=== PATIENT | female | born 1985 | race Caucasian/White ===

== ENCOUNTER → 2016-07-22 | Outpatient (CLI) | payer MEDICARE, MEDICAID | LOC: MW.CHRC 13:15 | PROVIDERS: ATTEND Family Medicine | DX: J00 Acute nasopharyngitis [common cold] (principal) | CPT/HCPCS: 87804; G0463 ==

== ENCOUNTER → 2016-08-21 | Outpatient (CLI) | payer MEDICARE, MEDICAID | LOC: MW.CHFP 08:00 | PROVIDERS: ATTEND Physician Assistant | DX: J20.9 Acute bronchitis, unspecified (principal) | CPT/HCPCS: G0463 ==

== ENCOUNTER → 2016-10-17 | Outpatient (CLI) | payer MEDICARE, MEDICAID | LOC: MW.CHRC 08:00 | PROVIDERS: ATTEND Family Medicine | DX: M25.551 Pain in right hip (principal); M25.552 Pain in left hip; R11.2 Nausea with vomiting, unspecified; Z98.84 Bariatric surgery status | CPT/HCPCS: G0463 ==

== ENCOUNTER 2016-12-06 13:20 | Emergency (ER) | payer MEDICARE, MEDICAID ==
[2016-12-06 13:58] VITALS: BP 125/83
[2016-12-06] MEDS ORDERED: Acetaminophen/HYDROcodone 325-7.5 MG Tab PO ONE (14:20)
--- NOTE | 2016-12-06 14:25 | EDM.PDOC ---
ED HPI GENERAL MEDICAL PROBLEM - General Chief Complaint: Headache Stated Complaint: HEADACHE Time Seen by Provider: 12/06/16 14:10 Source of Information: Reports: Patient History Limitations: Reports: No Limitations - History of Present Illness INITIAL COMMENTS - FREE TEXT/NARRATIVE: HISTORY AND PHYSICAL: History of present illness: [Patient is well-known to this ER. Complains of a frontal headache. Her symptoms have been going on for the past several days. She saw her PCP Dr. Cartwright yesterday who prescribed cefdinir for a sinus infection. She's been following with a local dentist for several teeth that need pulled due to ongoing chronic abscesses. She's been taking Tylenol for her dental pain and headache which is not helping. She complains of congestion in her nose and head. Complains of left ear pain. No sore throat. She has been able to blow out any nasal drainage. No nausea or vomiting or abdominal pain. No cough or chest congestion. Has no other complaints or concerns at this time.] Review of systems: As per history of present illness and below otherwise all systems reviewed and negative. Past medical history: As per history of present illness and as reviewed below otherwise noncontributory. Surgical history: As per history of present illness and as reviewed below otherwise noncontributory. Social history: No reported history of drug or alcohol abuse. Family history: As per history of present illness and as reviewed below otherwise noncontributory. Physical exam: HEENT: Atraumatic, normocephalic. Left TM is moderately erythematous with a mild effusion. Right TM is unremarkable. Nares are erythematous and boggy. Oral mucous membranes are pink and moist tonsillar swelling erythema or exudate. Tooth #24 and 25 are intact but show significant erythema and decay at their bases. Neck is supple no lymphadenopathy appreciated. Lungs: Clear to auscultation, breath sounds equal bilaterally. Heart: S1S2, regular rate and rhythm. No murmur.. Abdomen: Soft, nondistended, nontender. Negative for costovertebral tenderness. Neuro: Awake, alert, oriented. Motor and sensory unremarkable throughout. Exam nonfocal. Therapeutics: [Hydrocodone 7.5 mg/325 mg 1 po] Impression: [Headache Sinusitis Dental abscesses] Plan: [Continue antibiotics as prescribed. She was given 1 dose of hydrocodone in the ER. Encouraged her to continue Tylenol and start an [id number] decongestant. Follow up with Dr. Cartwright next week. She is in agreement with this plan with her questions answered and concerns are addressed.] Definitive disposition and diagnosis as appropriate pending reevaluation and review of above. frontal area head Pain Score (Numeric/FACES): 7 - Related Data Allergies Allergy/AdvReac Type Severity Reaction Status Date / Time clarithromycin [From Biaxin] Allergy Hives Verified 12/06/16 13:54 Iodinated Contrast- Oral and Allergy Difficulty Verified 12/06/16 13:54 IV Dye Breathing [Iodinated Contrast Media - IV Dye] ketorolac Allergy Nausea and Verified 12/06/16 13:54 Vomiting ketorolac tromethamine Allergy Nausea and Verified 12/06/16 13:54 [From Toradol] Vomiting lorazepam [From Ativan] Allergy Change Verified 12/06/16 13:54 Mental Status NSAIDS (Non-Steroidal Allergy Stomach Verified 12/06/16 13:54 Anti-Inflamma Upset tramadol Allergy Nausea and Verified 12/06/16 13:54 Vomiting tramadol HCl [From Ultracet] Allergy Cannot Verified 12/06/16 13:54 Remember Home Meds: Home Meds B12 Injection 1 dose IM ASDIRECTED 07/26/14 [History] Ondansetron [Ondansetron ODT] 1 tab PO ASDIRECTED 10/26/15 [History] Fluticasone Propionate [Flonase] 1 inh NASBOTH BID #1 bottle 02/20/16 [Rx] Zolpidem Tartrate [Ambien] 5 mg PRN 02/20/16 [History] Past Medical History - Past Health History Medical/Surgical History: Denies Medical/Surgical History HEENT History: Reports: Impaired Vision Cardiovascular History: Reports: None Respiratory History: Reports: Asthma, Pneumonia, Recurrent Gastrointestinal History: Reports: Bowel Obstruction, Other (See Below) Other Gastrointestinal History: gastric bypass Genitourinary History: Reports: None NETWORK CONSULTANT History: Reports: Spontaneous Musculoskeletal History: Reports: None Neurological History: Reports: Other (See Below) Other Neuro History: pseudo tumor, dystonia Psychiatric History: Reports: None Endocrine/Metabolic History: Reports: None Hematologic History: Reports: Anemia Immunologic History: Reports: Other (See Below) Other Immunologic History: Dystonia Oncologic (Cancer) History: Reports: None Dermatologic History: Reports: None - Infectious Disease History Infectious Disease History: Reports: None - Past Surgical History Head Surgeries/Procedures: Reports: Shunt HEENT Surgical History: Reports: Adenoidectomy, Oral Surgery, Tonsillectomy Cardiovascular Surgical History: Reports: None Neurological Surgical History: Reports: Other (See Below) Musculoskeletal Surgical History: Reports: Other (See Below) Dermatological Surgical History: Reports: None Social & Family History - Family History Family Medical History: Noncontributory - Tobacco Use Smoking Status *Q: Never Smoker Years of Tobacco use: 6 Packs/Tins Daily: 0.5 Used Tobacco, but Quit: Yes Month Tobacco Last Used: 07/2015 Second Hand Smoke Exposure: No - Caffeine Use Caffeine Use: Reports: None - Alcohol Use Days Per Week of Alcohol Use: 1 Number of Drinks Per Day: 4 Total Drinks Per Week: 4 - Recreational Drug Use Recreational Drug Use: No ED ROS GENERAL - Review of Systems Review Of Systems: ROS reveals no pertinent complaints other than HPI. - Physical Exam Exam: See Below Course - Vital Signs Last Recorded V/S: Last Vital Signs Temp 97.8 F 12/06/16 13:56 Pulse 80 12/06/16 13:56 Resp 18 12/06/16 13:56 BP 125/83 12/06/16 13:56 Pulse Ox 97 12/06/16 13:56 - Orders/Labs/Meds Meds: Medications Discontinued Medications Generic Name Dose Route Start Last Admin Trade Name Stacey PRN Reason Stop Dose Admin Hydrocodone Bitart/Acetaminophen 1 tab 12/06/16 14:20 12/06/16 14:32 [place] 325-7.5 Mg PO 12/06/16 14:21 1 tab ONETIME ONE Administration Departure - Departure Time of Disposition: 14:30 Disposition: Home, Self-Care 01 Condition: Good Clinical Impression: Head congestion - Discharge Information Instructions: Sinusitis, Adult, Cufh-[id number] Referrals: PCP,None [Primary Care Provider] - Forms: ED Department Discharge Additional Instructions: The following information is given to patients seen in the emergency department who are being discharged to home. This information is to outline your options for follow-up care. We provide all patients seen in our emergency department with a follow-up referral. The need for follow-up, as well as the timing and circumstances, are variable depending upon the specifics of your emergency department visit. If you don't have a primary care physician on staff, we will provide you with a referral. We always advise you to contact your personal physician following an emergency department visit to inform them of the circumstance of the visit and for follow-up with them and/or the need for any referrals to a consulting specialist. The emergency department will also refer you to a specialist when appropriate. This referral assures that you have the opportunity for follow-up care with a specialist. All of these measure are taken in an effort to provide you with optimal care, which includes your follow-up. Under all circumstances we always encourage you to contact your private physician who remains a resource for coordinating your care. When calling for follow-up care, please make the office aware that this follow-up is from your recent emergency room visit. If for any reason you are refused follow-up, please contact the [facility] emergency department at and asked to speak to the emergency department charge nurse. [address] [address] Recheck with PCP or at the clinic with the above in 24-48 hours. Continue Tylenol for discomfort. Take Mucinex D or other [id number] decongestants. Follow instructions on the box. Return to ER as needed as discussed.
== END 2016-12-06 14:34 | disposition home or self-care (01) ==
LOC: MW.ED 13:20
DX: J32.9 Chronic sinusitis, unspecified (principal); K04.7 Periapical abscess without sinus; J45.909 Unspecified asthma, uncomplicated; Z87.01 Personal history of pneumonia (recurrent); Z86.2 Personal history of diseases of the blood and blood-forming organs and certain disorders involving the immune mechanism; Z98.84 Bariatric surgery status; Z98.890 Other specified postprocedural states; Z88.1 Allergy status to other antibiotic agents; Z88.5 Allergy status to narcotic agent; Z88.6 Allergy status to analgesic agent; Z88.8 Allergy status to other drugs, medicaments and biological substances; Z91.041 Radiographic dye allergy status
CPT/HCPCS: 99282; A9270; 99283

== ENCOUNTER 2017-03-07 16:14 | Emergency (ER) | payer MEDICARE, MEDICAID ==
[2017-03-07 16:35] VITALS: BP 134/81
--- NOTE | 2017-03-07 17:08 | EDM.PDOC ---
ED HPI GENERAL MEDICAL PROBLEM - General Chief Complaint: Lower Extremity Injury/Pain Stated Complaint: PT HURT RT FOOT Time Seen by Provider: 03/07/17 16:16 Source of Information: Reports: Patient History Limitations: Reports: No Limitations - History of Present Illness INITIAL COMMENTS - FREE TEXT/NARRATIVE: History of present illness: []Patient fell down some stairs 4 days ago and continues to have right foot pain. On other injuries have healed clearheaded and elbow. She is here for an x- ray and reevaluation. Complaints of swelling of her foot and walking. Review of systems: As per history of present illness and below otherwise all systems reviewed and negative. Past medical history: As per history of present illness and as reviewed below otherwise noncontributory. Surgical history: As per history of present illness and as reviewed below otherwise noncontributory. Social history: No reported history of drug or alcohol abuse. Family history: As per history of present illness and as reviewed below otherwise noncontributory. Physical exam: General: Well developed, well nourished in NAD HEENT: Atraumatic, normocephalic, pupils reactive, negative for conjunctival pallor or scleral icterus, mucous membranes moist, throat clear, neck supple, nontender, trachea midline. Lungs: Clear to auscultation, breath sounds equal bilaterally, chest nontender. Heart: S1S2, regular, negative for clicks, rubs, or JVD. Abdomen: Soft, nondistended, nontender. Negative for masses or hepatosplenomegaly. Negative for costovertebral tenderness. Pelvis: Stable nontender. Genitourinary: Deferred. Rectal: Deferred. Extremities: Right foot with superficial abrasions to the base of the ankle. There is mild swelling of the foot throughout dorsalis pedis pulses are palpable , capillary refill is brisk, sensation is intact. Neurovascular unremarkable. Neuro: Awake, alert, oriented. Cranial nerves II through XII unremarkable. Cerebellum unremarkable. Motor and sensory unremarkable throughout. Exam nonfocal. Diagnostics: []X-rays foot negative for fracture Therapeutics: [] Impression: []Right foot sprain and abrasion Plan: []Ice elevate foot above the level her heart as much as possible Tylenol for pain return if symptoms worsen or change Definitive disposition and diagnosis as appropriate pending reevaluation and review of above. Right Ankle Pain Score (Numeric/FACES): 7 - Related Data Allergies Allergy/AdvReac Type Severity Reaction Status Date / Time clarithromycin [From Biaxin] Allergy Hives Verified 03/07/17 16:36 Iodinated Contrast- Oral and Allergy Difficulty Verified 03/07/17 16:36 IV Dye Breathing [Iodinated Contrast Media - IV Dye] ketorolac Allergy Nausea and Verified 03/07/17 16:36 Vomiting ketorolac tromethamine Allergy Nausea and Verified 03/07/17 16:36 [From Toradol] Vomiting lorazepam [From Ativan] Allergy Change Verified 03/07/17 16:36 Mental Status NSAIDS (Non-Steroidal Allergy Stomach Verified 03/07/17 16:36 Anti-Inflamma Upset tramadol Allergy Nausea and Verified 03/07/17 16:36 Vomiting tramadol HCl [From Ultracet] Allergy Cannot Verified 03/07/17 16:36 Remember Home Meds: Home Meds B12 Injection 1 dose IM ASDIRECTED 07/26/14 [History] Ondansetron [Ondansetron ODT] 1 tab PO ASDIRECTED 10/26/15 [History] Fluticasone Propionate [Flonase] 1 inh NASBOTH BID #1 bottle 02/20/16 [Rx] Zolpidem Tartrate [Ambien] 5 mg PO DAILY PRN 02/20/16 [History] Past Medical History - Past Health History Medical/Surgical History: Denies Medical/Surgical History HEENT History: Reports: Impaired Vision Cardiovascular History: Reports: None Respiratory History: Reports: Asthma, Pneumonia, Recurrent Gastrointestinal History: Reports: Bowel Obstruction, Other (See Below) Other Gastrointestinal History: gastric bypass Genitourinary History: Reports: None BATH ATTENDANT History: Reports: Spontaneous Musculoskeletal History: Reports: None Neurological History: Reports: Other (See Below) Other Neuro History: pseudo tumor, dystonia Psychiatric History: Reports: None, Anxiety Endocrine/Metabolic History: Reports: None Hematologic History: Reports: Anemia Immunologic History: Reports: Other (See Below) Other Immunologic History: Dystonia Oncologic (Cancer) History: Reports: None Dermatologic History: Reports: None - Infectious Disease History Infectious Disease History: Reports: Chicken Pox - Past Surgical History Head Surgeries/Procedures: Reports: Shunt HEENT Surgical History: Reports: Adenoidectomy, Oral Surgery, Tonsillectomy Cardiovascular Surgical History: Reports: None Neurological Surgical History: Reports: Other (See Below) Other Neurological Surgeries/Procedures: 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, to correct pseudotumor Musculoskeletal Surgical History: Reports: Other (See Below) Dermatological Surgical History: Reports: None Social & Family History - Family History Family Medical History: Noncontributory - Tobacco Use Smoking Status *Q: Former Smoker Years of Tobacco use: 6 Packs/Tins Daily: 0.5 Used Tobacco, but Quit: Yes Month Tobacco Last Used: 2015 Second Hand Smoke Exposure: No - Caffeine Use Caffeine Use: Reports: Soda - Alcohol Use Days Per Week of Alcohol Use: 1 Number of Drinks Per Day: 4 Total Drinks Per Week: 4 - Recreational Drug Use Recreational Drug Use: No Review of Systems - Review of Systems Review Of Systems: See Below ED EXAM, GENERAL - Physical Exam Exam: See Below (See history of present illness) Course - Vital Signs Last Recorded V/S: Last Vital Signs Temp 36.9 C 03/07/17 16:32 Pulse 126 H 03/07/17 16:32 Resp 12 03/07/17 16:32 BP 134/81 03/07/17 16:32 Pulse Ox 96 03/07/17 16:32 - Orders/Labs/Meds Orders: Active Orders 24 hr Category Date Time Status Splinting [RC] ASDIRECTED Care 03/07/17 17:03 Ordered Foot 2V Rt [CR] Stat Exams 03/07/17 16:27 Taken Departure - Departure Time of Disposition: 17:07 Disposition: Home, Self-Care 01 Condition: Good Clinical Impression: Other sprain of right foot, initial encounter - Discharge Information Instructions: Foot Sprain Referrals: PCP,None [Primary Care Provider] - Forms: ED Department Discharge Additional Instructions: The following information is given to patients seen in the emergency department who are being discharged to home. This information is to outline your options for follow-up care. We provide all patients seen in our emergency department with a follow-up referral. The need for follow-up, as well as the timing and circumstances, are variable depending upon the specifics of your emergency department visit. If you don't have a primary care physician on staff, we will provide you with a referral. We always advise you to contact your personal physician following an emergency department visit to inform them of the circumstance of the visit and for follow-up with them and/or the need for any referrals to a consulting specialist. The emergency department will also refer you to a specialist when appropriate. This referral assures that you have the opportunity for follow-up care with a specialist. All of these measure are taken in an effort to provide you with optimal care, which includes your follow-up. Under all circumstances we always encourage you to contact your private physician who remains a resource for coordinating your care. When calling for follow-up care, please make the office aware that this follow-up is from your recent emergency room visit. If for any reason you are refused follow-up, please contact the [facility] Emergency Department at and asked to speak to the emergency department charge nurse. Tylenol, ice, elevate foot as much as possible return to ER if symptoms worsen follow-up with primary care. [facility] [address] [place] [id number] - My Orders Last 24 Hours: My Active Orders 03/07/17 16:27 Foot 2V Rt [CR] Stat 03/07/17 17:03 Splinting [RC] ASDIRECTED - Assessment/Plan Last 24 Hours: My Active Orders 03/07/17 16:27 Foot 2V Rt [CR] Stat 03/07/17 17:03 Splinting [RC] ASDIRECTED
--- NOTE | 2017-03-10 15:59 | CR ---
EXAM DATE: 03/07/17 PATIENT'S AGE: 31 Patient: RATNA BURCH Facility: [place], [place] Site . Site : [id number] Study: XRay Extremity Right Foot-03/07/2017 4:54:12 PM Ordering Physician: Frank Oswald Final Report: HISTORY: Pain in right foot. Pedicular has gems on great toe nail. FINDINGS: Two views of the right foot demonstrates normal bone mineralization. No fracture or dislocation is identified. IMPRESSION: No acute bony abnormality identified. Dictated by Bharati Mccord MD @ 03/07/2017 4:57:10 PM Dictated by: Bharati Mccord MD @ 03/07/2017 16:57:18 (Electronic Signature) Report Signed by Proxy. [facility]ITAL[facility]
== END 2017-03-07 17:16 | disposition home or self-care (01) ==
LOC: MW.ED 16:14
DX: S93.691A Other sprain of right foot, initial encounter (principal); S90.811A Abrasion, right foot, initial encounter; J45.909 Unspecified asthma, uncomplicated; Z88.8 Allergy status to other drugs, medicaments and biological substances; Z88.6 Allergy status to analgesic agent; Z88.5 Allergy status to narcotic agent; Z91.041 Radiographic dye allergy status; Z79.899 Other long term (current) drug therapy; Z87.01 Personal history of pneumonia (recurrent); Z86.2 Personal history of diseases of the blood and blood-forming organs and certain disorders involving the immune mechanism; Z87.891 Personal history of nicotine dependence; W10.9XXA Fall (on) (from) unspecified stairs and steps, initial encounter
CPT/HCPCS: 73620-26-RT; 73620-RT; 99283

== ENCOUNTER 2017-06-29 14:57 | Emergency (ER) | payer MEDICARE, MEDICAID ==
[2017-06-29 15:12] VITALS: BP 130/76
--- NOTE | 2017-06-29 16:05 | EDM.PDOC ---
ED HPI GENERAL MEDICAL PROBLEM - General Chief Complaint: General Stated Complaint: COUGH, CONGESTION Time Seen by Provider: 06/29/17 15:59 Source of Information: Reports: Patient History Limitations: Reports: No Limitations - History of Present Illness INITIAL COMMENTS - FREE TEXT/NARRATIVE: HISTORY AND PHYSICAL: History of present illness: [Patient comes to the emergency room complaining of head and chest congestion for the past 2-1/2 weeks. She has not taken anything [id number] for her symptoms and is gradually feeling worse. Feels that she is worsening over the past 48 hours. No headaches but she has pressure over her forehead. Is blowing out thick green nasal discharge that is occasionally mixed with blood. She is also coughing up thick green sputum. No fever or chills. No abdominal pain nausea or vomiting. No wheezing shortness of breath or difficulty breathing. Has no other complaints or concerns at this time.] Review of systems: As per history of present illness and below otherwise all systems reviewed and negative. Past medical history: As per history of present illness and as reviewed below otherwise noncontributory. Surgical history: As per history of present illness and as reviewed below otherwise noncontributory. Social history: No reported history of drug or alcohol abuse. Family history: As per history of present illness and as reviewed below otherwise noncontributory. Physical exam: HEENT: Atraumatic, normocephalic. TMs are pearly pleitez and without erythema. Oral mucous membranes are pink and moist. No tonsillar swelling erythema or exudate. Nares are patent but boggy. Purulent discharge present. Frontal sinus area tender with palpation. Lungs: Clear to auscultation, breath sounds equal bilaterally. No wheezing crackles or rales. Heart: S1S2, regular rate and rhythm. Abdomen: Soft, nondistended, nontender. Genitourinary: Deferred. Rectal: Deferred. Extremities: Atraumatic. Neurovascular unremarkable. Neuro: Awake, alert, oriented. Motor and sensory unremarkable throughout. Exam nonfocal. Diagnostics: [influenza A&B] Impression: [uri] Plan: [Influenza A is negative. Augmentin 875 mg 1 by mouth given in the ER. Rx written for Augmentin 875 mg twice a day 7 days 0 refills. Strict return precautions are reviewed.] Definitive disposition and diagnosis as appropriate pending reevaluation and review of above. chest Pain Score (Numeric/FACES): 4 - Related Data Allergies Allergy/AdvReac Type Severity Reaction Status Date / Time clarithromycin [From Biaxin] Allergy Hives Verified 06/29/17 15:09 Iodinated Contrast- Oral and Allergy Difficulty Verified 06/29/17 15:09 IV Dye Breathing [Iodinated Contrast Media - IV Dye] ketorolac Allergy Nausea and Verified 06/29/17 15:09 Vomiting ketorolac tromethamine Allergy Nausea and Verified 06/29/17 15:09 [From Toradol] Vomiting lorazepam [From Ativan] Allergy Change Verified 06/29/17 15:09 Mental Status NSAIDS (Non-Steroidal Allergy Stomach Verified 06/29/17 15:09 Anti-Inflamma Upset tramadol Allergy Nausea and Verified 06/29/17 15:09 Vomiting tramadol HCl [From Ultracet] Allergy Cannot Verified 06/29/17 15:09 Remember Home Meds: Home Meds B12 Injection 1 dose IM ASDIRECTED 07/26/14 [History] Ondansetron [Ondansetron ODT] 1 tab PO ASDIRECTED 10/26/15 [History] Fluticasone Propionate [Flonase] 1 inh NASBOTH BID #1 bottle 02/20/16 [Rx] Zolpidem Tartrate [Ambien] 5 mg PO DAILY PRN 02/20/16 [History] Past Medical History - Past Health History Medical/Surgical History: Denies Medical/Surgical History HEENT History: Reports: Impaired Vision Cardiovascular History: Reports: None Respiratory History: Reports: Asthma, Pneumonia, Recurrent Gastrointestinal History: Reports: Bowel Obstruction, Other (See Below) Other Gastrointestinal History: gastric bypass Genitourinary History: Reports: None 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 Musculoskeletal History: Reports: None Neurological History: Reports: Other (See Below) Other Neuro History: pseudo tumor, dystonia Psychiatric History: Reports: None, Anxiety Endocrine/Metabolic History: Reports: None Hematologic History: Reports: Anemia Immunologic History: Reports: Other (See Below) Other Immunologic History: Dystonia Oncologic (Cancer) History: Reports: None Dermatologic History: Reports: None - Infectious Disease History Infectious Disease History: Reports: Chicken Pox - Past Surgical History Head Surgeries/Procedures: Reports: Shunt HEENT Surgical History: Reports: Adenoidectomy, Oral Surgery, Tonsillectomy Cardiovascular Surgical History: Reports: None Respiratory Surgical History: Reports: None GI Surgical History: Reports: None Female Surgical History: Reports: None Neurological Surgical History: Reports: Other (See Below) Other Neurological Surgeries/Procedures: 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, to correct pseudotumor Musculoskeletal Surgical History: Reports: Other (See Below) Dermatological Surgical History: Reports: None Social & Family History - Family History Family Medical History: Noncontributory - Tobacco Use Smoking Status *Q: Never Smoker Years of Tobacco use: 6 Packs/Tins Daily: 0.5 Used Tobacco, but Quit: Yes Month Tobacco Last Used: 2015 Second Hand Smoke Exposure: No - Caffeine Use Caffeine Use: Reports: Soda - Alcohol Use Days Per Week of Alcohol Use: 1 Number of Drinks Per Day: 4 Total Drinks Per Week: 4 - Recreational Drug Use Recreational Drug Use: No ED ROS GENERAL - Review of Systems Review Of Systems: ROS reveals no pertinent complaints other than HPI. ED EXAM, GENERAL - Physical Exam Exam: See Below Course - Vital Signs Last Recorded V/S: Last Vital Signs Temp 97.2 F 06/29/17 15:09 Pulse 94 06/29/17 15:09 Resp 18 06/29/17 15:09 BP 130/76 06/29/17 15:09 Pulse Ox 97 06/29/17 15:09 - Orders/Labs/Meds Meds: Medications Discontinued Medications Generic Name Dose Route Start Last Admin Trade Name Stacey PRN Reason Stop Dose Admin Amoxicillin/Clavulanate Potassium 1 tab 06/29/17 17:15 06/29/17 17:21 Augmentin 875 Mg/125 Mg PO 06/29/17 17:16 1 tab ONETIME ONE Administration Departure - Departure Time of Disposition: 17:20 Disposition: Home, Self-Care 01 Condition: Good Clinical Impression: URI (upper respiratory infection) Qualifiers: URI type: unspecified viral URI Qualified Code(s): J06.9 - Acute upper respiratory infection, unspecified - Discharge Information Instructions: Upper Respiratory Infection, Adult, [id number] Referrals: Jhon Wade [Primary Care Provider] - Forms: ED Department Discharge Additional Instructions: The following information is given to patients seen in the emergency department who are being discharged to home. This information is to outline your options for follow-up care. We provide all patients seen in our emergency department with a follow-up referral. The need for follow-up, as well as the timing and circumstances, are variable depending upon the specifics of your emergency department visit. If you don't have a primary care physician on staff, we will provide you with a referral. We always advise you to contact your personal physician following an emergency department visit to inform them of the circumstance of the visit and for follow-up with them and/or the need for any referrals to a consulting specialist. The emergency department will also refer you to a specialist when appropriate. This referral assures that you have the opportunity for follow-up care with a specialist. All of these measure are taken in an effort to provide you with optimal care, which includes your follow-up. Under all circumstances we always encourage you to contact your private physician who remains a resource for coordinating your care. When calling for follow-up care, please make the office aware that this follow-up is from your recent emergency room visit. If for any reason you are refused follow-up, please contact the [facility] emergency department at and asked to speak to the emergency department charge nurse. [facility] [address] [place] [id number] Follow-up with your local primary care provider in the next 48-72 hours as he may require more antibiotics than what has been prescribed. Take as prescribed. Take Robitussin or Delsym cough syrup as needed or chest congestion. Tylenol or ibuprofen as needed for fever or discomfort. Return to ER as needed as discussed.
[2017-06-29] MEDS ORDERED: Amoxicillin/Clavulanate K 875-125 MG Tab PO ONE (17:15)
== END 2017-06-29 17:30 | disposition home or self-care (01) ==
LOC: MW.ED 14:57
DX: J06.9 Acute upper respiratory infection, unspecified (principal); J45.909 Unspecified asthma, uncomplicated; Z87.891 Personal history of nicotine dependence; Z88.1 Allergy status to other antibiotic agents; Z88.6 Allergy status to analgesic agent; Z88.5 Allergy status to narcotic agent; Z88.8 Allergy status to other drugs, medicaments and biological substances; Z91.041 Radiographic dye allergy status
CPT/HCPCS: 87804; 99283; A9270

== ENCOUNTER 2017-08-10 09:22 | Emergency (ER) | payer MEDICARE, MEDICAID ==
[2017-08-10] MEDS ORDERED: Sodium Chloride 0.9% 1,000 ML IV ONE (09:30)
--- NOTE | 2017-08-10 09:31 | EDM.PDOC ---
ED HPI GENERAL MEDICAL PROBLEM - General Chief Complaint: General Stated Complaint: LEGS PAIN Time Seen by Provider: 08/10/17 10:30 - History of Present Illness INITIAL COMMENTS - FREE TEXT/NARRATIVE: HISTORY AND PHYSICAL: History of present illness: Patient's 31-year-old female presented [place] generalized body aches over last several days she denies fever chills nausea vomiting chest pain shortness of breath abdominal pain states she had some loose stool she denies any influenza immunization denies any other concern. Review of systems: As per history of present illness and below otherwise all systems reviewed and negative. Past medical history: As per history of present illness and as reviewed below otherwise noncontributory. Surgical history: As per history of present illness and as reviewed below otherwise noncontributory. Social history: No reported history of drug or alcohol abuse. Family history: As per history of present illness and as reviewed below otherwise noncontributory. Physical exam: HEENT: Atraumatic, normocephalic, pupils reactive, negative for conjunctival pallor or scleral icterus, mucous membranes moist, throat clear, neck supple, nontender, trachea midline. Lungs: Clear to auscultation, breath sounds equal bilaterally, chest nontender. Heart: S1S2, regular, negative for clicks, rubs, or JVD. Abdomen: Soft, nondistended, nontender. Negative for masses or hepatosplenomegaly. Negative for costovertebral tenderness. Pelvis: Stable nontender. Genitourinary: Deferred. Rectal: Deferred. Extremities: Atraumatic, negative for cords or calf pain. Neurovascular unremarkable. Neuro: Awake, alert, oriented. Cranial nerves II through XII unremarkable. Cerebellum unremarkable. Motor and sensory unremarkable throughout. Exam nonfocal. Diagnostics: Influenza screen Therapeutics: None Impression: #1 myalgia probable viral syndrome Definitive disposition and diagnosis as appropriate pending reevaluation and review of above. bilateral legs Pain Score (Numeric/FACES): 7 - Related Data Allergies Allergy/AdvReac Type Severity Reaction Status Date / Time clarithromycin [From Biaxin] Allergy Hives Verified 08/10/17 09:26 Iodinated Contrast- Oral and Allergy Difficulty Verified 08/10/17 09:26 IV Dye Breathing [Iodinated Contrast Media - IV Dye] ketorolac Allergy Nausea and Verified 08/10/17 09:26 Vomiting ketorolac tromethamine Allergy Nausea and Verified 08/10/17 09:26 [From Toradol] Vomiting lorazepam [From Ativan] Allergy Change Verified 08/10/17 09:26 Mental Status NSAIDS (Non-Steroidal Allergy Stomach Verified 08/10/17 09:26 Anti-Inflamma Upset tramadol Allergy Nausea and Verified 08/10/17 09:26 Vomiting tramadol HCl [From Ultracet] Allergy Cannot Verified 08/10/17 09:26 Remember Home Meds: Home Meds B12 Injection 1 dose IM ASDIRECTED 07/26/14 [History] Ondansetron [Ondansetron ODT] 1 tab PO ASDIRECTED 10/26/15 [History] Fluticasone Propionate [Flonase] 1 inh NASBOTH BID #1 bottle 02/20/16 [Rx] Past Medical History - Past Health History Medical/Surgical History: Denies Medical/Surgical History HEENT History: Reports: Impaired Vision Cardiovascular History: Reports: None Respiratory History: Reports: Asthma, Pneumonia, Recurrent Gastrointestinal History: Reports: Bowel Obstruction, Other (See Below) Other Gastrointestinal History: gastric bypass Genitourinary History: Reports: None 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 Musculoskeletal History: Reports: None Neurological History: Reports: Other (See Below) Other Neuro History: pseudo tumor, dystonia Psychiatric History: Reports: None, Anxiety Endocrine/Metabolic History: Reports: None Hematologic History: Reports: Anemia Immunologic History: Reports: Other (See Below) Other Immunologic History: Dystonia Oncologic (Cancer) History: Reports: None Dermatologic History: Reports: None - Infectious Disease History Infectious Disease History: Reports: Chicken Pox - Past Surgical History Head Surgeries/Procedures: Reports: Shunt HEENT Surgical History: Reports: Adenoidectomy, Oral Surgery, Tonsillectomy Cardiovascular Surgical History: Reports: None Respiratory Surgical History: Reports: None GI Surgical History: Reports: None Female Surgical History: Reports: None Neurological Surgical History: Reports: Other (See Below) Other Neurological Surgeries/Procedures: 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, to correct pseudotumor Musculoskeletal Surgical History: Reports: Other (See Below) Dermatological Surgical History: Reports: None Social & Family History - Family History Family Medical History: Noncontributory - Tobacco Use Smoking Status *Q: Never Smoker Years of Tobacco use: 6 Packs/Tins Daily: 0.5 Used Tobacco, but Quit: Yes Month Tobacco Last Used: 2015 Second Hand Smoke Exposure: No - Caffeine Use Caffeine Use: Reports: Soda - Alcohol Use Days Per Week of Alcohol Use: 1 Number of Drinks Per Day: 4 Total Drinks Per Week: 4 - Recreational Drug Use Recreational Drug Use: No ED ROS GENERAL - Review of Systems Review Of Systems: ROS reveals no pertinent complaints other than HPI. ED EXAM, GENERAL - Physical Exam Exam: See Below (See dictation) Course - Vital Signs Last Recorded V/S: Last Vital Signs Temp 37.8 C 08/10/17 10:44 Pulse 72 08/10/17 10:44 Resp 18 08/10/17 10:44 BP 131/88 08/10/17 10:44 Pulse Ox 96 08/10/17 10:44 - Orders/Labs/Meds Labs: Laboratory Tests 08/10/17 08/10/17 08/10/17 Range/Units 09:37 09:37 09:37 WBC 8.51 (4.0-11.0) K/uL RBC 4.87 (4.30-5.90) M/uL Hgb 12.8 (12.0-16.0) g/dL Hct 39.6 (36.0-46.0) % MCV 81.3 (80.0-98.0) fL MCH 26.3 L (27.0-32.0) pg MCHC 32.3 (31.0-37.0) g/dL RDW Std Deviation 48.8 (28.0-62.0) fl RDW Coeff of Saúl 16 H (11.0-15.0) % Plt Count 318 (150-400) K/uL MPV 10.50 (7.40-12.00) fL Add Manual Diff YES Neutrophils % (Manual) 53 (48.0-80.0) % Band Neutrophils % 3 % Lymphocytes % (Manual) 32 (16.0-40.0) % Atypical Lymphs % 5 Monocytes % (Manual) 6 (0.0-15.0) % Eosinophils % (Manual) 1 (0.0-7.0) % Nucleated RBC % 0.0 /100WBC Absolute Seg Neuts 4.5 (1.4-5.7) Band Neutrophils # 0.3 Lymphocytes # (Manual) 2.7 H (0.6-2.4) Monocytes # (Manual) 0.5 (0.0-0.8) Eosinophils # (Manual) 0.1 (0.0-0.7) Nucleated RBCs # 0 K/uL Sodium 138 (136-146) mmol/L Potassium 3.5 (3.5-5.1) mmol/L Chloride 107 (98-110) mmol/L Carbon Dioxide 20 L (21-31) mmol/L BUN 8 (6.0-23.0) mg/dL Creatinine 0.7 (0.6-1.5) mg/dL Est Cr Clr Drug Dosing 106.70 mL/min Estimated GFR (MDRD) > 60.0 ml/min Glucose 99 (60-110) mg/dL Calcium 8.9 (8.8-10.8) mg/dL Total Bilirubin 0.3 (0.1-1.5) mg/dL AST 39 (5-40) IU/L ALT 32 (8-54) IU/L Alkaline Phosphatase 89 (40-150) Total Protein 7.0 (6.0-8.0) g/dL Albumin 3.9 (3.5-5.0) g/dL Globulin 3.1 (2.0-3.5) g/dL Albumin/Globulin Ratio 1.3 (1.3-2.8) HCG, Qual NEGATIVE (NEG) Meds: Medications Discontinued Medications Generic Name Dose Route Start Last Admin Trade Name Stacey PRN Reason Stop Dose Admin Acetaminophen 650 mg 08/10/17 10:27 08/10/17 10:43 Tylenol PO 08/10/17 10:28 650 mg NOW ONE Administration Sodium Chloride 1,000 mls @ 999 mls/hr 08/10/17 09:30 08/10/17 09:51 Normal Saline IV 08/10/17 10:30 Not Given STAT ONE Sodium Chloride 500 mls @ 999 mls/hr 08/10/17 10:00 08/10/17 09:51 Normal Saline IV 999 mls/hr .BOLUS THANIA Administration Departure - Departure Time of Disposition: : Disposition: Home, Self-Care 01 Condition: Good Clinical Impression: Encounter for medical screening examination - Discharge Information Instructions: Leg Cramps Referrals: Jhon Wade [Resident] - Forms: ED Department Discharge
[2017-08-10] MEDS ORDERED: Sodium Chloride 0.9% 500 ML IV SCH (10:00)
[2017-08-10 10:13] LABS: CHLORIDE,CL 107 mmol/L (98-110); SODIUM,NA 138 mmol/L (136-146)
[2017-08-10] MEDS ORDERED: Acetaminophen 325 MG Tab PO ONE (10:27)
[2017-08-10 10:45] VITALS: BP 131/88
== END 2017-08-10 10:45 | disposition home or self-care (01) ==
LOC: MW.ED 09:22
DX: M79.1 Myalgia (principal); J45.909 Unspecified asthma, uncomplicated; Z87.891 Personal history of nicotine dependence; Z88.1 Allergy status to other antibiotic agents; Z88.5 Allergy status to narcotic agent; Z88.6 Allergy status to analgesic agent; Z88.8 Allergy status to other drugs, medicaments and biological substances; Z91.041 Radiographic dye allergy status
CPT/HCPCS: 36415; 80053; 84703; 85025; 87804; 96360; 99283; A9270; J7040

== ENCOUNTER 2017-09-30 03:24 | Emergency (ER) | payer MEDICARE, MEDICAID ==
[2017-09-30] MEDS ORDERED: Sodium Chloride 0.9% 10 ML Syringe FLUSH PRN (03:41)
[2017-09-30] MEDS ORDERED: Sodium Chloride 0.9% 2.5 ML Syringe FLUSH PRN (03:41)
[2017-09-30] MEDS ORDERED: Sodium Chloride 0.9% 1,000 ML IV SCH (03:45)
[2017-09-30 04:20] LABS: CHLORIDE,CL 108 mmol/L (98-107); SODIUM,NA 142 mmol/L (136-145)
--- NOTE | 2017-09-30 05:03 | EDM.PDOC ---
ED HPI GENERAL MEDICAL PROBLEM - General Chief Complaint: Respiratory Problem Stated Complaint: PERSISTENT COUGH Time Seen by Provider: 09/30/17 04:59 - History of Present Illness INITIAL COMMENTS - FREE TEXT/NARRATIVE: HISTORY AND PHYSICAL: History of present illness: Patient 32-year-old female presents with concern of cough sore throat denies shortness of breath nausea vomiting fever chills or other complaints Review of systems: As per history of present illness and below otherwise all systems reviewed and negative. Past medical history: As per history of present illness and as reviewed below otherwise noncontributory. Surgical history: As per history of present illness and as reviewed below otherwise noncontributory. Social history: No reported history of drug or alcohol abuse. Family history: As per history of present illness and as reviewed below otherwise noncontributory. Physical exam: HEENT: Atraumatic, normocephalic, pupils reactive, negative for conjunctival pallor or scleral icterus, mucous membranes moist, throat clear, neck supple, nontender, trachea midline. Lungs: Clear to auscultation, breath sounds equal bilaterally, chest nontender. Heart: S1S2, regular, negative for clicks, rubs, or JVD. Abdomen: Soft, nondistended, nontender. Negative for masses or hepatosplenomegaly. Negative for costovertebral tenderness. Pelvis: Stable nontender. Genitourinary: Deferred. Rectal: Deferred. Extremities: Atraumatic, negative for cords or calf pain. Neurovascular unremarkable. Neuro: Awake, alert, oriented. Cranial nerves II through XII unremarkable. Cerebellum unremarkable. Motor and sensory unremarkable throughout. Exam nonfocal. Diagnostics: CBC CMP Monospot chest x-ray Therapeutics: None Impression: #1 viral syndrome Definitive disposition and diagnosis as appropriate pending reevaluation and review of above. chest Pain Score (Numeric/FACES): 5 - Related Data Allergies Allergy/AdvReac Type Severity Reaction Status Date / Time clarithromycin [From Biaxin] Allergy Hives Verified 09/30/17 03:29 Iodinated Contrast- Oral and Allergy Difficulty Verified 09/30/17 03:29 IV Dye Breathing [Iodinated Contrast Media - IV Dye] ketorolac Allergy Nausea and Verified 09/30/17 03:29 Vomiting ketorolac tromethamine Allergy Nausea and Verified 09/30/17 03:29 [From Toradol] Vomiting lorazepam [From Ativan] Allergy Change Verified 09/30/17 03:29 Mental Status NSAIDS (Non-Steroidal Allergy Stomach Verified 09/30/17 03:29 Anti-Inflamma Upset tramadol Allergy Nausea and Verified 09/30/17 03:29 Vomiting tramadol HCl [From Ultracet] Allergy Cannot Verified 09/30/17 03:29 Remember Home Meds: Home Meds B12 Injection 1 dose IM ASDIRECTED 07/26/14 [History] Acetaminophen [Tylenol] 650 mg PO ASDIRECTED 09/30/17 [History] Albuterol [IJD: Albuterol HFA] 2 puff IH ASDIRECTED 09/30/17 [History] Past Medical History - Past Health History Medical/Surgical History: Denies Medical/Surgical History HEENT History: Reports: Impaired Vision, Sinusitis Cardiovascular History: Reports: None Respiratory History: Reports: Asthma, Pneumonia, Recurrent Gastrointestinal History: Reports: Bowel Obstruction, Other (See Below) Other Gastrointestinal History: gastric bypass Genitourinary History: Reports: None [employer] History: Reports: Spontaneous Musculoskeletal History: Reports: None Neurological History: Reports: Headaches, Chronic, Other (See Below) Other Neuro History: pseudo tumor, dystonia Psychiatric History: Reports: Anxiety Endocrine/Metabolic History: Reports: None Hematologic History: Reports: Anemia Immunologic History: Reports: Other (See Below) Other Immunologic History: Dystonia Oncologic (Cancer) History: Reports: None Dermatologic History: Reports: None - Infectious Disease History Infectious Disease History: Reports: Chicken Pox Other Infectious Disease History: childhood - Past Surgical History Head Surgeries/Procedures: Reports: Shunt HEENT Surgical History: Reports: Adenoidectomy, Oral Surgery, Tonsillectomy Cardiovascular Surgical History: Reports: None Respiratory Surgical History: Reports: None GI Surgical History: Reports: None Female Surgical History: Reports: None Neurological Surgical History: Reports: Other (See Below) Other Neurological Surgeries/Procedures: 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, to correct pseudotumor Dermatological Surgical History: Reports: None Social & Family History - Family History Family Medical History: Noncontributory - Tobacco Use Smoking Status *Q: Never Smoker Years of Tobacco use: 6 Packs/Tins Daily: 0.5 Used Tobacco, but Quit: Yes Month/Year Tobacco Last Used: 2015 Second Hand Smoke Exposure: No - Caffeine Use Caffeine Use: Reports: Soda - Alcohol Use Days Per Week of Alcohol Use: 1 Number of Drinks Per Day: 4 Total Drinks Per Week: 4 - Recreational Drug Use Recreational Drug Use: No ED ROS GENERAL - Review of Systems Review Of Systems: ROS reveals no pertinent complaints other than HPI. ED EXAM, GENERAL - Physical Exam Exam: See Below (See dictation) Course - Vital Signs Last Recorded V/S: Last Vital Signs Temp 36.8 C 09/30/17 04:49 Pulse 102 H 09/30/17 04:49 Resp 20 09/30/17 04:49 BP 128/83 09/30/17 04:49 Pulse Ox 98 09/30/17 04:49 - Orders/Labs/Meds Orders: Active Orders 24 hr Category Date Time Status Chest 2V [CR] Stat Exams 09/30/17 03:41 Taken CULTURE STREP A CONFIRMATION [] Stat Lab 09/30/17 03:55 Results INFLUENZA A+B AG SCREEN [] Stat Lab 09/30/17 03:55 Ordered STREP SCRN A RAPID W CULT CONF [] Stat Lab 09/30/17 03:55 Ordered Sodium Chloride 0.9% [Normal Saline] 1,000 ml Med 09/30/17 03:45 Active IV ASDIRECTED Sodium Chloride 0.9% [Saline Flush] Med 09/30/17 03:41 Active 10 ml FLUSH ASDIRECTED PRN Sodium Chloride 0.9% [Saline Flush] Med 09/30/17 03:41 Active 2.5 ml FLUSH ASDIRECTED PRN Saline Lock Insert [OM.PC] Stat Oth 09/30/17 03:41 Ordered Medication Orders Sodium Chloride (Normal Saline) 1,000 mls @ 999 mls/hr IV ASDIRECTED [facility] Last Admin: 09/30/17 03:56 Dose: 999 mls/hr Sodium Chloride (Saline Flush) 10 ml FLUSH ASDIRECTED PRN PRN Reason: Keep Vein Open Sodium Chloride (Saline Flush) 2.5 ml FLUSH ASDIRECTED PRN PRN Reason: Keep Vein Open Labs: Laboratory Tests 09/30/17 09/30/17 09/30/17 Range/Units 03:41 03:50 03:50 WBC 8.26 (4.0-11.0) K/uL RBC 4.60 (4.30-5.90) M/uL Hgb 12.0 (12.0-16.0) g/dL Hct 37.4 (36.0-46.0) % MCV 81.3 (80.0-98.0) fL MCH 26.1 L (27.0-32.0) pg MCHC 32.1 (31.0-37.0) g/dL RDW Std Deviation 55.2 (28.0-62.0) fl RDW Coeff of Saúl 19 H (11.0-15.0) % Plt Count 440 H (150-400) K/uL MPV 10.50 (7.40-12.00) fL Neut % (Auto) 33.1 L (48.0-80.0) % Lymph % (Auto) 54.2 H (16.0-40.0) % [place] % (Auto) 7.4 (0.0-15.0) % Eos % (Auto) 4.1 (0.0-7.0) % Baso % (Auto) 1.2 (0.0-1.5) % Neut # (Auto) 2.7 (1.4-5.7) K/uL Lymph # (Auto) 4.5 H (0.6-2.4) K/uL [place] # (Auto) 0.6 (0.0-0.8) K/uL Eos # (Auto) 0.3 (0.0-0.7) K/uL Baso # (Auto) 0.1 (0.0-0.1) K/uL Nucleated RBC % 0.0 /100WBC Nucleated RBCs # 0 K/uL Sodium 142 (136-145) mmol/L Potassium 3.7 (3.5-5.1) mmol/L Chloride 108 H (98-107) mmol/L Carbon Dioxide 22.9 (21.0-32.0) mmol/L BUN 5 L (7.0-18.0) mg/dL Creatinine 0.6 (0.6-1.0) mg/dL Est Cr Clr Drug Dosing TNP Estimated GFR (MDRD) > 60.0 ml/min Glucose 94 (74-106) mg/dL Calcium 8.8 (8.5-10.1) mg/dL Total Bilirubin 0.2 (0.2-1.0) mg/dL AST 23 (15-37) IU/L ALT 19 (14-63) IU/L Alkaline Phosphatase 104 (46-116) U/L Total Protein 7.8 (6.4-8.2) g/dL Albumin 3.5 (3.4-5.0) g/dL Globulin 4.3 H (2.0-3.5) g/dL Albumin/Globulin Ratio 0.8 L (1.3-2.8) HCG, Qual NEGATIVE (NEG) Monoscreen NEGATIVE (NEG) Meds: Medications Generic Name Dose Route Start Last Admin Trade Name Freq PRN Reason Stop Dose Admin Sodium Chloride 1,000 mls @ 999 mls/hr 09/30/17 03:45 09/30/17 03:56 Normal Saline IV 999 mls/hr ASDIRECTED THANIA Administration Sodium Chloride 10 ml 09/30/17 03:41 Saline Flush FLUSH ASDIRECTED PRN Keep Vein Open Sodium Chloride 2.5 ml 09/30/17 03:41 Saline Flush FLUSH ASDIRECTED PRN Keep Vein Open Departure - Departure Time of Disposition: 05:02 Disposition: Home, Self-Care 01 Condition: Good Clinical Impression: Viral syndrome - Discharge Information Referrals: Jhon Wade [Primary Care Provider] - Additional Instructions: The following information is given to patients seen in the emergency department who are being discharged to home. This information is to outline your options for follow-up care. We provide all patients seen in our emergency department with a follow-up referral. The need for follow-up, as well as the timing and circumstances, are variable depending upon the specifics of your emergency department visit. If you don't have a primary care physician on staff, we will provide you with a referral. We always advise you to contact your personal physician following an emergency department visit to inform them of the circumstance of the visit and for follow-up with them and/or the need for any referrals to a consulting specialist. The emergency department will also refer you to a specialist when appropriate. This referral assures that you have the opportunity for followup care with a specialist. All of these measure are taken in an effort to provide you with optimal care, which includes your followup. Under all circumstances we always encourage you to contact your private physician who remains a resource for coordinating your care. When calling for followup care, please make the office aware that this follow-up is from your recent emergency room visit. If for any reason you are refused follow-up, please contact the [facility] emergency department at and asked to speak to the emergency department charge nurse. Tylenol as directed follow-up primary medical doctor return as needed as discussed - My Orders Last 24 Hours: My Active Orders 09/30/17 03:41 Chest 2V [CR] Stat Sodium Chloride 0.9% [Saline Flush] 10 ml FLUSH ASDIRECTED PRN Sodium Chloride 0.9% [Saline Flush] 2.5 ml FLUSH ASDIRECTED PRN Saline Lock Insert [OM.PC] Stat 09/30/17 03:45 Sodium Chloride 0.9% [Normal Saline] 1,000 ml IV ASDIRECTED 09/30/17 03:55 CULTURE STREP A CONFIRMATION [RM] Stat INFLUENZA A+B AG SCREEN [RM] Stat STREP SCRN A RAPID W CULT CONF [RM] Stat - Assessment/Plan Last 24 Hours: My Active Orders 09/30/17 03:41 Chest 2V [CR] Stat Sodium Chloride 0.9% [Saline Flush] 10 ml FLUSH ASDIRECTED PRN Sodium Chloride 0.9% [Saline Flush] 2.5 ml FLUSH ASDIRECTED PRN Saline Lock Insert [OM.PC] Stat 09/30/17 03:45 Sodium Chloride 0.9% [Normal Saline] 1,000 ml IV ASDIRECTED 09/30/17 03:55 CULTURE STREP A CONFIRMATION [RM] Stat INFLUENZA A+B AG SCREEN [RM] Stat STREP SCRN A RAPID W CULT CONF [RM] Stat
[2017-09-30 05:20] VITALS: BP 114/84
--- NOTE | 2017-09-30 13:18 | CR ---
EXAM DATE: 09/30/17 PATIENT'S AGE: 32 Patient: RATNA BURCH Facility: [place], [place] Site . Site : [id number] Study: XRay Chest [id number]/17/2018 4:34:36 AM Ordering Physician: Doctor Raymundo Final Report: INDICATION: Cough x3d TECHNIQUE: Chest 2 views. COMPARISON: 04/10/17 FINDINGS: Cardiovascular and mediastinum: Heart size and vasculature are normal in caliber and appearance. Mediastinum is within normal limits. Lungs and pleural spaces: Lungs are clear. No sign of infiltrate or mass. No sign of pleural effusion. No pneumothorax. Bones and soft tissues: No significant findings. IMPRESSION: Unremarkable chest. Dictated by: Ras Paula MD @ 09/30/2017 04:46:33 (Electronic Signature) Report Signed by Proxy. VANIA
== END 2017-09-30 05:17 | disposition home or self-care (01) ==
LOC: MW.ED 03:24
DX: B34.9 Viral infection, unspecified (principal); Z91.041 Radiographic dye allergy status; Z88.6 Allergy status to analgesic agent; Z88.1 Allergy status to other antibiotic agents; Z87.891 Personal history of nicotine dependence
CPT/HCPCS: 71046; 80053; 84703; 85025; 86308; 87081; 87804; 87880; 96360; 99285; J7040

== ENCOUNTER 2018-01-24 22:27 | Emergency (ER) | payer MEDICARE, MEDICAID ==
[2018-01-24] MEDS ORDERED: Albuterol/Ipratropium 3.0-0.5 MG/3 ML Neb Soln NEB ONE (23:03)
[2018-01-24] MEDS ORDERED: Ketorolac 60 MG/2 ML SDV IM ONE (23:03)
--- NOTE | 2018-01-24 23:18 | EDM.PDOC ---
ED HPI GENERAL MEDICAL PROBLEM - General Chief Complaint: General Stated Complaint: BAD COLD AND BACK PAIN Time Seen by Provider: 01/24/18 22:29 Source of Information: Reports: Patient History Limitations: Reports: No Limitations - History of Present Illness INITIAL COMMENTS - FREE TEXT/NARRATIVE: HISTORY AND PHYSICAL: History of present illness: 32-year-old female presenting to emergency department with chief complaint of sinus congestion and cough 2 days. Patient states that for the past 2 days she's had sinus congestion as well as a productive cough with greenish yellow sputum. Also states that she's had subjective fevers on and off. Denies any nausea, vomiting, abdominal pain, dysuria, hematuria, also is having some back pain which she states makes her her cough worse. She is not a smoker and is Review of systems: As per history of present illness and below otherwise all systems reviewed and negative. Past medical history: As per history of present illness and as reviewed below otherwise noncontributory. Surgical history: As per history of present illness and as reviewed below otherwise noncontributory. Social history: No reported history of drug or alcohol abuse. Family history: As per history of present illness and as reviewed below otherwise noncontributory. Physical exam: HEENT: Atraumatic, normocephalic, pupils reactive, negative for conjunctival pallor or scleral icterus, mucous membranes moist, throat clear, neck supple, nontender, trachea midline. Lungs: mild wheezes bilaterally, breath sounds equal bilaterally, chest nontender. Heart: S1S2, regular, negative for clicks, rubs, or JVD. Abdomen: Soft, nondistended, nontender. Negative for masses or hepatosplenomegaly. Negative for costovertebral tenderness. Pelvis: Stable nontender. Genitourinary: Deferred. Rectal: Deferred. Extremities: Atraumatic, negative for cords or calf pain. Neurovascular unremarkable. Neuro: Awake, alert, oriented. Cranial nerves II through XII unremarkable. Cerebellum unremarkable. Motor and sensory unremarkable throughout. Exam nonfocal. Diagnostics: [] Therapeutics: Leeann Gonzáles Impression: Sinusitis Plan: . Treated patient with a DuoNeb as she was mildly wheezy on exam. Also gave very prescription for azithromycin for sinusitis and told her to follow-up with primary care provider. Definitive disposition and diagnosis as appropriate pending reevaluation and review of above. Back and Legs Pain Score (Numeric/FACES): 9 - Related Data Allergies Allergy/AdvReac Type Severity Reaction Status Date / Time clarithromycin [From Biaxin] Allergy Hives Verified 01/24/18 22:49 Iodinated Contrast- Oral and Allergy Difficulty Verified 01/24/18 22:49 IV Dye Breathing [Iodinated Contrast Media - IV Dye] ketorolac Allergy Nausea and Verified 01/24/18 22:49 Vomiting ketorolac tromethamine Allergy Nausea and Verified 01/24/18 22:49 [From Toradol] Vomiting lorazepam [From Ativan] Allergy Change Verified 01/24/18 22:49 Mental Status NSAIDS (Non-Steroidal Allergy Stomach Verified 01/24/18 22:49 Anti-Inflamma Upset tramadol Allergy Nausea and Verified 01/24/18 22:49 Vomiting tramadol HCl [From Ultracet] Allergy Cannot Verified 01/24/18 22:49 Remember Home Meds: Home Meds B12 Injection 1 dose IM ASDIRECTED 07/26/14 [History] Albuterol [IJD: Albuterol HFA] 2 puff IH ASDIRECTED 09/30/17 [History] Dexamethasone 0.5 mg PO DAILY 01/24/18 [History] Fluticasone Propionate [Flonase] 16 gm NS DAILY 01/24/18 [History] Past Medical History - Past Health History Medical/Surgical History: Denies Medical/Surgical History HEENT History: Reports: Impaired Vision, Sinusitis Cardiovascular History: Reports: None Respiratory History: Reports: Asthma, Pneumonia, Recurrent Gastrointestinal History: Reports: Bowel Obstruction, Other (See Below) Other Gastrointestinal History: gastric bypass Genitourinary History: Reports: None [employer]ED[employer]ER History: Reports: Spontaneous Musculoskeletal History: Reports: None Neurological History: Reports: Headaches, Chronic, Other (See Below) Other Neuro History: pseudo tumor cerebri, dystonia Psychiatric History: Reports: Anxiety Endocrine/Metabolic History: Reports: None Hematologic History: Reports: Anemia Immunologic History: Reports: Other (See Below) Other Immunologic History: Dystonia Oncologic (Cancer) History: Reports: None Dermatologic History: Reports: None - Infectious Disease History Infectious Disease History: Reports: Chicken Pox Other Infectious Disease History: childhood - Past Surgical History Head Surgeries/Procedures: Reports: Shunt HEENT Surgical History: Reports: Adenoidectomy, Oral Surgery, Tonsillectomy Cardiovascular Surgical History: Reports: None Respiratory Surgical History: Reports: None GI Surgical History: Reports: None Female Surgical History: Reports: None Neurological Surgical History: Reports: Other (See Below) Other Neurological Surgeries/Procedures: 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 ED EXAM, GENERAL - Physical Exam Exam: See Below Course - Vital Signs Last Recorded V/S: Last Vital Signs Temp 98.5 F 01/24/18 22:46 Pulse 123 H 01/24/18 22:46 Resp 12 01/24/18 22:46 BP 117/82 01/24/18 22:46 Pulse Ox 95 01/24/18 22:46 - Orders/Labs/Meds Orders: Active Orders 24 hr Category Date Time Status RT Aerosol Therapy [RC] ASDIRECTED Care 01/24/18 23:03 Active Meds: Medications Discontinued Medications Generic Name Dose Route Start Last Admin Trade Name Nathanq PRN Reason Stop Dose Admin Albuterol/Ipratropium 3 ml 01/24/18 23:03 01/24/18 23:13 Duoneb 3.0-0.5 Mg/3 Ml NEB 01/24/18 23:04 3 ml ONETIME ONE Administration Ketorolac Tromethamine 60 mg 01/24/18 23:03 01/24/18 23:13 Toradol IM 01/24/18 23:04 60 mg ONETIME ONE Administration Departure - Departure Time of Disposition: 23:24 Disposition: Home, Self-Care 01 Condition: Good Clinical Impression: Sinusitis Qualifiers: Sinusitis location: maxillary Chronicity: acute Recurrence: non-recurrent Qualified Code(s): J01.00 - Acute maxillary sinusitis, unspecified - Discharge Information Referrals: Jhon Wade [Primary Care Provider] - Forms: ED Department Discharge - My Orders Last 24 Hours: My Active Orders 01/24/18 23:03 RT Aerosol Therapy [RC] ASDIRECTED - Assessment/Plan Last 24 Hours: My Active Orders 01/24/18 23:03 RT Aerosol Therapy [RC] ASDIRECTED
[2018-01-24 23:57] VITALS: BP 121/86
== END 2018-01-24 23:58 | disposition home or self-care (01) ==
LOC: MW.ED 22:27
DX: J01.00 Acute maxillary sinusitis, unspecified (principal); Z87.891 Personal history of nicotine dependence; Z79.899 Other long term (current) drug therapy; Z88.6 Allergy status to analgesic agent; Z91.041 Radiographic dye allergy status; Z88.5 Allergy status to narcotic agent; Z88.8 Allergy status to other drugs, medicaments and biological substances
CPT/HCPCS: 96372; 99283; J1885; J7620-GY

== ENCOUNTER 2018-07-18 23:20 | Emergency (ER) | payer MEDICARE, MEDICAID ==
--- NOTE | 2018-07-18 23:22 | EDM.PDOC ---
ED HPI GENERAL MEDICAL PROBLEM - General Stated Complaint: SWELLING AND PAIN IN LEFT KNEE Time Seen by Provider: 07/18/18 23:22 Source of Information: Reports: Patient - History of Present Illness INITIAL COMMENTS - FREE TEXT/NARRATIVE: HISTORY AND PHYSICAL: History of present illness: [] Patient slipped while entering a gas station that have a wet floor, she did not actually fall to the ground but twisted her knee is nonpainful the first day increasing in pain for now she is unable to bear weight rates pain 5 out of 10 nonradiating on examination he is limited exam due to pain hip and ankle are unaffected full range of passive motion of the knee ligaments structures exam is limited due to pain there is medial joint line tenderness no locking no redness warmth or ballooning of the patella no open lesion or bruising entirely limb is neurovascularly intact Review of systems: As per history of present illness and below otherwise all systems reviewed and negative. Past medical history: As per history of present illness and as reviewed below otherwise noncontributory. Surgical history: As per history of present illness and as reviewed below otherwise noncontributory. Social history: No reported history of drug or alcohol abuse. Family history: As per history of present illness and as reviewed below otherwise noncontributory. Physical exam: HEENT: Atraumatic, normocephalic, pupils reactive, negative for conjunctival pallor or scleral icterus, mucous membranes moist, throat clear, neck supple, nontender, trachea midline. Lungs: Clear to auscultation, breath sounds equal bilaterally, chest nontender. Heart: S1S2, regular, negative for clicks, rubs, or JVD. Abdomen: Soft, nondistended, nontender. Negative for masses or hepatosplenomegaly. Negative for costovertebral tenderness. Pelvis: Stable nontender. Genitourinary: Deferred. Rectal: Deferred. Extremities: Atraumatic, negative for cords or calf pain. Neurovascular unremarkable. Left knee as per history of present illness Neuro: Awake, alert, oriented. Cranial nerves II through XII unremarkable. Cerebellum unremarkable. Motor and sensory unremarkable throughout. Exam nonfocal. Diagnostics: []X-ray left knee complete Therapeutics: []Immobilizer crutches nonweightbearing Rest ice ibuprofen Impression: [] left knee injury Definitive disposition and diagnosis as appropriate pending reevaluation and review of above. Left Knee Pain Score (Numeric/FACES): 7 - Related Data Allergies Allergy/AdvReac Type Severity Reaction Status Date / Time clarithromycin [From Biaxin] Allergy Hives Verified 07/18/18 23:30 Iodinated Contrast- Oral and Allergy Difficulty Verified 07/18/18 23:30 IV Dye Breathing [Iodinated Contrast Media - IV Dye] ketorolac Allergy Nausea and Verified 07/18/18 23:30 Vomiting ketorolac tromethamine Allergy Nausea and Verified 07/18/18 23:30 [From Toradol] Vomiting lorazepam [From Ativan] Allergy Change Verified 07/18/18 23:30 Mental Status NSAIDS (Non-Steroidal Allergy Stomach Verified 07/18/18 23:30 Anti-Inflamma Upset tramadol Allergy Nausea and Verified 07/18/18 23:30 Vomiting tramadol HCl [From Ultracet] Allergy Cannot Verified 07/18/18 23:30 Remember Home Meds: Home Meds B12 Injection 1 dose IM ASDIRECTED 07/26/14 [History] Albuterol [IJD: Albuterol HFA] 2 puff IH ASDIRECTED 09/30/17 [History] Fluticasone Propionate [Flonase] 16 gm NS DAILY 01/24/18 [History] Past Medical History - Past Health History Medical/Surgical History: Denies Medical/Surgical History HEENT History: Reports: Impaired Vision, Sinusitis Cardiovascular History: Reports: None Respiratory History: Reports: Asthma, Pneumonia, Recurrent Gastrointestinal History: Reports: Bowel Obstruction, Other (See Below) Other Gastrointestinal History: gastric bypass Genitourinary History: Reports: None 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 Musculoskeletal History: Reports: None Neurological History: Reports: Headaches, Chronic, Other (See Below) Other Neuro History: pseudo tumor cerebri, dystonia Psychiatric History: Reports: Anxiety Endocrine/Metabolic History: Reports: None Hematologic History: Reports: Anemia Immunologic History: Reports: Other (See Below) Other Immunologic History: Dystonia Oncologic (Cancer) History: Reports: None Dermatologic History: Reports: None - Infectious Disease History Infectious Disease History: Reports: Chicken Pox Other Infectious Disease History: childhood - Past Surgical History Head Surgeries/Procedures: Reports: Shunt HEENT Surgical History: Reports: Adenoidectomy, Oral Surgery, Tonsillectomy Cardiovascular Surgical History: Reports: None Respiratory Surgical History: Reports: None GI Surgical History: Reports: None Female Surgical History: Reports: None Neurological Surgical History: Reports: Other (See Below) Other Neurological Surgeries/Procedures: 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, to correct pseudotumor ; since removed Dermatological Surgical History: Reports: None Social & Family History - Family History Family Medical History: Noncontributory - Caffeine Use Caffeine Use: Reports: Soda ED ROS GENERAL - Review of Systems Review Of Systems: See Below ED EXAM, GENERAL - Physical Exam Exam: See Below Course - Vital Signs Last Recorded V/S: Last Vital Signs Temp 96.5 F 07/18/18 23:22 Pulse 85 07/18/18 23:22 Resp 18 07/18/18 23:22 BP 126/90 07/18/18 23:22 Pulse Ox 98 07/18/18 23:22 - Orders/Labs/Meds Orders: Active Orders 24 hr Category Date Time Status Knee 3V Lt [CR] Stat Exams 07/18/18 23:21 Taken Labs: Laboratory Tests 07/18/18 Range/Units 23:40 Urine HCG, Qual NEGATIVE (NEGATIVE) Departure - Departure Time of Disposition: 00:17 Disposition: Home, Self-Care 01 Condition: Good Clinical Impression: Left knee injury - Discharge Information Additional Instructions: Immobilizer crutches nonweightbearing Rest Ice 20 minute intervals 3 times daily 7-10 days Ibuprofen 400 mg 3 times daily 7-10 days Follow-up with orthopedist, call phone number below to schedule appropriate follow-up [facility] [address], [address] [place] [address] my orthopedic The following information is given to patients seen in the emergency department who are being discharged to home. This information is to outline your options for follow-up care. We provide all patients seen in our emergency department with a follow-up referral. The need for follow-up, as well as the timing and circumstances, are variable depending upon the specifics of your emergency department visit. If you don't have a primary care physician on staff, we will provide you with a referral. We always advise you to contact your personal physician following an emergency department visit to inform them of the circumstance of the visit and for follow-up with them and/or the need for any referrals to a consulting specialist. The emergency department will also refer you to a specialist when appropriate. This referral assures that you have the opportunity for follow-up care with a specialist. All of these measure are taken in an effort to provide you with optimal care, which includes your follow-up. Under all circumstances we always encourage you to contact your private physician who remains a resource for coordinating your care. When calling for follow-up care, please make the office aware that this follow-up is from your recent emergency room visit. If for any reason you are refused follow-up, please contact the [facility] emergency department at and asked to speak to the emergency department charge nurse. - My Orders Last 24 Hours: My Active Orders 07/18/18 23:21 Knee 3V Lt [CR] Stat - Assessment/Plan Last 24 Hours: My Active Orders 07/18/18 23:21 Knee 3V Lt [CR] Stat
[2018-07-19 00:46] VITALS: BP 128/89
--- NOTE | 2018-07-19 01:04 | CR ---
Indication: Injury and pain. Technique: Left knee 3 views Comparison: None Findings: Bones: Alignment is normal. No fractures or bone lesions. Joint spaces: No joint effusion. Joint spaces are well maintained. No degenerative changes. Soft tissues: Unremarkable. Impression: No sign of acute injury. Dictated by Manjit Brown MD @ Jul 19 2018 1:02AM Signed by Dr. Manjit Brown @ Jul 19 2018 1:04AM
== END 2018-07-19 00:47 | disposition home or self-care (01) ==
LOC: MW.ED 23:20
DX: S89.92XA Unspecified injury of left lower leg, initial encounter (principal); J45.909 Unspecified asthma, uncomplicated; Z88.1 Allergy status to other antibiotic agents; Z88.5 Allergy status to narcotic agent; Z79.899 Other long term (current) drug therapy; X50.1XXA Overexertion from prolonged static or awkward postures, initial encounter; Z87.891 Personal history of nicotine dependence
CPT/HCPCS: 73562-26-LT; 73562-LT; 81025; 99283

== ENCOUNTER 2019-03-23 10:49 | Emergency (ER) | payer MEDICAID, MEDICARE ==
--- NOTE | 2019-03-23 10:54 | EDM.PDOC ---
ED HPI GENERAL MEDICAL PROBLEM - General Chief Complaint: Respiratory Problem Stated Complaint: COLD,SINUS Time Seen by Provider: 03/23/19 10:51 Source of Information: Reports: Patient History Limitations: Reports: No Limitations - History of Present Illness INITIAL COMMENTS - FREE TEXT/NARRATIVE: HISTORY AND PHYSICAL: History of present illness: Patient is a 33-year-old female presenting to the emergency room for complaints of cold/sinus symptoms x 5 days. Patient stated that on Friday she started having a sore throat, stuffy nose, ear fullness, puffy eyes, and cough. Patient states that her cough is productive with "green/brown" mucus. She states her cough is worse at night. She has been using Mucinex and Robitussin over-the- counter along with Flonase with minimal relief. She states her symptoms have worsened every day. Patient also reports subjective fever, nausea, and pain in her chest from coughing. Patient denies any chills, headache, change in vision, syncope or near syncope. Denies any chest pain, back pain, current shortness of breath. Denies any abdominal pain, vomiting, diarrhea, constipation or dysuria. Has not noted any blood in urine or stool. Patient has been eating and drinking appropriately. Review of systems: As per history of present illness and below otherwise all systems reviewed and negative. Past medical history: As per history of present illness and as reviewed below otherwise noncontributory. Surgical history: As per history of present illness and as reviewed below otherwise noncontributory. Social history: See social history for further information Family history: As per history of present illness and as reviewed below otherwise noncontributory. Physical exam: General: Well-developed and well-nourished 33-year-old female. Alert and oriented. Nontoxic appearing and in no acute distress. Vital signs are stable and have been reviewed by me. HEENT: Atraumatic, normocephalic, pupils equal and reactive bilaterally, negative for conjunctival pallor or scleral icterus, mucous membranes moist, TMs normal bilaterally, posterior oropharynx edematous with cobblestoning, neck supple, nontender, trachea midline. No drooling or trismus noted. No meningeal signs. No hot potato voice noted. Lungs: Clear to auscultation, breath sounds equal bilaterally, chest nontender. Heart: S1S2, regular rate and rhythm without overt murmur Abdomen: Soft, nondistended, nontender. Negative for masses or hepatosplenomegaly. Negative for costovertebral tenderness. Skin: Intact, warm, dry. No lesions or rashes noted. Extremities: Atraumatic, moves all extremities per self without difficulty or deficits, negative for cords or calf pain. Neurovascular unremarkable. Neuro: Awake, alert, oriented. Cranial nerves II through XII unremarkable. Cerebellum unremarkable. Motor and sensory unremarkable throughout. Exam nonfocal. Notes: I did offer her to do a strep screening on her. She declines. She does have a long-standing history of intermittent/chronic sinusitis. We'll treat her with Augmentin. We discussed the need to follow-up with ear nose and throat or her primary care provider. Supportive care measures were reviewed and discussed. Voices understanding and is agreeable to plan of care. Denies any further questions or concerns at this time. Diagnostics: None Therapeutics: None Prescription: Augmentin Impression: Sinusitis Plan: 1. Please use Tylenol and/or Ibuprofen as needed for pain and fever management. 2. Get plenty of Rest. Encourage fluids to prevent dehydration. 3. Please follow up with your primary care provider. Return to the ED as needed as discussed. Definitive disposition and diagnosis as appropriate pending reevaluation and review of above. Throat Pain Score (Numeric/FACES): 3 - Related Data Allergies Allergy/AdvReac Type Severity Reaction Status Date / Time clarithromycin [From Biaxin] Allergy Hives Verified 03/23/19 11:03 Iodinated Contrast Media Allergy Difficulty Verified 03/23/19 11:03 [Iodinated Contrast Media - Breathing IV Dye] ketorolac Allergy Nausea and Verified 03/23/19 11:03 Vomiting ketorolac tromethamine Allergy Nausea and Verified 03/23/19 11:03 [From Toradol] Vomiting lorazepam [From Ativan] Allergy Change Verified 03/23/19 11:03 Mental Status NSAIDS (Non-Steroidal Allergy Stomach Verified 03/23/19 11:03 Anti-Inflamma Upset tramadol Allergy Nausea and Verified 03/23/19 11:03 Vomiting tramadol HCl [From Ultracet] Allergy Cannot Verified 03/23/19 11:03 Remember Home Meds: Home Meds Amoxicillin/Clavulanate K [Augmentin 875-125 MG] 1 tab PO BID 10 Days #20 tablet 03/23/19 [Rx] Past Medical History - Past Health History Medical/Surgical History: Denies Medical/Surgical History HEENT History: Reports: Impaired Vision, Sinusitis Cardiovascular History: Reports: None Respiratory History: Reports: Asthma, Pneumonia, Recurrent Gastrointestinal History: Reports: Bowel Obstruction, Other (See Below) Other Gastrointestinal History: gastric bypass Genitourinary History: Reports: None [employer]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 Musculoskeletal History: Reports: None Neurological History: Reports: Headaches, Chronic, Other (See Below) Other Neuro History: pseudo tumor cerebri, dystonia Psychiatric History: Reports: Anxiety Endocrine/Metabolic History: Reports: None Other Endocrine/Metabolic History: hypoglycemic Hematologic History: Reports: Anemia Immunologic History: Reports: Other (See Below) Other Immunologic History: Dystonia Oncologic (Cancer) History: Reports: None Dermatologic History: Reports: None - Infectious Disease History Infectious Disease History: Reports: Chicken Pox Other Infectious Disease History: childhood - Past Surgical History Head Surgeries/Procedures: Reports: Shunt HEENT Surgical History: Reports: Adenoidectomy, Oral Surgery, Tonsillectomy Cardiovascular Surgical History: Reports: None Respiratory Surgical History: Reports: None GI Surgical History: Reports: None Female Surgical History: Reports: None Neurological Surgical History: Reports: Other (See Below) Other Neurological Surgeries/Procedures: 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 ED EXAM, GENERAL - Physical Exam Exam: See Below (See dictation) Course - Vital Signs Last Recorded V/S: Last Vital Signs Temp 97.3 F 03/23/19 11:04 Pulse 98 03/23/19 11:04 Resp 17 03/23/19 11:04 BP 125/89 03/23/19 11:04 Pulse Ox 98 03/23/19 11:04 Departure - Departure Time of Disposition: :19 Disposition: Home, Self-Care 01 Clinical Impression: Sinusitis Qualifiers: Sinusitis location: unspecified location Chronicity: unspecified Qualified Code (s): J32.9 - Chronic sinusitis, unspecified - Discharge Information Prescriptions: Amoxicillin/Clavulanate K [Augmentin 875-125 MG] 1 tab PO BID 10 Days #20 tablet Instructions: Sinusitis, Adult, [id number] Referrals: Jhon Wade MD [Primary Care Provider] - Forms: ED Department Discharge Additional Instructions: The following information is given to patients seen in the emergency department who are being discharged to home. This information is to outline your options for follow-up care. We provide all patients seen in our emergency department with a follow-up referral. The need for follow-up, as well as the timing and circumstances, are variable depending upon the specifics of your emergency department visit. If you don't have a primary care physician on staff, we will provide you with a referral. We always advise you to contact your personal physician following an emergency department visit to inform them of the circumstance of the visit and for follow-up with them and/or the need for any referrals to a consulting specialist. The emergency department will also refer you to a specialist when appropriate. This referral assures that you have the opportunity for follow-up care with a specialist. All of these measure are taken in an effort to provide you with optimal care, which includes your follow-up. Under all circumstances we always encourage you to contact your private physician who remains a resource for coordinating your care. When calling for follow-up care, please make the office aware that this follow-up is from your recent emergency room visit. If for any reason you are refused follow-up, please contact the [facility] Emergency Department at and asked to speak to the emergency department charge nurse. [facility] [address] [place] [id number] [facility] [address] [place] [id number] 1. Please use Tylenol and/or Ibuprofen as needed for pain and fever management. 2. Get plenty of Rest. Encourage fluids to prevent dehydration. 3. Please follow up with your primary care provider. Return to the ED as needed as discussed.
[2019-03-23 11:05] VITALS: PULSE 98
[2019-03-23 11:47] VITALS: BP 125/77
== END 2019-03-23 11:47 | disposition home or self-care (01) ==
LOC: MW.ED 10:49
DX: J32.9 Chronic sinusitis, unspecified (principal); J45.909 Unspecified asthma, uncomplicated; Z88.1 Allergy status to other antibiotic agents; Z91.041 Radiographic dye allergy status; Z88.6 Allergy status to analgesic agent; Z88.8 Allergy status to other drugs, medicaments and biological substances; Z88.5 Allergy status to narcotic agent
CPT/HCPCS: 99283

== ENCOUNTER 2019-05-19 14:57 | Emergency (ER) | payer MEDICARE ==
--- NOTE | 2019-05-19 15:34 | EDM.PDOC ---
ED HPI GENERAL MEDICAL PROBLEM - General Chief Complaint: Respiratory Problem Stated Complaint: CHEST CONGESTION Time Seen by Provider: 05/19/19 15:01 Source of Information: Reports: Patient History Limitations: Reports: No Limitations - History of Present Illness INITIAL COMMENTS - FREE TEXT/NARRATIVE: HISTORY AND PHYSICAL: History of present illness: Patient is a 33-year-old female presents to the ED today with concern of cough, and sore throat over the past 2-3 days. Patient states she's been taking NyQuil to help her sleep at night with some relief of symptoms. Patient states she had a history of asthma and shortness she was little but has not had any issues with stents but does have an albuterol inhaler available to her. Patient denies any other symptoms or concerns. Patient denies fever, chills, chest pain, shortness of breath. Denies headache, neck stiff ness, change in vision, syncope, or near syncope. Denies nausea, vomiting, abdominal pain, diarrhea, constipation, or dysuria. Has not noted any blood in urine or stool. Patient has been eating and drinking appropriately. Review of systems: As per history of present illness and below otherwise all systems reviewed and negative. Past medical history: As per history of present illness and as reviewed below otherwise noncontributory. Surgical history: As per history of present illness and as reviewed below otherwise noncontributory. Social history: See social history for further information Family history: As per history of present illness and as reviewed below otherwise noncontributory. Physical exam: General: Patient is alert, oriented, and in no acute distress. Patient sitting comfortably on exam table. HEENT: Atraumatic, normocephalic, pupils equal and reactive bilaterally, negative for conjunctival pallor or scleral icterus, mucous membranes moist, TMs normal bilaterally, throat clear, neck supple, nontender, trachea midline. No drooling or trismus noted. No meningeal signs. No hot potato voice noted. Lungs: Clear to auscultation, breath sounds equal bilaterally, chest nontender. Dry cough on exam Heart: S1S2, regular rate and rhythm without overt murmur Abdomen: Soft, nondistended, nontender. Negative for masses or hepatosplenomegaly. Negative for costovertebral tenderness. Pelvis: Stable nontender. Genitourinary: Deferred. Rectal: Deferred. Skin: Intact, warm, dry. No lesions or rashes noted. Extremities: Atraumatic, negative for cords or calf pain. Neurovascular unremarkable. Neuro: Awake, alert, oriented. Cranial nerves II through XII unremarkable. Cerebellum unremarkable. Motor and sensory unremarkable throughout. Exam nonfocal. Notes: Discussed the importance for follow-up with a primary care provider. Voices understanding and is agreeable to plan of care. Denies any further questions or concerns at this time. Diagnostics: CBC, CMP, CXR, Influenza, Strep Therapeutics: None Prescription: (Patient declines all steroid packs and has albuterol inhaler available to her) , Phenergan with codeine Impression: Tracheobronchitis Plan: 1. Use your albuterol inhaler they have prescribed to you as needed for cough as directed. 2. Follow-up with your primary care provider as discussed. Return to the ED as needed and as discussed. Definitive disposition and diagnosis as appropriate pending reevaluation and review of above. - Related Data Allergies Allergy/AdvReac Type Severity Reaction Status Date / Time clarithromycin [From Biaxin] Allergy Hives Verified 05/19/19 15:17 Iodinated Contrast Media Allergy Difficulty Verified 05/19/19 15:17 [Iodinated Contrast Media - Breathing IV Dye] ketorolac Allergy Nausea and Verified 05/19/19 15:17 Vomiting ketorolac tromethamine Allergy Nausea and Verified 05/19/19 15:17 [From Toradol] Vomiting lorazepam [From Ativan] Allergy Change Verified 05/19/19 15:17 Mental Status NSAIDS (Non-Steroidal Allergy Stomach Verified 05/19/19 15:17 Anti-Inflamma Upset tramadol Allergy Nausea and Verified 05/19/19 15:17 Vomiting tramadol HCl [From Ultracet] Allergy Cannot Verified 05/19/19 15:17 Remember Home Meds: Home Meds Codeine/Promethazine [Phenergan with Codeine] 5 ml PO Q6HR PRN #1 bottle [Rx] Past Medical History - Past Health History Medical/Surgical History: Denies Medical/Surgical History HEENT History: Reports: Impaired Vision, Sinusitis Cardiovascular History: Reports: None Respiratory History: Reports: Asthma, Pneumonia, Recurrent Gastrointestinal History: Reports: Bowel Obstruction, Other (See Below) Other Gastrointestinal History: gastric bypass Genitourinary History: Reports: None 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 Musculoskeletal History: Reports: None Neurological History: Reports: Headaches, Chronic, Other (See Below) Other Neuro History: pseudo tumor cerebri, dystonia Psychiatric History: Reports: Anxiety Endocrine/Metabolic History: Reports: None Other Endocrine/Metabolic History: hypoglycemic Hematologic History: Reports: Anemia Immunologic History: Reports: Other (See Below) Other Immunologic History: Dystonia Oncologic (Cancer) History: Reports: None Dermatologic History: Reports: None - Infectious Disease History Infectious Disease History: Reports: Chicken Pox Other Infectious Disease History: childhood - Past Surgical History Head Surgeries/Procedures: Reports: Shunt HEENT Surgical History: Reports: Adenoidectomy, Oral Surgery, Tonsillectomy Cardiovascular Surgical History: Reports: None Respiratory Surgical History: Reports: None GI Surgical History: Reports: None Female Surgical History: Reports: None Neurological Surgical History: Reports: Other (See Below) Other Neurological Surgeries/Procedures: 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 ED EXAM, GENERAL - Physical Exam Exam: See Below (see dictation) Course - Vital Signs Last Recorded V/S: Last Vital Signs Temp 98.7 F 05/19/19 15:18 Pulse 114 H 05/19/19 15:18 Resp 18 05/19/19 15:18 BP 118/85 05/19/19 15:18 Pulse Ox 97 05/19/19 15:18 - Orders/Labs/Meds Orders: Active Orders 24 hr Category Date Time Status CULTURE STREP A CONFIRMATION [RM] Stat Lab 05/19/19 15:30 Results STREP SCRN A RAPID W CULT CONF [RM] Stat Lab 05/19/19 15:30 Results UA RFX ARRON AND CULT IF INDIC [URIN] Stat Lab 05/19/19 15:34 Ordered Labs: Laboratory Tests 05/19/19 05/19/19 05/19/19 Range/Units 15:52 15:52 15:52 WBC 7.48 (4.0-11.0) K/uL RBC 4.72 (4.30-5.90) M/uL Hgb 11.0 L (12.0-16.0) g/dL Hct 35.9 L (36.0-46.0) % MCV 76.1 L (80.0-98.0) fL MCH 23.3 L (27.0-32.0) pg MCHC 30.6 L (31.0-37.0) g/dL RDW Std Deviation 50.7 (28.0-62.0) fl RDW Coeff of Saúl 18 H (11.0-15.0) % Plt Count 478 H (150-400) K/uL MPV 10.50 (7.40-12.00) fL Neut % (Auto) 51.1 (48.0-80.0) % Lymph % (Auto) 35.6 (16.0-40.0) % Kidder % (Auto) 7.6 (0.0-15.0) % Eos % (Auto) 4.5 (0.0-7.0) % Baso % (Auto) 1.2 (0.0-1.5) % Neut # (Auto) 3.8 (1.4-5.7) K/uL Lymph # (Auto) 2.7 H (0.6-2.4) K/uL Kidder # (Auto) 0.6 (0.0-0.8) K/uL Eos # (Auto) 0.3 (0.0-0.7) K/uL Baso # (Auto) 0.1 (0.0-0.1) K/uL Nucleated RBC % 0.0 /100WBC Nucleated RBCs # 0 K/uL Sodium 139 (136-145) mmol/L Potassium 3.7 (3.5-5.1) mmol/L Chloride 106 (98-107) mmol/L Carbon Dioxide 19.5 L (21.0-32.0) mmol/L BUN 5 L (7.0-18.0) mg/dL Creatinine 0.7 (0.6-1.0) mg/dL Est Cr Clr Drug Dosing 104.78 mL/min Estimated GFR (MDRD) > 60.0 ml/min Glucose 100 (74-106) mg/dL Calcium 8.8 (8.5-10.1) mg/dL Total Bilirubin 0.3 (0.2-1.0) mg/dL AST 20 (15-37) IU/L ALT 18 (14-63) IU/L Alkaline Phosphatase 76 (46-116) U/L Total Protein 7.9 (6.4-8.2) g/dL Albumin 3.5 (3.4-5.0) g/dL Globulin 4.4 H (2.6-4.0) g/dL Albumin/Globulin Ratio 0.8 L (0.9-1.6) HCG, Qual NEGATIVE (NEG) Departure - Departure Time of Disposition: 16:44 Disposition: Home, Self-Care 01 Clinical Impression: Tracheobronchitis - Discharge Information Prescriptions: Codeine/Promethazine [Phenergan with Codeine] 5 ml PO Q6HR PRN #1 bottle PRN Reason: Cough Referrals: Jhon Wade MD [Primary Care Provider] - Forms: ED Department Discharge Additional Instructions: The following information is given to patients seen in the emergency department who are being discharged to home. This information is to outline your options for follow-up care. We provide all patients seen in our emergency department with a follow-up referral. The need for follow-up, as well as the timing and circumstances, are variable depending upon the specifics of your emergency department visit. If you don't have a primary care physician on staff, we will provide you with a referral. We always advise you to contact your personal physician following an emergency department visit to inform them of the circumstance of the visit and for follow-up with them and/or the need for any referrals to a consulting specialist. The emergency department will also refer you to a specialist when appropriate. This referral assures that you have the opportunity for follow-up care with a specialist. All of these measure are taken in an effort to provide you with optimal care, which includes your follow-up. Under all circumstances we always encourage you to contact your private physician who remains a resource for coordinating your care. When calling for follow-up care, please make the office aware that this follow-up is from your recent emergency room visit. If for any reason you are refused follow-up, please contact the [facility] Emergency Department at and asked to speak to the emergency department charge nurse. [facility] [address] [place] [address] [facility] [address] [place] [address] 1. Use your albuterol inhaler they have prescribed to you as needed for cough as directed. 2. Follow-up with your primary care provider as discussed. Return to the ED as needed and as discussed. - My Orders Last 24 Hours: My Active Orders 05/19/19 15:30 CULTURE STREP A CONFIRMATION [RM] Stat STREP SCRN A RAPID W CULT CONF [RM] Stat 05/19/19 15:34 UA RFX ARRON AND CULT IF INDIC [URIN] Stat - Assessment/Plan Last 24 Hours: My Active Orders 05/19/19 15:30 CULTURE STREP A CONFIRMATION [RM] Stat STREP SCRN A RAPID W CULT CONF [RM] Stat 05/19/19 15:34 UA RFX ARRON AND CULT IF INDIC [URIN] Stat
[2019-05-19 16:22] LABS: BLOOD UREA NITROGEN,BUN 5 mg/dL (7.0-18.0); CARBON DIOXIDE,CO2 19.5 mmol/L (21.0-32.0); CHLORIDE,CL 106 mmol/L (98-107); GLUCOSE RANDOM 100 mg/dL (74-106); POTASSIUM,K 3.7 mmol/L (3.5-5.1); SODIUM,NA 139 mmol/L (136-145)
--- NOTE | 2019-05-19 16:27 | CR ---
EXAM DATE: 05/19/19 PATIENT'S AGE: 33 Chest: Two views of the chest were obtained. Comparison: Previous chest x-ray of 09/30/17. Heart size and mediastinum are within normal limits. Lungs are clear. Bony structures are unremarkable. Surgical clips are noted within the upper abdomen. Impression: 1. Nothing acute is appreciated on two view chest x-ray. Diagnostic code #1 This report was dictated in [place] Standard Time Report Signed by Proxy. VANIA
[2019-05-19 17:15] VITALS: BP 126/85; PULSE 104
== END 2019-05-19 17:16 | disposition home or self-care (01) ==
LOC: MW.ED 14:57
DX: J40 Bronchitis, not specified as acute or chronic (principal); Z88.1 Allergy status to other antibiotic agents; Z91.041 Radiographic dye allergy status; Z88.8 Allergy status to other drugs, medicaments and biological substances
CPT/HCPCS: 36415; 71046; 71046-26; 80053; 84703; 85025; 87081; 87804; 87880-QW; 99285-25

== ENCOUNTER 2019-05-26 12:53 | Emergency (ER) | payer MEDICAID, MEDICARE ==
[2019-05-26] MEDS ORDERED: Sodium Chloride 0.9% 10 ML Syringe FLUSH PRN (13:12)
[2019-05-26] MEDS ORDERED: Sodium Chloride 0.9% 2.5 ML Syringe FLUSH PRN (13:12)
[2019-05-26] MEDS ORDERED: Sodium Chloride 0.9% 1,000 ML IV ONE (13:12)
--- NOTE | 2019-05-26 13:12 | EDM.PDOC ---
ED HPI GENERAL MEDICAL PROBLEM - General Chief Complaint: General Stated Complaint: LIGHT HEADED Time Seen by Provider: 05/26/19 13:12 Source of Information: Reports: Patient History Limitations: Reports: No Limitations - History of Present Illness INITIAL COMMENTS - FREE TEXT/NARRATIVE: HISTORY AND PHYSICAL: History of present illness: Patient is a 33-year-old female presents to the ED with complaint of syncopal episode at work. She states she is being treated for bronchitis with inhaler and codeine cough syrup. She thinks she may be dehydrated as she has not been drinking a lot of fluids and has had diarrhea. She has been off work the past week and today was her first day back. She reports on and off this morning she would get tunnel vision and feeling light headed. She reports just prior to arrival to the ED she was walking when everything went black and she passed out. She states she thinks she may have hit her head on a table on the way down. She states she has a slight headache at this time. She denies vomiting, chest pain, palpitations, shortness of breath. Review of systems: As per history of present illness and below otherwise all systems reviewed and negative. Past medical history: As per history of present illness and as reviewed below otherwise noncontributory. Surgical history: As per history of present illness and as reviewed below otherwise noncontributory. Social history: No reported history of drug or alcohol abuse. Family history: As per history of present illness and as reviewed below otherwise noncontributory. Physical exam: General: Patient sitting comfortably in no acute distress and nontoxic appearing HEENT: Atraumatic, normocephalic, pupils reactive, negative for conjunctival pallor or scleral icterus, mucous membranes moist, throat clear, neck supple, nontender, trachea midline. No meningeal signs. Lungs: Clear to auscultation, breath sounds equal bilaterally, chest nontender. Heart: S1S2, regular, negative for clicks, rubs, or overt murmur. Abdomen: Soft, nondistended, nontender. Negative for masses or hepatosplenomegaly. Negative for costovertebral tenderness. No rigidity, rebound , guarding. Pelvis: Stable nontender. Genitourinary: Deferred. Rectal: Deferred. Extremities: Atraumatic, negative for cords or calf pain. Neurovascular unremarkable. Neuro: Awake, alert, oriented. Cranial nerves II through XII unremarkable. Cerebellum unremarkable. Motor and sensory unremarkable throughout. Exam nonfocal. Notes: Diagnostics: CBC, CMP, UA, urine hcg, orthostatic vitals, EKG Therapeutics: 1L NS IV Prescriptions: Impression: Vasovagal syncope Definitive disposition and diagnosis as appropriate pending reevaluation and review of above. head Pain Score (Numeric/FACES): 4 - Related Data Allergies Allergy/AdvReac Type Severity Reaction Status Date / Time clarithromycin [From Biaxin] Allergy Hives Verified 05/26/19 13:02 Iodinated Contrast Media Allergy Difficulty Verified 05/26/19 13:02 [Iodinated Contrast Media - Breathing IV Dye] ketorolac Allergy Nausea and Verified 05/26/19 13:02 Vomiting ketorolac tromethamine Allergy Nausea and Verified 05/26/19 13:02 [From Toradol] Vomiting lorazepam [From Ativan] Allergy Change Verified 05/26/19 13:02 Mental Status NSAIDS (Non-Steroidal Allergy Stomach Verified 05/26/19 13:02 Anti-Inflamma Upset tramadol Allergy Nausea and Verified 05/26/19 13:02 Vomiting tramadol HCl [From Ultracet] Allergy Cannot Verified 05/26/19 13:02 Remember Home Meds: Home Meds Codeine/Promethazine [Phenergan with Codeine] 5 ml PO Q6HR PRN #1 bottle [Rx] Past Medical History - Past Health History Medical/Surgical History: Denies Medical/Surgical History HEENT History: Reports: Impaired Vision, Sinusitis Cardiovascular History: Reports: None Respiratory History: Reports: Asthma, Pneumonia, Recurrent Gastrointestinal History: Reports: Bowel Obstruction, Other (See Below) Other Gastrointestinal History: gastric bypass Genitourinary History: Reports: None 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 Musculoskeletal History: Reports: None Neurological History: Reports: Headaches, Chronic, Other (See Below) Other Neuro History: pseudo tumor cerebri, dystonia Psychiatric History: Reports: Anxiety Endocrine/Metabolic History: Reports: None Other Endocrine/Metabolic History: hypoglycemic Hematologic History: Reports: Anemia Immunologic History: Reports: Other (See Below) Other Immunologic History: Dystonia Oncologic (Cancer) History: Reports: None Dermatologic History: Reports: None - Infectious Disease History Infectious Disease History: Reports: Chicken Pox Other Infectious Disease History: childhood - Past Surgical History Head Surgeries/Procedures: Reports: Shunt HEENT Surgical History: Reports: Adenoidectomy, Oral Surgery, Tonsillectomy Cardiovascular Surgical History: Reports: None Respiratory Surgical History: Reports: None GI Surgical History: Reports: None Female Surgical History: Reports: None Neurological Surgical History: Reports: Other (See Below) Other Neurological Surgeries/Procedures: 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 ED EXAM, GENERAL - Physical Exam Exam: See Below (see dictation) Course - Vital Signs Last Recorded V/S: Last Vital Signs Temp 96.0 F 05/26/19 13:01 Pulse 88 05/26/19 13:01 Resp 16 05/26/19 13:01 BP 96/60 05/26/19 13:01 Pulse Ox 99 05/26/19 13:01 Orthostatic Blood Pressure [ 97/59 Standing] Orthostatic Blood Pressure [ 105/65 Sitting] Orthostatic Blood Pressure [ 97/47 Supine] - Orders/Labs/Meds Orders: Active Orders 24 hr Category Date Time Status EKG Documentation Completion [RC] STAT Care 05/26/19 13:11 Active Orthostatic Vital Signs [RC] ASDIRECTED Care 05/26/19 13:35 Active Sodium Chloride 0.9% [Saline Flush] Med 05/26/19 13:12 Active 10 ml FLUSH ASDIRECTED PRN Sodium Chloride 0.9% [Saline Flush] Med 05/26/19 13:12 Active 2.5 ml FLUSH ASDIRECTED PRN Saline Lock Insert [OM.PC] Stat Oth 05/26/19 13:11 Ordered Medication Orders Sodium Chloride (Saline Flush) 10 ml FLUSH ASDIRECTED PRN PRN Reason: Keep Vein Open Last Admin: 05/26/19 13:30 Dose: 10 ml Sodium Chloride (Saline Flush) 2.5 ml FLUSH ASDIRECTED PRN PRN Reason: Keep Vein Open Last Admin: 05/26/19 13:30 Dose: 2.5 ml Labs: Laboratory Tests 1205/26/19 05/26/19 Range/Units 13:20 13:20 13:59 WBC 9.22 (4.0-11.0) K/uL RBC 4.65 (4.30-5.90) M/uL Hgb 11.0 L (12.0-16.0) g/dL Hct 35.7 L (36.0-46.0) % MCV 76.8 L (80.0-98.0) fL MCH 23.7 L (27.0-32.0) pg MCHC 30.8 L (31.0-37.0) g/dL RDW Std Deviation 50.9 (28.0-62.0) fl RDW Coeff of Saúl 18 H (11.0-15.0) % Plt Count 459 H (150-400) K/uL MPV 10.30 (7.40-12.00) fL Neut % (Auto) 75.6 (48.0-80.0) % Lymph % (Auto) 17.9 (16.0-40.0) % [place] % (Auto) 5.2 (0.0-15.0) % Eos % (Auto) 0.5 (0.0-7.0) % Baso % (Auto) 0.8 (0.0-1.5) % Neut # (Auto) 7.0 H (1.4-5.7) K/uL Lymph # (Auto) 1.7 (0.6-2.4) K/uL [place] # (Auto) 0.5 (0.0-0.8) K/uL Eos # (Auto) 0.1 (0.0-0.7) K/uL Baso # (Auto) 0.1 (0.0-0.1) K/uL Nucleated RBC % 0.0 /100WBC Nucleated RBCs # 0 K/uL Sodium 142 (136-145) mmol/L Potassium 3.6 (3.5-5.1) mmol/L Chloride 105 (98-107) mmol/L Carbon Dioxide 24.2 (21.0-32.0) mmol/L BUN 8 (7.0-18.0) mg/dL Creatinine 1.0 (0.6-1.0) mg/dL Est Cr Clr Drug Dosing 73.35 mL/min Estimated GFR (MDRD) > 60.0 ml/min Glucose 108 H (74-106) mg/dL Calcium 8.9 (8.5-10.1) mg/dL Total Bilirubin 0.3 (0.2-1.0) mg/dL AST 29 (15-37) IU/L ALT 22 (14-63) IU/L Alkaline Phosphatase 69 (46-116) U/L Troponin I < 0.050 (0.000-0.056) ng/mL Total Protein 7.8 (6.4-8.2) g/dL Albumin 3.8 (3.4-5.0) g/dL Globulin 4.0 (2.6-4.0) g/dL Albumin/Globulin Ratio 0.9 (0.9-1.6) Urine Color YELLOW Urine Appearance SLT CLOUDY Urine pH 6.0 (5.0-8.0) Ur Specific [place] >= 1.030 (1.001-1.035) Urine Protein 30 H (NEGATIVE) mg/dL Urine Glucose (UA) NEGATIVE (NEGATIVE) mg/dL Urine Ketones TRACE H (NEGATIVE) mg/dL Urine Occult Blood NEGATIVE (NEGATIVE) Urine Nitrite NEGATIVE (NEGATIVE) Urine Bilirubin SMALL H (NEGATIVE) Urine Urobilinogen 1.0 (<2.0) EU/dL Ur Leukocyte Esterase NEGATIVE (NEGATIVE) Urine RBC 0-3 (0-2/HPF) Urine WBC 4-8 (0-5/HPF) Ur Epithelial Cells FEW (NONE-FEW) Amorphous Sediment FEW (NEGATIVE) Urine Bacteria FEW (NEGATIVE) Urine Mucus LIGHT (NONE-MOD) Urine HCG, Qual (NEGATIVE) 05/26/19 Range/Units 13:59 WBC (4.0-11.0) K/uL RBC (4.30-5.90) M/uL Hgb (12.0-16.0) g/dL Hct (36.0-46.0) % MCV (80.0-98.0) fL MCH (27.0-32.0) pg MCHC (31.0-37.0) g/dL RDW Std Deviation (28.0-62.0) fl RDW Coeff of Saúl (11.0-15.0) % Plt Count (150-400) K/uL MPV (7.40-12.00) fL Neut % (Auto) (48.0-80.0) % Lymph % (Auto) (16.0-40.0) % [place] % (Auto) (0.0-15.0) % Eos % (Auto) (0.0-7.0) % Baso % (Auto) (0.0-1.5) % Neut # (Auto) (1.4-5.7) K/uL Lymph # (Auto) (0.6-2.4) K/uL [place] # (Auto) (0.0-0.8) K/uL Eos # (Auto) (0.0-0.7) K/uL Baso # (Auto) (0.0-0.1) K/uL Nucleated RBC % /100WBC Nucleated RBCs # K/uL Sodium (136-145) mmol/L Potassium (3.5-5.1) mmol/L Chloride (98-107) mmol/L Carbon Dioxide (21.0-32.0) mmol/L BUN (7.0-18.0) mg/dL Creatinine (0.6-1.0) mg/dL Est Cr Clr Drug Dosing mL/min Estimated GFR (MDRD) ml/min Glucose (74-106) mg/dL Calcium (8.5-10.1) mg/dL Total Bilirubin (0.2-1.0) mg/dL AST (15-37) IU/L ALT (14-63) IU/L Alkaline Phosphatase (46-116) U/L Troponin I (0.000-0.056) ng/mL Total Protein (6.4-8.2) g/dL Albumin (3.4-5.0) g/dL Globulin (2.6-4.0) g/dL Albumin/Globulin Ratio (0.9-1.6) Urine Color Urine Appearance Urine pH (5.0-8.0) Ur Specific [place] (1.001-1.035) Urine Protein (NEGATIVE) mg/dL Urine Glucose (UA) (NEGATIVE) mg/dL Urine Ketones (NEGATIVE) mg/dL Urine Occult Blood (NEGATIVE) Urine Nitrite (NEGATIVE) Urine Bilirubin (NEGATIVE) Urine Urobilinogen (<2.0) EU/dL Ur Leukocyte Esterase (NEGATIVE) Urine RBC (0-2/HPF) Urine WBC (0-5/HPF) Ur Epithelial Cells (NONE-FEW) Amorphous Sediment (NEGATIVE) Urine Bacteria (NEGATIVE) Urine Mucus (NONE-MOD) Urine HCG, Qual NEGATIVE (NEGATIVE) Meds: Medications Generic Name Dose Route Start Last Admin Trade Name Freq PRN Reason Stop Dose Admin Sodium Chloride 10 ml 05/26/19 13:12 05/26/19 13:30 Saline Flush FLUSH 10 ml ASDIRECTED PRN Administration Keep Vein Open Sodium Chloride 2.5 ml 05/26/19 13:12 05/26/19 13:30 Saline Flush FLUSH 2.5 ml ASDIRECTED PRN Administration Keep Vein Open Discontinued Medications Generic Name Dose Route Start Last Admin Trade Name Freq PRN Reason Stop Dose Admin Sodium Chloride 1,000 mls @ 999 mls/hr 05/26/19 13:12 05/26/19 13:30 Normal Saline IV 05/26/19 14:12 999 mls/hr STAT ONE Administration Departure - Departure Time of Disposition: 14:37 Disposition: Home, Self-Care 01 Condition: Good Clinical Impression: Vasovagal syncope - Discharge Information Referrals: PCP,Not In Area [Primary Care Provider] - Forms: ED Department Discharge Additional Instructions: The following information is given to patients seen in the emergency department who are being discharged to home. This information is to outline your options for follow-up care. We provide all patients seen in our emergency department with a follow-up referral. The need for follow-up, as well as the timing and circumstances, are variable depending upon the specifics of your emergency department visit. If you don't have a primary care physician on staff, we will provide you with a referral. We always advise you to contact your personal physician following an emergency department visit to inform them of the circumstance of the visit and for follow-up with them and/or the need for any referrals to a consulting specialist. The emergency department will also refer you to a specialist when appropriate. This referral assures that you have the opportunity for follow-up care with a specialist. All of these measure are taken in an effort to provide you with optimal care, which includes your follow-up. Under all circumstances we always encourage you to contact your private physician who remains a resource for coordinating your care. When calling for follow-up care, please make the office aware that this follow-up is from your recent emergency room visit. If for any reason you are refused follow-up, please contact the [facility] Emergency Department at and asked to speak to the emergency department charge nurse. [facility] [address] [place] [address] [address] Drink plenty of fluids as instructed Follow up with primary care provider return to ED as needed as discussed Sepsis Event Note - Evaluation Sepsis Screening Result: No Definite Risk - Focused Exam Vital Signs: Vital Signs Temp Pulse Resp BP Pulse Ox 05/26/19 13:01 96.0 F 88 16 96/60 99 Date Exam was Performed: 05/26/19 Time Exam was Performed: 14:37 - My Orders Last 24 Hours: My Active Orders 05/26/19 13:11 EKG Documentation Completion [RC] STAT Saline Lock Insert [OM.PC] Stat 05/26/19 13:12 Sodium Chloride 0.9% [Saline Flush] 10 ml FLUSH ASDIRECTED PRN Sodium Chloride 0.9% [Saline Flush] 2.5 ml FLUSH ASDIRECTED PRN 05/26/19 13:35 Orthostatic Vital Signs [RC] ASDIRECTED - Assessment/Plan Last 24 Hours: My Active Orders 05/26/19 13:11 EKG Documentation Completion [RC] STAT Saline Lock Insert [OM.PC] Stat 05/26/19 13:12 Sodium Chloride 0.9% [Saline Flush] 10 ml FLUSH ASDIRECTED PRN Sodium Chloride 0.9% [Saline Flush] 2.5 ml FLUSH ASDIRECTED PRN 05/26/19 13:35 Orthostatic Vital Signs [RC] ASDIRECTED
[2019-05-26 14:16] LABS: BLOOD UREA NITROGEN,BUN 8 mg/dL (7.0-18.0); CARBON DIOXIDE,CO2 24.2 mmol/L (21.0-32.0); CHLORIDE,CL 105 mmol/L (98-107); GLUCOSE RANDOM 108 mg/dL (74-106); POTASSIUM,K 3.6 mmol/L (3.5-5.1); SODIUM,NA 142 mmol/L (136-145)
[2019-05-26 14:59] VITALS: BP 104/62; PULSE 81
== END 2019-05-26 14:59 | disposition home or self-care (01) ==
LOC: MW.ED 12:53
DX: R55 Syncope and collapse (principal); Z88.5 Allergy status to narcotic agent; Z88.8 Allergy status to other drugs, medicaments and biological substances; Z88.6 Allergy status to analgesic agent; Z88.1 Allergy status to other antibiotic agents; Z91.041 Radiographic dye allergy status
CPT/HCPCS: 36415; 80053; 81001; 81025; 84484; 85025; 93005; 96360; 99284; J7030; 99283

== ENCOUNTER 2019-05-28 17:06 | Emergency (ER) | payer MEDICARE ==
[2019-05-28 17:31] VITALS: BP 114/75; PULSE 90
--- NOTE | 2019-05-28 17:32 | EDM.PDOC ---
ED HPI GENERAL MEDICAL PROBLEM - General Stated Complaint: LEFT ARM INJURY Time Seen by Provider: 05/28/19 17:14 Source of Information: Reports: Patient History Limitations: Reports: No Limitations - History of Present Illness INITIAL COMMENTS - FREE TEXT/NARRATIVE: HISTORY AND PHYSICAL: History of present illness: Patient is a 33-year-old female who presents to the ED today with concern of left shoulder injury that occurred on Friday after a fall. Patient states after the fall she was initially evaluated in the ED and did not have shoulder pain at that time. Patient states when she woke up the next morning her left shoulder felt "stiff." Patient denies any new trauma or injury to the shoulder. Patient denies any other recent falls or any other symptoms or concerns. Patient denies fever, chills, chest pain, shortness of breath, or cough. Denies headache, neck stiff ness, change in vision, syncope, or near syncope. Denies nausea, vomiting, abdominal pain, diarrhea, constipation, or dysuria. Has not noted any blood in urine or stool. Patient has been eating and drinking appropriately. Review of systems: As per history of present illness and below otherwise all systems reviewed and negative. Past medical history: As per history of present illness and as reviewed below otherwise noncontributory. Surgical history: As per history of present illness and as reviewed below otherwise noncontributory. Social history: See social history for further information Family history: As per history of present illness and as reviewed below otherwise noncontributory. Physical exam: General: Patient is alert, oriented, and in no acute distress. Patient sitting comfortably on exam table. HEENT: Atraumatic, normocephalic, pupils equal and reactive bilaterally, negative for conjunctival pallor or scleral icterus, mucous membranes moist, TMs normal bilaterally, throat clear, neck supple, nontender, trachea midline. No drooling or trismus noted. No meningeal signs. No hot potato voice noted. Lungs: Clear to auscultation, breath sounds equal bilaterally, chest nontender. Heart: S1S2, regular rate and rhythm without overt murmur Abdomen: Soft, nondistended, nontender. Negative for masses or hepatosplenomegaly. Negative for costovertebral tenderness. Pelvis: Stable nontender. Genitourinary: Deferred. Rectal: Deferred. Skin: Intact, warm, dry. No lesions or rashes noted. Extremities: Atraumatic, negative for cords or calf pain. Neurovascular unremarkable. No obvious bony of the complete left upper extremity. Radial pulses grossly intact the left upper extremity with capillary refill less than 2 seconds. Patient does have full range of motion of the left elbow wrist and digits but does have limited range of motion of the left shoulder due to pain and discomfort. Neuro: Awake, alert, oriented. Cranial nerves II through XII unremarkable. Cerebellum unremarkable. Motor and sensory unremarkable throughout. Exam nonfocal. Notes: Discussed the importance for follow-up with an orthopedic provider. Voices understanding and is agreeable to plan of care. Denies any further questions or concerns at this time. Diagnostics: Shoulder XR Therapeutics: Shoulder sling Prescription: None Impression: Left shoulder pain Plan: 1. Rest, ice, elevate the affected extremity. You can apply ice 15 minutes on, 15 minutes off. 2. Tylenol as directed for pain management or discomfort. 3. Follow up with the Orthopedic provider as discussed. Return to the ED as needed and as discussed. Definitive disposition and diagnosis as appropriate pending reevaluation and review of above. left shoulder Pain Score (Numeric/FACES): 5 - Related Data Allergies Allergy/AdvReac Type Severity Reaction Status Date / Time clarithromycin [From Biaxin] Allergy Hives Verified 05/28/19 17:31 Iodinated Contrast Media Allergy Difficulty Verified 05/28/19 17:31 [Iodinated Contrast Media - Breathing IV Dye] ketorolac Allergy Nausea and Verified 05/28/19 17:31 Vomiting ketorolac tromethamine Allergy Nausea and Verified 05/28/19 17:31 [From Toradol] Vomiting lorazepam [From Ativan] Allergy Change Verified 05/28/19 17:31 Mental Status NSAIDS (Non-Steroidal Allergy Stomach Verified 05/28/19 17:31 Anti-Inflamma Upset tramadol Allergy Nausea and Verified 05/28/19 17:31 Vomiting tramadol HCl [From Ultracet] Allergy Cannot Verified 05/28/19 17:31 Remember Home Meds: Home Meds . 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 Musculoskeletal History: Reports: None Neurological History: Reports: Headaches, Chronic, Other (See Below) Other Neuro History: pseudo tumor cerebri, dystonia Psychiatric History: Reports: Anxiety Endocrine/Metabolic History: Reports: None Other Endocrine/Metabolic History: hypoglycemic Hematologic History: Reports: Anemia Immunologic History: Reports: Other (See Below) Other Immunologic History: Dystonia Oncologic (Cancer) History: Reports: None Dermatologic History: Reports: None - Infectious Disease History Infectious Disease History: Reports: Chicken Pox Other Infectious Disease History: childhood - Past Surgical History Head Surgeries/Procedures: Reports: Shunt HEENT Surgical History: Reports: Adenoidectomy, Oral Surgery, Tonsillectomy Cardiovascular Surgical History: Reports: None Respiratory Surgical History: Reports: None GI Surgical History: Reports: None Female Surgical History: Reports: None Neurological Surgical History: Reports: Other (See Below) Other Neurological Surgeries/Procedures: 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 ED EXAM, GENERAL - Physical Exam Exam: See Below (see dictation) Course - Vital Signs Last Recorded V/S: Last Vital Signs Temp 97.3 F 05/28/19 17:29 Pulse 90 05/28/19 17:29 Resp 16 05/28/19 17:29 BP 114/75 05/28/19 17:29 Pulse Ox 94 L 05/28/19 17:29 - Orders/Labs/Meds Orders: Active Orders 24 hr Category Date Time Status DME for Discharge [COMM] Stat Oth 05/28/19 17:32 Ordered Departure - Departure Time of Disposition: 18:00 Disposition: Home, Self-Care 01 Clinical Impression: Shoulder pain Qualifiers: Chronicity: acute Laterality: left Qualified Code(s): M25.512 - Pain in left shoulder - Discharge Information Instructions: Shoulder Pain, [id number] Referrals: Jhon Wade MD [Primary Care Provider] - Forms: ED Department Discharge Additional Instructions: The following information is given to patients seen in the emergency department who are being discharged to home. This information is to outline your options for follow-up care. We provide all patients seen in our emergency department with a follow-up referral. The need for follow-up, as well as the timing and circumstances, are variable depending upon the specifics of your emergency department visit. If you don't have a primary care physician on staff, we will provide you with a referral. We always advise you to contact your personal physician following an emergency department visit to inform them of the circumstance of the visit and for follow-up with them and/or the need for any referrals to a consulting specialist. The emergency department will also refer you to a specialist when appropriate. This referral assures that you have the opportunity for follow-up care with a specialist. All of these measure are taken in an effort to provide you with optimal care, which includes your follow-up. Under all circumstances we always encourage you to contact your private physician who remains a resource for coordinating your care. When calling for follow-up care, please make the office aware that this follow-up is from your recent emergency room visit. If for any reason you are refused follow-up, please contact the Emergency Department at and asked to speak to the emergency department charge nurse. Primary Care [address] [place] [id number] [address] Special[facility] - [facility] [address] [place] [address], [address] [place] [address] 1. Rest, ice, elevate the affected extremity. You can apply ice 15 minutes on, 15 minutes off. 2. Tylenol as directed for pain management or discomfort. 3. Follow up with the Orthopedic provider as discussed. Return to the ED as needed and as discussed. Sepsis Event Note - Focused Exam Vital Signs: Vital Signs Temp Pulse Resp BP Pulse Ox 05/28/19 17:29 97.3 F 90 16 114/75 94 L Date Exam was Performed: 05/28/19 Time Exam was Performed: 17:59 - My Orders Last 24 Hours: My Active Orders 05/28/19 17:32 DME for Discharge [COMM] Stat - Assessment/Plan Last 24 Hours: My Active Orders 05/28/19 17:32 DME for Discharge [COMM] Stat
--- NOTE | 2019-05-28 17:54 | CR ---
INDICATION: pain TECHNIQUE: Left shoulder 3 views. COMPARISON: None. FINDINGS: Bones: Alignment is normal. No fractures or bone lesions. Joint spaces: Unremarkable. Soft tissues: Unremarkable. IMPRESSION: Unremarkable left shoulder. Dictated by: Ras Paula MD @ 05/28/2019 17:53:49 (Electronically Signed)
== END 2019-05-28 18:04 | disposition home or self-care (01) ==
LOC: MW.ED 17:06
DX: M25.512 Pain in left shoulder (principal); Z88.1 Allergy status to other antibiotic agents; Z88.5 Allergy status to narcotic agent; Z91.041 Radiographic dye allergy status; Z88.8 Allergy status to other drugs, medicaments and biological substances
CPT/HCPCS: 73030-26-LT; 73030-LT; 99283-25

== ENCOUNTER 2020-01-08 16:38 | Emergency (ER) | payer MEDICARE, OTHER ==
--- NOTE | 2020-01-08 17:07 | EDM.PDOC ---
<Cyrus Healy - Last Filed: 01/08/20 19:19> ED HPI GENERAL MEDICAL PROBLEM - General Chief Complaint: Respiratory Problem Stated Complaint: TROUBLE BREATHING,COLD SYMPTOMS Time Seen by Provider: 01/08/20 16:53 Source of Information: Reports: Patient History Limitations: Reports: No Limitations - History of Present Illness INITIAL COMMENTS - FREE TEXT/NARRATIVE: 34-year-old female with history of asthma and asplenia presents with shortness of breath and pleuritic chest discomfort that started 1 week ago. Symptoms worsened yesterday. She had a COVID test that was performed on Friday and results are pending. She admits to productive cough, frontal headache, fevers and chills, diffuse myalgia, generalized malaise, night sweats, sore throat. Chest discomfort that radiates to the back. 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 She denies weight loss, hemoptysis, runny nose, neck pain or stiffness. She takes Suboxone for history of opiate dependency. ROS: A 10-point review of systems, other than pertinent positives and negatives as stated per HPI, is otherwise negative Past medical history: No additional pertinent history Past Surgical history: No additional pertinent history Social history: No additional pertinent history Family history: No additional pertinent history PHYSICAL EXAM General: AOx4, GCS = 15, No distress HEENT: dry mucous membrane Neck: supple, no meningismus, no Kernig or Brudzinski Cardiac: S1S2 tachycardia Respiratory: CTAB, no crackles or rales, no wheezing Abdomen: Soft, nontender, no rebound or guarding, nondistended, no pulsatile mass. Back: nontender Musculoskeletal: NVI distally, no deformity Neuro: No focal deficits, CN 2 - 12 WNL. Head/Chest Pain Score (Numeric/FACES): 8 - Related Data Allergies Allergy/AdvReac Type Severity Reaction Status Date / Time clarithromycin [From Biaxin] Allergy Hives Verified 01/08/20 16:53 Iodinated Contrast Media Allergy Difficulty Verified 01/08/20 16:53 [Iodinated Contrast Media - Breathing IV Dye] ketorolac Allergy Nausea and Verified 01/08/20 16:53 Vomiting ketorolac tromethamine Allergy Nausea and Verified 01/08/20 16:53 [From Toradol] Vomiting lorazepam [From Ativan] Allergy Change Verified 01/08/20 16:53 Mental Status NSAIDS (Non-Steroidal Allergy Stomach Verified 01/08/20 16:53 Anti-Inflamma Upset tramadol Allergy Nausea and Verified 01/08/20 16:53 Vomiting tramadol HCl [From Ultracet] Allergy Cannot Verified 01/08/20 16:53 Remember Home Meds: Home Meds Buprenorphine HCl/Naloxone HCl [Suboxone 12 mg-3 mg Sl Film] 12 mg DAILY 01/08/20 [History] Past Medical History - Past Health History Medical/Surgical History: Denies Medical/Surgical History HEENT History: Reports: Impaired Vision, Sinusitis Cardiovascular History: Reports: None Respiratory History: Reports: Asthma, Pneumonia, Recurrent Gastrointestinal History: Reports: Bowel Obstruction, Other (See Below) Other Gastrointestinal History: gastric bypass Genitourinary History: Reports: None SEAT MENDER History: Reports: Spontaneous Musculoskeletal History: Reports: None Neurological History: Reports: Headaches, Chronic, Other (See Below) Other Neuro History: pseudo tumor cerebri, dystonia Psychiatric History: Reports: Anxiety Endocrine/Metabolic History: Reports: None Other Endocrine/Metabolic History: hypoglycemic Hematologic History: Reports: Anemia Immunologic History: Reports: Other (See Below) Other Immunologic History: Dystonia Oncologic (Cancer) History: Reports: None Dermatologic History: Reports: None - Infectious Disease History Infectious Disease History: Reports: None Other Infectious Disease History: childhood - Past Surgical History Head Surgeries/Procedures: Reports: Shunt HEENT Surgical History: Reports: Adenoidectomy, Oral Surgery, Tonsillectomy Cardiovascular Surgical History: Reports: None Respiratory Surgical History: Reports: None GI Surgical History: Reports: None Female Surgical History: Reports: None Neurological Surgical History: Reports: Other (See Below) Other Neurological Surgeries/Procedures: 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 ED EXAM, GENERAL - Physical Exam Exam: See Below EKG INTERPRETATION EKG Interpretation Comments: 93 Bpm, NSR, normal QRS interval, no STEMI. EKG and rhythm strip interpreted by me at 1708 Course - Re-Assessments/Exams Free Text/Narrative Re-Assessment/Exam: 01/08/20 19:19 Patient signed out to Dr. Lilly for disposition. Departure - Departure Disposition: Home, Self-Care 01 Condition: Good Clinical Impression: Viral syndrome - Discharge Information *PRESCRIPTION DRUG MONITORING PROGRAM REVIEWED*: Not Applicable *COPY OF PRESCRIPTION DRUG MONITORING REPORT IN PATIENT TJ: Not Applicable Instructions: Viral Respiratory Infection, [id number] Referrals: PCP,None [Primary Care Provider] - 3 Days Forms: ED Department Discharge Additional Instructions: The following information is given to patients seen in the emergency department who are being discharged to home. This information is to outline your options for follow-up care. We provide all patients seen in our emergency department with a follow-up referral. The need for follow-up, as well as the timing and circumstances, are variable depending upon the specifics of your emergency department visit. If you don't have a primary care physician on staff, we will provide you with a referral. We always advise you to contact your personal physician following an emergency department visit to inform them of the circumstance of the visit and for follow-up with them and/or the need for any referrals to a consulting specialist. The emergency department will also refer you to a specialist when appropriate. This referral assures that you have the opportunity for follow-up care with a specialist. All of these measure are taken in an effort to provide you with optimal care, which includes your follow-up. Under all circumstances we always encourage you to contact your private physician who remains a resource for coordinating your care. When calling for follow-up care, please make the office aware that this follow-up is from your recent emergency room visit. If for any reason you are refused follow-up, please contact the [facility] Emergency Department at and asked to speak to the emergency department charge nurse. If you do not have a primary care doctor, please follow up with the clinics below within 3-5 days. [facility] [address] [place] [address] [facility] [address] [place] [address] Sepsis Event Note (ED) - Evaluation Sepsis Screening Result: No Definite Risk <Paulo Lilly - Last Filed: 01/08/20 20:11> Course - Vital Signs Text/Narrative:: The patient did well in the emergency department. Differential diagnosis include pulmonary embolus as a cause of persistent tachycardia. The CT was negative. The patient felt better. She was discharged with a diagnosis of viral syndrome. Last Recorded V/S: Last Vital Signs Temp 96.6 F L 01/08/20 18:54 Pulse 77 01/08/20 18:54 Resp 16 01/08/20 16:54 BP 128/92 H 01/08/20 18:54 Pulse Ox 95 01/08/20 18:54 - Orders/Labs/Meds Orders: Active Orders 24 hr Category Date Time Status Cardiac Monitoring [RC] . DIRECTED Care 01/08/20 17:17 Active EKG Documentation Completion [RC] STAT Care 01/08/20 17:18 Active Pulse Oximetry [RC] ASDIRECTED Care 01/08/20 17:17 Active Sodium Chloride 0.9% [Saline Flush] Med 01/08/20 17:17 Active 10 ml FLUSH ASDIRECTED PRN Sodium Chloride 0.9% [Saline Flush] Med 01/08/20 17:17 Active 2.5 ml FLUSH ASDIRECTED PRN Saline Lock Insert [OM.PC] Stat Oth 01/08/20 17:17 Ordered Medication Orders Sodium Chloride (Saline Flush) 10 ml FLUSH ASDIRECTED PRN PRN Reason: Keep Vein Open Sodium Chloride (Saline Flush) 2.5 ml FLUSH ASDIRECTED PRN PRN Reason: Keep Vein Open Labs: Laboratory Tests 01/08/20 01/08/20 01/08/20 Range/Units 17:33 17:33 17:33 WBC 6.15 (4.0-11.0) K/uL RBC 4.55 (4.30-5.90) M/uL Hgb 10.0 L (12.0-16.0) g/dL Hct 34.3 L (36.0-46.0) % MCV 75.4 L (80.0-98.0) fL MCH 22.0 L (27.0-32.0) pg MCHC 29.2 L (31.0-37.0) g/dL RDW Std Deviation 47.3 (28.0-62.0) fl RDW Coeff of Saúl 17 H (11.0-15.0) % Plt Count 397 (150-400) K/uL MPV 9.90 (7.40-12.00) fL Add Manual Diff YES Neutrophils % (Manual) 46 L (48.0-80.0) % Lymphocytes % (Manual) 43 H (16.0-40.0) % Monocytes % (Manual) 7 (0.0-15.0) % Basophils % (Manual) 4 H (0.0-1.5) % Nucleated RBC % 0.0 /100WBC Absolute Seg Neuts 2.8 (1.4-5.7) Lymphocytes # (Manual) 2.6 H (0.6-2.4) Monocytes # (Manual) 0.4 (0.0-0.8) Basophils # (Manual) 0.2 H (0.0-0.1) Nucleated RBCs # 0 K/uL INR 0.98 APTT 22.7 (18.6-31.3) SEC D-Dimer, Quantitative 0.41 (0.0-0.50) mg/L FEU Sodium 138 (136-145) mmol/L Potassium 4.0 (3.5-5.1) mmol/L Chloride 105 (98-107) mmol/L Carbon Dioxide 25.4 (21.0-32.0) mmol/L BUN 9 (7.0-18.0) mg/dL Creatinine 0.7 (0.6-1.0) mg/dL Est Cr Clr Drug Dosing 103.82 mL/min Estimated GFR (MDRD) > 60.0 ml/min Glucose 88 (74-106) mg/dL Calcium 7.8 L (8.5-10.1) mg/dL Total Bilirubin 0.3 (0.2-1.0) mg/dL AST 23 (15-37) IU/L ALT 18 (14-63) IU/L Alkaline Phosphatase 82 (46-116) U/L Troponin I < 0.050 (0.000-0.056) ng/mL C-Reactive Protein < 0.20 (0.00-0.90) mg/dL Total Protein 7.0 (6.4-8.2) g/dL Albumin 3.5 (3.4-5.0) g/dL Globulin 3.5 (2.6-4.0) g/dL Albumin/Globulin Ratio 1.0 (0.9-1.6) COVID-19 ([place]) (NEGATIVE) 01/08/20 Range/Units 17:50 WBC (4.0-11.0) K/uL RBC (4.30-5.90) M/uL Hgb (12.0-16.0) g/dL Hct (36.0-46.0) % MCV (80.0-98.0) fL MCH (27.0-32.0) pg MCHC (31.0-37.0) g/dL RDW Std Deviation (28.0-62.0) fl RDW Coeff of Saúl (11.0-15.0) % Plt Count (150-400) K/uL MPV (7.40-12.00) fL Add Manual Diff Neutrophils % (Manual) (48.0-80.0) % Lymphocytes % (Manual) (16.0-40.0) % Monocytes % (Manual) (0.0-15.0) % Basophils % (Manual) (0.0-1.5) % Nucleated RBC % /100WBC Absolute Seg Neuts (1.4-5.7) Lymphocytes # (Manual) (0.6-2.4) Monocytes # (Manual) (0.0-0.8) Basophils # (Manual) (0.0-0.1) Nucleated RBCs # K/uL INR APTT (18.6-31.3) SEC D-Dimer, Quantitative (0.0-0.50) mg/L FEU Sodium (136-145) mmol/L Potassium (3.5-5.1) mmol/L Chloride (98-107) mmol/L Carbon Dioxide (21.0-32.0) mmol/L BUN (7.0-18.0) mg/dL Creatinine (0.6-1.0) mg/dL Est Cr Clr Drug Dosing mL/min Estimated GFR (MDRD) ml/min Glucose (74-106) mg/dL Calcium (8.5-10.1) mg/dL Total Bilirubin (0.2-1.0) mg/dL AST (15-37) IU/L ALT (14-63) IU/L Alkaline Phosphatase (46-116) U/L Troponin I (0.000-0.056) ng/mL C-Reactive Protein (0.00-0.90) mg/dL Total Protein (6.4-8.2) g/dL Albumin (3.4-5.0) g/dL Globulin (2.6-4.0) g/dL Albumin/Globulin Ratio (0.9-1.6) COVID-19 ([place]) NEGATIVE (NEGATIVE) Meds: Medications Generic Name Dose Route Start Last Admin Trade Name Freq PRN Reason Stop Dose Admin Sodium Chloride 10 ml 01/08/20 17:17 Saline Flush FLUSH ASDIRECTED PRN Keep Vein Open Sodium Chloride 2.5 ml 01/08/20 17:17 Saline Flush FLUSH ASDIRECTED PRN Keep Vein Open Discontinued Medications Generic Name Dose Route Start Last Admin Trade Name Freq PRN Reason Stop Dose Admin Dexamethasone 6 mg 01/08/20 18:01 01/08/20 18:49 Dexamethasone IVPUSH 01/08/20 18:02 6 mg ONETIME ONE Administration Diphenhydramine HCl 50 mg 01/08/20 18:01 01/08/20 18:49 Benadryl IVPUSH 01/08/20 18:02 50 mg ONETIME ONE Administration Lactated Ringer's 1,000 mls @ 999 mls/hr 01/08/20 17:17 01/08/20 17:42 Ringers, Lactated IV 01/08/20 18:17 999 mls/hr .BOLUS ONE Administration Lactated Ringer's 1,000 mls @ 999 mls/hr 01/08/20 19:04 Ringers, Lactated IV 01/08/20 20:04 .BOLUS ONE Iopamidol 50 ml 01/08/20 19:40 07/25/20 19:41 Isovue-370 (76%) IVPUSH 01/08/20 19:41 50 ml ONETIME ONE Administration Departure - Departure Time of Disposition: 20:11 Condition: Good Sepsis Event Note (ED) - Focused Exam Vital Signs: Vital Signs Temp Pulse Resp BP Pulse Ox 01/08/20 18:54 96.6 F L 77 128/92 H 95 01/08/20 16:54 97.2 F 112 H 16 124/88 97
[2020-01-08] MEDS ORDERED: Sodium Chloride 0.9% 2.5 ML Syringe FLUSH PRN (17:17)
[2020-01-08] MEDS ORDERED: Sodium Chloride 0.9% 10 ML Syringe FLUSH PRN (17:17)
[2020-01-08] MEDS ORDERED: Lactated Ringers 1,000 ML IV ONE ×2 (17:17→19:04)
[2020-01-08] MEDS ORDERED: Dexamethasone 10 MG/ML SDV IVPUSH ONE (18:01)
[2020-01-08] MEDS ORDERED: diphenhydrAMINE 50 MG/ML SDV IVPUSH ONE (18:01)
[2020-01-08 18:10] LABS: BLOOD UREA NITROGEN,BUN 9 mg/dL (7.0-18.0); CARBON DIOXIDE,CO2 25.4 mmol/L (21.0-32.0); CHLORIDE,CL 105 mmol/L (98-107); GLUCOSE RANDOM 88 mg/dL (74-106); SODIUM,NA 138 mmol/L (136-145)
[2020-01-08] MEDS ORDERED: Iopamidol 755 Mg/ML 100 ML Bottle IVPUSH ONE (19:40)
--- NOTE | 2020-01-08 19:51 | CT ---
CT chest Technique: Multiple axial sections were obtained from above the lung apices inferiorly through the lung bases. Intravenous contrast was utilized. Study performed as a pulmonary angiogram protocol. Findings: Pulmonary arteries are moderately well opacified. No discrete filling defects are seen to indicate pulmonary embolism. Aorta shows no aneurysm or dissection. Mediastinum and hilar region show no adenopathy. No pericardial thickening is seen. Visualized upper abdominal structures shows small hiatal hernia. Prior gastric surgery is noted. Lungs show no acute parenchymal change. No pleural effusions are seen. No pneumothorax is noted. Minimal dependent atelectasis seen posteriorly within the lungs. Bone window settings were reviewed which shows no acute osseous finding. Impression: 1. No findings of pulmonary embolism. Other findings believed to be incidental. 2. Nothing acute is seen on CT study of the chest. Diagnostic code #2 This report was dictated in MDT Diagnostic code #2 This report was dictated in MDT
[2020-01-08 20:40] VITALS: BP 129/73; PULSE 81
== END 2020-01-08 20:21 | disposition home or self-care (01) ==
LOC: MW.ED 16:38
DX: B34.9 Viral infection, unspecified (principal); J45.909 Unspecified asthma, uncomplicated; Z88.1 Allergy status to other antibiotic agents; Z91.041 Radiographic dye allergy status; Z88.6 Allergy status to analgesic agent; Z88.5 Allergy status to narcotic agent; Z79.899 Other long term (current) drug therapy; Z20.828 Contact with and (suspected) exposure to other viral communicable diseases
CPT/HCPCS: 36415; 71275; 80053; 84484; 85025; 85379; 85610; 85730; 86140; 93005; 96374; 96375; 99284; J1100; J1200; J7120; Q9967; U0002; 99283

== ENCOUNTER 2020-01-16 08:36 | Emergency (ER) | payer MEDICARE, OTHER ==
--- NOTE | 2020-01-16 08:49 | EDM.PDOC ---
ED HPI GENERAL MEDICAL PROBLEM - General Chief Complaint: Headache Stated Complaint: HEADACHE, FEVER Time Seen by Provider: 01/16/20 08:46 Source of Information: Reports: Patient History Limitations: Reports: No Limitations - History of Present Illness INITIAL COMMENTS - FREE TEXT/NARRATIVE: 34-year-old female with history of pseudotumor cerebri, paroxysmal nonkinesiogenic dyskinesia presents with frontal headache for 2 hours. She woke up and started noticing a frontal stabbing constant headache that started after a transient episode of twitching. She has been off of baclofen for 3 years. Associated with nausea, dry heaving, shortness of breath last night with dry cough. She denies fever, chills, neck pain or stiffness, blurry vision, chest pain, abdominal pain. She states she has been taking caffeine. Patient normally sees Dr. Kimberly Lowe for neurology in [place]. She has not seen her for over 3 years. She does not have a PCP. ROS: A 10-point review of systems, other than pertinent positives and negatives as stated per HPI, is otherwise negative Past medical history: No additional pertinent history Past Surgical history: No additional pertinent history Social history: No additional pertinent history Family history: No additional pertinent history PHYSICAL EXAM General: AOx4, GCS = 15, No distress HEENT: dry mucous membrane Neck: supple, no meningismus, no Kernig or Brudzinski Cardiac: S1S2 RRR Respiratory: CTAB, no crackles or rales, no wheezing Abdomen: Soft, nontender, no rebound or guarding, nondistended, no pulsatile mass. Back: nontender Musculoskeletal: NVI distally, no deformity Neuro: Episodic left-sided unilateral dystonia with ballism, retained cons ciousness. Medical decision making: My differential diagnosis includes paroxysmal non- Kinesiogenic dyskinesia, pseudotumor cerebri, migraine headache. Her temp symptoms started today with episodes of unilateral twitching, followed by frontal headache. I suspect her symptoms to be consistent with her paroxysmal non-kinesiogenic dyskinesia, she has been taking caffeine, which is often a trigger precipitating her severe dystonia that started today. Her headache followed her dyskinesia. MEDRANO started <6hrs ago, will perform CT head to assess for underlying secondary conditions, including stroke, TBI, SAH, worsening pseudotumor cerebri. The patient has no complaints of fever or neck pain or neck stiffness. She has no leukocytosis. I do not suspect meningitis. Hey dyskinesia resolved after IV reglan, benadryl. She declined fosphenytoin. HEADACHE Pain Score (Numeric/FACES): 18 - Related Data Allergies Allergy/AdvReac Type Severity Reaction Status Date / Time clarithromycin [From Biaxin] Allergy Hives Verified 01/16/20 08:55 Iodinated Contrast Media Allergy Difficulty Verified 01/16/20 08:55 [Iodinated Contrast Media - Breathing IV Dye] ketorolac Allergy Nausea and Verified 01/16/20 08:55 Vomiting ketorolac tromethamine Allergy Nausea and Verified 01/16/20 08:55 [From Toradol] Vomiting lorazepam [From Ativan] Allergy Change Verified 01/16/20 08:55 Mental Status NSAIDS (Non-Steroidal Allergy Stomach Verified 01/16/20 08:55 Anti-Inflamma Upset tramadol Allergy Nausea and Verified 01/16/20 08:55 Vomiting tramadol HCl [From Ultracet] Allergy Cannot Verified 01/16/20 08:55 Remember Home Meds: Home Meds Buprenorphine HCl/Naloxone HCl [Suboxone 12 mg-3 mg Sl Film] 12 mg DAILY 01/08/20 [History] Baclofen 10 mg PO DAILY #30 tablet 01/16/20 [Rx] cephALEXin [Keflex] 500 mg PO Q8H #30 cap 01/16/20 [Rx] Past Medical History - Past Health History Medical/Surgical History: Denies Medical/Surgical History HEENT History: Reports: Impaired Vision, Sinusitis Cardiovascular History: Reports: None Respiratory History: Reports: Asthma, Pneumonia, Recurrent Gastrointestinal History: Reports: Bowel Obstruction, Other (See Below) Other Gastrointestinal History: gastric bypass Genitourinary History: Reports: None [employer]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[employer]IVE History: Reports: Spontaneous Musculoskeletal History: Reports: None Neurological History: Reports: Headaches, Chronic, Other (See Below) Other Neuro History: pseudo tumor cerebri, dystonia Psychiatric History: Reports: Anxiety Endocrine/Metabolic History: Reports: None Other Endocrine/Metabolic History: hypoglycemic Hematologic History: Reports: Anemia Immunologic History: Reports: Other (See Below) Other Immunologic History: Dystonia Oncologic (Cancer) History: Reports: None Dermatologic History: Reports: None - Infectious Disease History Infectious Disease History: Reports: None Other Infectious Disease History: childhood - Past Surgical History Head Surgeries/Procedures: Reports: Shunt HEENT Surgical History: Reports: Adenoidectomy, Oral Surgery, Tonsillectomy Cardiovascular Surgical History: Reports: None Respiratory Surgical History: Reports: None GI Surgical History: Reports: None Female Surgical History: Reports: None Neurological Surgical History: Reports: Other (See Below) Other Neurological Surgeries/Procedures: 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, to correct pseudotumor; since removed Oncologic Surgical History: Reports: None Dermatological Surgical History: Reports: None Social & Family History - Family History Family Medical History: Noncontributory - Caffeine Use Caffeine Use: Reports: None ED ROS GENERAL - Review of Systems Review Of Systems: Comprehensive ROS is negative, except as noted in HPI. (see dictation) - Physical Exam Exam: See Below (see dictation) Course - Vital Signs Last Recorded V/S: Last Vital Signs Temp 96.9 F 01/16/20 10:45 Pulse 99 01/16/20 10:45 Resp 18 01/16/20 10:45 BP 102/46 L 01/16/20 10:45 Pulse Ox 97 01/16/20 10:45 - Orders/Labs/Meds Orders: Active Orders 24 hr Category Date Time Status Sodium Chloride 0.9% [Saline Flush] Med 01/16/20 09:19 Active 10 ml FLUSH ASDIRECTED PRN Sodium Chloride 0.9% [Saline Flush] Med 01/16/20 09:19 Active 2.5 ml FLUSH ASDIRECTED PRN Saline Lock Insert [OM.PC] Stat Oth 01/16/20 09:20 Ordered Medication Orders Sodium Chloride (Saline Flush) 10 ml FLUSH ASDIRECTED PRN PRN Reason: Keep Vein Open Last Admin: 01/16/20 10:01 Dose: 10 ml Documented by: DEDE Sodium Chloride (Saline Flush) 2.5 ml FLUSH ASDIRECTED PRN PRN Reason: Keep Vein Open Last Admin: 01/16/20 10:01 Dose: 2.5 ml Documented by: DEDE Labs: Laboratory Tests 01/16/20 01/16/20 01/16/20 Range/Units 09:42 09:42 09:51 WBC 6.34 (4.0-11.0) K/uL RBC 4.76 (4.30-5.90) M/uL Hgb 10.5 L (12.0-16.0) g/dL Hct 35.4 L (36.0-46.0) % MCV 74.4 L (80.0-98.0) fL MCH 22.1 L (27.0-32.0) pg MCHC 29.7 L (31.0-37.0) g/dL RDW Std Deviation 46.4 (28.0-62.0) fl RDW Coeff of Saúl 17 H (11.0-15.0) % Plt Count 406 H (150-400) K/uL MPV 9.90 (7.40-12.00) fL Neut % (Auto) 26.7 L (48.0-80.0) % Lymph % (Auto) 58.8 H (16.0-40.0) % Grady % (Auto) 8.5 (0.0-15.0) % Eos % (Auto) 3.3 (0.0-7.0) % Baso % (Auto) 2.7 H (0.0-1.5) % Neut # (Auto) 1.7 (1.4-5.7) K/uL Lymph # (Auto) 3.7 H (0.6-2.4) K/uL Grady # (Auto) 0.5 (0.0-0.8) K/uL Eos # (Auto) 0.2 (0.0-0.7) K/uL Baso # (Auto) 0.2 H (0.0-0.1) K/uL Nucleated RBC % 0.0 /100WBC Nucleated RBCs # 0 K/uL INR Sodium (136-145) mmol/L Potassium (3.5-5.1) mmol/L Chloride (98-107) mmol/L Carbon Dioxide (21.0-32.0) mmol/L BUN (7.0-18.0) mg/dL Creatinine (0.6-1.0) mg/dL Est Cr Clr Drug Dosing mL/min Estimated GFR (MDRD) ml/min Glucose (74-106) mg/dL Calcium (8.5-10.1) mg/dL Phosphorus (2.6-4.7) mg/dL Magnesium (1.8-2.4) mg/dL Total Bilirubin (0.2-1.0) mg/dL AST (15-37) IU/L ALT (14-63) IU/L Alkaline Phosphatase (46-116) U/L Creatine Kinase (26-308) U/L Total Protein (6.4-8.2) g/dL Albumin (3.4-5.0) g/dL Globulin (2.6-4.0) g/dL Albumin/Globulin Ratio (0.9-1.6) Urine Color YELLOW Urine Appearance HAZY Urine pH 6.5 (5.0-8.0) Ur Specific Casper 1.010 (1.001-1.035) Urine Protein NEGATIVE (NEGATIVE) mg/dL Urine Glucose (UA) NEGATIVE (NEGATIVE) mg/dL Urine Ketones NEGATIVE (NEGATIVE) mg/dL Urine Occult Blood NEGATIVE (NEGATIVE) Urine Nitrite POSITIVE H (NEGATIVE) Urine Bilirubin NEGATIVE (NEGATIVE) Urine Urobilinogen 0.2 (<2.0) EU/dL Ur Leukocyte Esterase NEGATIVE (NEGATIVE) Urine RBC 0-2 (0-2/HPF) Urine WBC 0-3 (0-5/HPF) Ur Epithelial Cells RARE (NONE-FEW) Urine Bacteria 3+ H (NEGATIVE) Urine HCG, Qual NEGATIVE (NEGATIVE) COVID-19 (RALEIGH) (NEGATIVE) 01/16/20 01/16/20 01/16/20 Range/Units 09:51 09:51 10:43 WBC (4.0-11.0) K/uL RBC (4.30-5.90) M/uL Hgb (12.0-16.0) g/dL Hct (36.0-46.0) % MCV (80.0-98.0) fL MCH (27.0-32.0) pg MCHC (31.0-37.0) g/dL RDW Std Deviation (28.0-62.0) fl RDW Coeff of Saúl (11.0-15.0) % Plt Count (150-400) K/uL MPV (7.40-12.00) fL Neut % (Auto) (48.0-80.0) % Lymph % (Auto) (16.0-40.0) % Grady % (Auto) (0.0-15.0) % Eos % (Auto) (0.0-7.0) % Baso % (Auto) (0.0-1.5) % Neut # (Auto) (1.4-5.7) K/uL Lymph # (Auto) (0.6-2.4) K/uL Grady # (Auto) (0.0-0.8) K/uL Eos # (Auto) (0.0-0.7) K/uL Baso # (Auto) (0.0-0.1) K/uL Nucleated RBC % /100WBC Nucleated RBCs # K/uL INR 0.92 Sodium 141 (136-145) mmol/L Potassium 3.9 (3.5-5.1) mmol/L Chloride 106 (98-107) mmol/L Carbon Dioxide 24.0 (21.0-32.0) mmol/L BUN 6 L (7.0-18.0) mg/dL Creatinine 0.7 (0.6-1.0) mg/dL Est Cr Clr Drug Dosing 103.82 mL/min Estimated GFR (MDRD) > 60.0 ml/min Glucose 106 (74-106) mg/dL Calcium 8.0 L (8.5-10.1) mg/dL Phosphorus 2.8 (2.6-4.7) mg/dL Magnesium 2.1 (1.8-2.4) mg/dL Total Bilirubin 0.3 (0.2-1.0) mg/dL AST 31 (15-37) IU/L ALT 18 (14-63) IU/L Alkaline Phosphatase 89 (46-116) U/L Creatine Kinase 51 (26-308) U/L Total Protein 7.9 (6.4-8.2) g/dL Albumin 3.8 (3.4-5.0) g/dL Globulin 4.1 H (2.6-4.0) g/dL Albumin/Globulin Ratio 0.9 (0.9-1.6) Urine Color Urine Appearance Urine pH (5.0-8.0) Ur Specific Casper (1.001-1.035) Urine Protein (NEGATIVE) mg/dL Urine Glucose (UA) (NEGATIVE) mg/dL Urine Ketones (NEGATIVE) mg/dL Urine Occult Blood (NEGATIVE) Urine Nitrite (NEGATIVE) Urine Bilirubin (NEGATIVE) Urine Urobilinogen (<2.0) EU/dL Ur Leukocyte Esterase (NEGATIVE) Urine RBC (0-2/HPF) Urine WBC (0-5/HPF) Ur Epithelial Cells (NONE-FEW) Urine Bacteria (NEGATIVE) Urine HCG, Qual (NEGATIVE) COVID-19 ([place]) NEGATIVE (NEGATIVE) Meds: Medications Generic Name Dose Route Start Last Admin Trade Name Freq PRN Reason Stop Dose Admin Sodium Chloride 10 ml 01/16/20 09:19 01/16/20 10:01 Saline Flush FLUSH 10 ml ASDIRECTED PRN Administration Keep Vein Open Sodium Chloride 2.5 ml 01/16/20 09:19 01/16/20 10:01 Saline Flush FLUSH 2.5 ml ASDIRECTED PRN Administration Keep Vein Open Discontinued Medications Generic Name Dose Route Start Last Admin Trade Name Freq PRN Reason Stop Dose Admin Baclofen 10 mg 01/16/20 09:32 Lioresal PO 01/16/20 09:33 ONETIME ONE Diphenhydramine HCl 50 mg 01/16/20 09:19 01/16/20 10:01 Benadryl IVPUSH 01/16/20 09:20 50 mg ONETIME ONE Administration Lactated Ringer's 1,000 mls @ 999 mls/hr 01/16/20 09:19 01/16/20 10:01 Ringers, Lactated IV 01/16/20 10:19 999 mls/hr .BOLUS ONE Administration Fosphenytoin Sodium 1,500 mg. 80 mls @ 150 mls/hr 01/16/20 09:33 01/16/20 10:34 pe/ Sodium Chloride IV 01/16/20 10:00 Not Given NOW ONE Metoclopramide HCl 10 mg 01/16/20 09:19 01/16/20 10:02 Reglan IVPUSH 01/16/20 09:20 10 mg ONETIME ONE Administration - Re-Assessments/Exams Free Text/Narrative Re-Assessment/Exam: 01/16/20 09:36: Ordered 1.5 g IV fosphenytoin, baclofen p.o, Reglan and Benadryl. 01/16/20 10:33: Dyskinesia resolved with IV benadryl and reglan. Patient is declining acute get IV fosphenytoin. She will get baclofen. 01/16/20 11:32: After treatments and observation in the ER, her headache improved and her dyskinesia and ballism is resolved. She is currently stable for discharge. I performed a repeat exam and did not appreciate new abnormal findings. Patient exhibits normal vital signs and has a normal gait on road test. I advised the patient to return to the ER for reevaluation if symptoms worsened, including fever, worsening pain, or any other worrisome symptoms. I instructed the patient to follow up with their PCP and Dr. Kimberly Lowe within 2-3 days. She will be prescribed baclofen. MEDICAL DECISION MAKING: I reviewed the patients past medical records, lab and radiographic findings. I discussed the case with the patient. My differential diagnosis included: Medical decision making: My differential diagnosis includes paroxysmal non- Kinesiogenic dyskinesia, pseudotumor cerebri, migraine headache. Her temp symptoms started today with episodes of unilateral twitching, followed by frontal headache. I suspect her symptoms to be consistent with her paroxysmal non-kinesiogenic dyskinesia, she has been taking caffeine, which is often a trigger precipitating her severe dystonia that started today. Her headache followed her dyskinesia. MEDRANO started <6hrs ago, will perform CT head to assess for underlying secondary conditions, including stroke, TBI, SAH, worsening pseudotumor cerebri. The patient has no complaints of fever or neck pain or neck stiffness. She has no leukocytosis. I do not suspect meningitis. Solomony dyskinesia resolved after IV reglan, benadryl. She declined fosphenytoin. Departure - Departure Time of Disposition: 11:34 Disposition: Home, Self-Care 01 Condition: Good Clinical Impression: Movement disorder UTI (urinary tract infection) Qualifiers: Urinary tract infection type: site unspecified Hematuria presence: without hematuria Qualified Code(s): N39.0 - Urinary tract infection, site not specified - Discharge Information *PRESCRIPTION DRUG MONITORING PROGRAM REVIEWED*: Not Applicable *COPY OF PRESCRIPTION DRUG MONITORING REPORT IN PATIENT TJ: Not Applicable Prescriptions: Baclofen 10 mg PO DAILY #30 tablet cephALEXin [Keflex] 500 mg PO Q8H #30 cap Instructions: Antibiotic Medicine, Adult, [id number], Urinary Tract Infection, Adult Referrals: Jhon Wade MD [Primary Care Provider] - 3 Days Kimberly Lowe MD [Ordering Only Provider] - 3 Days Forms: ED Department Discharge Additional Instructions: The need for follow-up, as well as the timing and circumstances, are variable depending upon the specifics of your emergency department visit. If you don't have a primary care physician on staff, we will provide you with a referral. We always advise you to contact your personal physician following an emergency department visit to inform them of the circumstance of the visit and for follow-up with them and/or the need for any referrals to a consulting specialist. The emergency department will also refer you to a specialist when appropriate. This referral assures that you have the opportunity for follow-up care with a specialist. All of these measure are taken in an effort to provide you with optimal care, which includes your follow-up. Under all circumstances we always encourage you to contact your private physician who remains a resource for coordinating your care. When calling for follow-up care, please make the office aware that this follow-up is from your recent emergency room visit. If for any reason you are refused follow-up, please contact the Emergency Department at and asked to speak to the emergency department charge nurse. If you do not have a primary care doctor, please follow up with the clinics below within 3-5 days. [facility] - Primary Care [address] [place] [id number] [address] [facility] - Neurology Professional Building [address] [facility], [address] [place] [address] Sepsis Event Note (ED) - Focused Exam Vital Signs: Vital Signs Temp Pulse Resp BP Pulse Ox 01/16/20 10:45 96.9 F 99 18 102/46 L 97 01/16/20 09:30 98 17 111/67 98 01/16/20 08:52 96.8 F L 105 H 18 135/97 H 100 - My Orders Last 24 Hours: My Active Orders 01/16/20 09:19 Sodium Chloride 0.9% [Saline Flush] 10 ml FLUSH ASDIRECTED PRN Sodium Chloride 0.9% [Saline Flush] 2.5 ml FLUSH ASDIRECTED PRN 01/16/20 09:20 Saline Lock Insert [OM.PC] Stat - Assessment/Plan Last 24 Hours: My Active Orders 01/16/20 09:19 Sodium Chloride 0.9% [Saline Flush] 10 ml FLUSH ASDIRECTED PRN Sodium Chloride 0.9% [Saline Flush] 2.5 ml FLUSH ASDIRECTED PRN 01/16/20 09:20 Saline Lock Insert [OM.PC] Stat
[2020-01-16] MEDS ORDERED: Sodium Chloride 0.9% 2.5 ML Syringe FLUSH PRN (09:19)
[2020-01-16] MEDS ORDERED: Sodium Chloride 0.9% 10 ML Syringe FLUSH PRN (09:19)
[2020-01-16] MEDS ORDERED: diphenhydrAMINE 50 MG/ML SDV IVPUSH ONE (09:19)
[2020-01-16] MEDS ORDERED: Metoclopramide 10 MG/2 ML SDV IVPUSH ONE (09:19)
[2020-01-16] MEDS ORDERED: Lactated Ringers 1,000 ML IV ONE (09:19)
[2020-01-16] MEDS ORDERED: Baclofen 10 MG Tab PO ONE (09:32)
[2020-01-16] MEDS ORDERED: Fosphenytoin 1,500 MG.PE in Sodium Chloride 0.9% 50 ML IV ONE (09:33)
[2020-01-16 10:21] LABS: BLOOD UREA NITROGEN,BUN 6 mg/dL (7.0-18.0); CHLORIDE,CL 106 mmol/L (98-107); GLUCOSE RANDOM 106 mg/dL (74-106); POTASSIUM,K 3.9 mmol/L (3.5-5.1); SODIUM,NA 141 mmol/L (136-145)
--- NOTE | 2020-01-16 10:27 | CR ---
Addendum: Please note that CT report does not belong on this exam. This study was a chest x-ray. Following is the complete dictation for the chest x-ray: Chest: PA view of the chest was obtained. Comparison: Prior chest x-ray of 05/19/19. Heart size and mediastinum are normal. Lungs are clear with no acute parenchymal change. Bony structures are grossly intact. Surgical clips are seen within the upper abdomen. Impression: 1. Nothing acute is seen on PA chest x-ray. Please ignore head CT report. Diagnostic code #2 This report was dictated in MDT --- Addendum1 above dictated on [01/16/2020 09:32] by [Onur Camilo Hilton J.] --- --- Addendum1 above signed on [01/16/2020 09:32] by [Onur Camilo Hilton J.] --- --- Original report below dictated on [01/16/2020 09:25] by [Onur Camilo Hilton J.] --- --- Original report below signed on [01/16/2020 09:25] by [Onur Camilo, Surjit Howard] --- Head CT Technique: Multiple axial sections through the brain were obtained. Intravenous contrast was not utilized. Comparison: Previous study of 05/30/16. Findings: Ventricles along with basal cisterns and sulci over the convexities are within normal limits for the patient's age. Small low density area is noted within the periventricular white matter within the right frontal region. This finding is felt to be fairly stable from prior exam. No other abnormal parenchymal densities are seen. No evidence of intracranial hemorrhage. No midline shift or mass-effect is seen. Bone window settings were reviewed. No acute calvarial abnormality is seen. Visualized mastoid and paranasal sinuses are clear. Impression: 1. Low density finding is noted within the periventricular white matter within the right frontal region. This finding is seen on prior study and is otherwise nonspecific for small area of demyelination. 2. No acute intracranial abnormality is appreciated. Diagnostic code #2 This report was dictated in MDT --- Addendum1 signed ---
--- NOTE | 2020-01-16 10:31 | CT ---
Head CT Technique: Multiple axial sections through the brain were obtained. Intravenous contrast was not utilized. Comparison: Prior head CT study of 05/30/16. Findings: Ventricles along with basal cisterns and sulci over the convexities are within normal limits for the patient's age. Minimal low density area noted within the periventricular white matter within the posterior right frontal region which appears stable from prior exam. No other abnormal parenchymal densities are seen. No evidence of intracranial hemorrhage. No midline shift or mass-effect is seen. Bone window settings were reviewed. Previous davey holes appeared to be present. No acute calvarial abnormality is appreciated. Visualized paranasal sinuses and mastoid sinuses are clear. Impression: 1. Old findings as noted above. 2. Nothing acute is appreciated on noncontrast head CT study. Diagnostic code #2 This report was dictated in MDT
[2020-01-16 11:52] VITALS: BP 128/89; PULSE 94
== END 2020-01-16 11:45 | disposition home or self-care (01) ==
LOC: MW.ED 08:36
DX: N39.0 Urinary tract infection, site not specified (principal); G25.9 Extrapyramidal and movement disorder, unspecified; Z91.041 Radiographic dye allergy status; Z88.1 Allergy status to other antibiotic agents; Z88.6 Allergy status to analgesic agent; Z88.8 Allergy status to other drugs, medicaments and biological substances; Z88.5 Allergy status to narcotic agent; Z20.828 Contact with and (suspected) exposure to other viral communicable diseases
CPT/HCPCS: 36415; 70450; 71045; 80053; 81001; 81025; 82550; 83735; 84100; 85025; 85610; 96374; 96375; 99284; J1200; J2765; J7120; U0002; 99283

== ENCOUNTER 2020-10-17 13:03 | Emergency (ER) | payer MEDICARE, MEDICAID ==
[2020-10-17] MEDS ORDERED: carBAMazepine 200 MG Tab PO ONE (13:12)
[2020-10-17] MEDS ORDERED: diphenhydrAMINE 50 MG/ML SDV IVPUSH ONE (13:12)
[2020-10-17] MEDS ORDERED: Sodium Chloride 0.9% 1,000 ML IV ONE (14:47)
[2020-10-17] MEDS ORDERED: Acetaminophen 500 MG Tab PO ONE (15:03)
[2020-10-17 15:19] LABS: BLOOD UREA NITROGEN,BUN 6 mg/dL (7.0-18.0); CARBON DIOXIDE,CO2 22.8 mmol/L (21.0-32.0); CHLORIDE,CL 103 mmol/L (98-107); GLUCOSE RANDOM 95 mg/dL (74-106); POTASSIUM,K 4.1 mmol/L (3.5-5.1); SODIUM,NA 141 mmol/L (136-145)
[2020-10-17 16:09] VITALS: BP 135/77; PULSE 86
--- NOTE | 2020-10-17 16:13 | EDM.PDOC ---
ED HPI GENERAL MEDICAL PROBLEM - General Chief Complaint: General Stated Complaint: MOVEMENT DISORDER Time Seen by Provider: 10/17/20 13:15 - History of Present Illness INITIAL COMMENTS - FREE TEXT/NARRATIVE: CHIEF COMPLAINT(S): Total body spasm HISTORY OF PRESENT ILLNESS: This is a 34-year-old woman with a past medical history of paroxysmal periodic dyskinesia who presents to the emergency department with total body spasm. The patient states that she occasionally has the spasms due to her disorder. She states that she was evaluated at [facility]. She states that she does not know the trigger. She states that when they happen they usually do not last very long however 2 days has lasted a little bit longer. She denies any chest pain, shortness of breath, abdominal pain, nausea or vomiting but states that she does have some body aches throughout her body which are mild rated 4-5 out of 10. She states that she was on baclofen for quite some time which did not work and it started not to work. She states that she does have a appointment with a doctor later this month for continued management of the disorder. REVIEW OF SYSTEMS: Constitutional: Denies fever, chills. Eyes: Denies eye pain Ears, Nose, Mouth, & Throat: Denies earache Cardiovascular: Denies chest pain Respiratory: Denies shortness of breath Gastrointestinal: Denies Nausea, vomiting, diarrhea, hematochezia. Genitourinary: Denies hematuria Skin:Denies a rash MSK: Positive for total body spasm Neurological: Denies blurred vision Psychiatric: Denies depression PAST MEDICAL HISTORY: As per history of present illness and as reviewed below otherwise noncontributory. SURGICAL HISTORY: As per history of present illness and as reviewed below otherwise noncontributory. SOCIAL HISTORY: As per history of present illness and as reviewed below otherwise noncontributory. FAMILY HISTORY: As per history of present illness and as reviewed below otherwise noncontributory. EXAMINATION OF ORGAN SYSTEMS/BODY AREAS: Constitutional: Blood pressure was 136/93, heart rate 108, respiratory rate 17 with next saturation 90% on room air. Temperature 36.8 General: Young woman who appears tensed up but is in no acute distress Psychiatric: Appropriate mood and affect. Eyes: No scleral icterus or conjunctival erythema ENMT: Moist mucous membranes. No pharyngeal erythema Cardiovascular: Regular, rate, and rhythm. No gallops, murmurs, or rubs. Bilateral upper extremity pulses symmetric and intact. No peripheral edema. No JVD. Respiratory: Lungs clear to auscultation bilaterally. No wheezes, rales, or rhonchi. Gastrointestinal: Soft, non-tender, non-distended. Normoactive bowel sounds Genitourinary: No suprapubic tenderness Musculoskeletal: The patient's upper arms are flexed and held towards her body and she has some mild torticollis to the left. Her hips are also flexed at the hip. Skin: No lesions or abrasions. Neurological: Alert, GCS 15 MEDICAL DECISION MAKING AND COURSE IN THE ED WITH INTERPRETATION/REVIEW OF DIAGNOSTIC STUDIES: This is a 35-year-old woman with a past medical history of paroxysmal Periodic dyskinesia who presents to the emergency department with an exacerbation of her dyskinesia. At this time I did review the patient's chart and she does have a history of this disorder. According to prior records she was started on carbamazepine and was provided with Benadryl. Therefore I will start the patient on carbamazepine and provide the patient 50 mg IV Benadryl. I do not believe any other further imaging is indicated. We will provide the patient with Tylenol for pain relief and obtain a BMP and a CPK. We will reevaluate for improvement. Laboratory: Basic metabolic panel is unremarkable. CPK is normal. After period of observation the patient symptoms completely resolved. I did discuss with her that she need to keep her appointment. I discussed with her that I could provide her with a prescription for carbamazepine as using up-to-date this seems to be the appropriate treatment. She states that she would rather follow-up with the primary physician. She was amenable to this plan and had no further questions. She is to return for any new or worsening symptoms DISPOSITION: The patient was discharged home in stable condition. The patient will follow up at her scheduled appointment CONDITION: Fair PROCEDURES: None FINAL IMPRESSION(S)/DIAGNOSES: 1. Acute dyskinesia secondary to paroxysmal periodic dyskinesia Gen Gan M.D. Whole Body Pain Score (Numeric/FACES): 8 - Related Data Allergies Allergy/AdvReac Type Severity Reaction Status Date / Time clarithromycin [From Biaxin] Allergy Hives Verified 10/17/20 13:11 Iodinated Contrast Media Allergy Difficulty Verified 10/17/20 13:11 [Iodinated Contrast Media - Breathing IV Dye] ketorolac Allergy Nausea and Verified 10/17/20 13:11 Vomiting ketorolac tromethamine Allergy Nausea and Verified 10/17/20 13:11 [From Toradol] Vomiting lorazepam [From Ativan] Allergy Change Verified 10/17/20 13:11 Mental Status NSAIDS (Non-Steroidal Allergy Stomach Verified 10/17/20 13:11 Anti-Inflamma Upset tramadol Allergy Nausea and Verified 10/17/20 13:11 Vomiting tramadol HCl [From Ultracet] Allergy Cannot Verified 10/17/20 13:11 Remember Home Meds: Home Meds . [Unable to Verify Home Med List] 10/17/20 [History] Past Medical History - Past Health History Medical/Surgical History: Denies Medical/Surgical History HEENT History: Reports: Impaired Vision, Sinusitis Cardiovascular History: Reports: None Respiratory History: Reports: Asthma, Pneumonia, Recurrent Gastrointestinal History: Reports: Bowel Obstruction, Other (See Below) Other Gastrointestinal History: gastric bypass Genitourinary History: Reports: None FR[employer] ALIGNMENT SPECIALIST History: Reports: Spontaneous Musculoskeletal History: Reports: None Neurological History: Reports: Headaches, Chronic, Other (See Below) Other Neuro History: pseudo tumor cerebri, dystonia Psychiatric History: Reports: Anxiety Endocrine/Metabolic History: Reports: None Other Endocrine/Metabolic History: hypoglycemic Hematologic History: Reports: Anemia Immunologic History: Reports: Other (See Below) Other Immunologic History: Dystonia Oncologic (Cancer) History: Reports: None Dermatologic History: Reports: None - Infectious Disease History Infectious Disease History: Reports: None Other Infectious Disease History: childhood - Past Surgical History Head Surgeries/Procedures: Reports: Shunt HEENT Surgical History: Reports: Adenoidectomy, Oral Surgery, Tonsillectomy Cardiovascular Surgical History: Reports: None Respiratory Surgical History: Reports: None GI Surgical History: Reports: None Other GI Surgeries/Procedures: spleenectomy Female Surgical History: Reports: None Endocrine Surgical History: Reports: None Neurological Surgical History: Reports: Other (See Below) Other Neurological Surgeries/Procedures: 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, to correct pseudotumor; since removed Musculoskeletal Surgical History: Reports: None Other Musculoskeletal Surgeries/Procedures:: L knee surgery Oncologic Surgical History: Reports: None Dermatological Surgical History: Reports: None Social & Family History - Family History Family Medical History: No Pertinent Family History - Tobacco Use Tobacco Use Status *Q: Unknown Ever Used Tobacco - Caffeine Use Caffeine Use: Reports: None - Recreational Drug Use Recreational Drug Use: No ED ROS GENERAL - Review of Systems Review Of Systems: See Below ED EXAM, GENERAL - Physical Exam Exam: See Below Course - Vital Signs Last Recorded V/S: Last Vital Signs Temp 36.4 C 10/17/20 16:08 Pulse 86 10/17/20 16:08 Resp 17 10/17/20 16:08 BP 135/77 10/17/20 16:08 Pulse Ox 97 10/17/20 16:08 - Orders/Labs/Meds Labs: Laboratory Tests 10/17/20 Range/Units 13:10 Sodium 141 (136-145) mmol/L Potassium 4.1 (3.5-5.1) mmol/L Chloride 103 (98-107) mmol/L Carbon Dioxide 22.8 (21.0-32.0) mmol/L BUN 6 L (7.0-18.0) mg/dL Creatinine 0.9 (0.6-1.0) mg/dL Est Cr Clr Drug Dosing 80.00 mL/min Estimated GFR (MDRD) > 60.0 ml/min Glucose 95 (74-106) mg/dL Calcium 8.5 (8.5-10.1) mg/dL Creatine Kinase 77 (26-308) U/L Meds: Medications Discontinued Medications Generic Name Dose Route Start Last Admin Trade Name Nathanq PRN Reason Stop Dose Admin Acetaminophen 1,000 mg 10/17/20 15:03 10/17/20 15:19 Acetaminophen 500 Mg Tab PO 10/17/20 15:04 1,000 mg ONETIME ONE Administration Carbamazepine 200 mg 10/17/20 13:12 10/17/20 13:23 Carbamazepine 200 Mg Tab PO 10/17/20 13:13 200 mg ONETIME ONE Administration Diphenhydramine HCl 50 mg 10/17/20 13:12 10/17/20 13:23 Diphenhydramine 50 Mg/Ml Sdv IVPUSH 10/17/20 13:13 50 mg ONETIME ONE Administration Sodium Chloride 1,000 mls @ 999 mls/hr 10/17/20 14:47 10/17/20 14:59 Normal Saline IV 10/17/20 15:47 999 mls/hr .Bolus ONE Administration Departure - Departure Time of Disposition: 16:12 Disposition: Home, Self-Care 01 Condition: Fair Clinical Impression: Dystonia - Discharge Information *PRESCRIPTION DRUG MONITORING PROGRAM REVIEWED*: No *COPY OF PRESCRIPTION DRUG MONITORING REPORT IN PATIENT TJ: No Instructions: Dystonic Reaction Referrals: PCP,None [Primary Care Provider] - Forms: ED Department Discharge Additional Instructions: You were evaluated today on an emergent basis. At this time we did provide you with carbamazepine and Benadryl and your symptoms did improve. I do recommend that you continue with fluid hydration including Gatorade or Pedialyte. I do recommend that you keep your appointment as scheduled. I did discuss with you the option of taking carbamazepine however you would like to follow-up with the physician prior to starting this. It does appear that you were taking this in the past. If you have any new or worsening symptoms please return to the emergency department. [facility] [address] [place] [id number] [place] [id number] The patient is informed of any results of their evaluation and diagnostic workup and all questions are answered. They are given discharge instructions and return precautions. The patient is stable for discharge. The patient states they understand and agree with the plan and that they will return if their symptoms get worse or if they have any new concerns. The following information is given to patients seen in the emergency department who are being discharged to home. This information is to outline your options for follow-up care. We provide all patients seen in our emergency department with a follow-up referral. The need for follow-up, as well as the timing and circumstances, are variable depending upon the specifics of your emergency department visit. If you don't have a primary care physician on staff, we will provide you with a referral. We always advise you to contact your personal physician following an emergency department visit to inform them of the circumstance of the visit and for follow-up with them and/or the need for any referrals to a consulting specialist. The emergency department will also refer you to a specialist when appropriate. This referral assures that you have the opportunity for follow-up care with a specialist. All of these measure are taken in an effort to provide you with optimal care, which includes your follow-up. Under all circumstances we always encourage you to contact your private physician who remains a resource for coordinating your care. When calling for follow-up care, please make the office aware that this follow-up is from your recent emergency room visit. If for any reason you are refused follow-up, please contact the [facility] Emergency Department at and asked to speak to the emergency department charge nurse. Sepsis Event Note (ED) - Evaluation Sepsis Screening Result: No Definite Risk
== END 2020-10-17 16:32 | disposition home or self-care (01) ==
LOC: MW.ED 13:03
DX: G24.9 Dystonia, unspecified (principal); J45.909 Unspecified asthma, uncomplicated; Z88.1 Allergy status to other antibiotic agents; Z91.040 Latex allergy status; Z88.6 Allergy status to analgesic agent; Z88.5 Allergy status to narcotic agent; Z88.8 Allergy status to other drugs, medicaments and biological substances; Z79.899 Other long term (current) drug therapy
CPT/HCPCS: 36415; 80048; 82550; 96374; 99284; A9270; J1200; J7030; 99283

== ENCOUNTER 2020-11-03 16:12 | Emergency (ER) | payer MEDICARE, MEDICAID ==
[2020-11-03] MEDS ORDERED: Sodium Chloride 0.9% 2.5 ML Syringe FLUSH PRN (16:35)
[2020-11-03] MEDS ORDERED: Sodium Chloride 0.9% 10 ML Syringe FLUSH PRN (16:35)
[2020-11-03] MEDS: diphenhydrAMINE 50 MG/ML SDV IVPUSH ONE ×2 (16:43→16:45)
[2020-11-03] MEDS: Metoclopramide 10 MG/2 ML SDV IVPUSH ONE ×2 (16:43→16:45)
--- NOTE | 2020-11-03 16:44 | EDM.PDOC ---
ED HPI GENERAL MEDICAL PROBLEM - General Chief Complaint: Respiratory Problem Stated Complaint: COUGH, SHORT OF BREATH Time Seen by Provider: 11/03/20 16:14 Source of Information: Reports: Patient History Limitations: Reports: No Limitations - History of Present Illness INITIAL COMMENTS - FREE TEXT/NARRATIVE: HISTORY AND PHYSICAL: History of present illness: The patient is a 35-year-old female with a history of childhood asthma who presents to the emergency room with complaints of chest tightness, hoarse voice, cough for 4 days. The patient states that the first day of illness she does have a slight scratchy throat. Second day of illness she lost her voice and had a slight cough. Third day of illness increased cough and chest tightness. She denies wheezing. She states she has had a very bad headache for the last 3 days. She said she took Tylenol every 4 hours yesterday without relief. She denies loss of taste and smell. She denies fever but has had chills. She states that she has had night sweats for the last week. She has been using her rescue inhaler 4 times yesterday but it did not seem to help. Patient denies any change in vision, syncope or near syncope. Denies any chest pain or back pain. Denies any abdominal pain, nausea, vomiting, diarrhea, constipation or dysuria. Has not noted any blood in urine or stool. Patient has been eating and drinking appropriately. In the emergency room the patient is hemodynamically stable with a blood pressure of 136/92 and a heart rate of 96. She is afebrile with a temperature of 97.6. She appears in no respiratory distress and has an SPO2 of 99% and a respiratory rate of 18. Review of systems: As per history of present illness and below otherwise all systems reviewed and negative. Past medical history: As per history of present illness and as reviewed below otherwise noncontributory. Surgical history: As per history of present illness and as reviewed below otherwise noncontributory. Social history: See social history for further information Family history: As per history of present illness and as reviewed below otherwise noncontributory. Physical exam: General: Well developed and well nourished. Alert and orientated x 3. Nontoxic in appearance and in no acute distress. Vital signs are stable and have been reviewed by me. Nursing notes were reviewed. HEENT: Atraumatic, normocephalic, pupils equal and reactive bilaterally, negative for conjunctival pallor or scleral icterus, mucous membranes moist, TMs normal bilaterally, throat mild erythema, neck supple, mildly tender, trachea midline. No drooling or trismus noted. No meningeal signs. Voice is scratchy. Lungs: Clear to auscultation bilaterally. No wheezes, rales, or rhonchi. Chest nontender. Normal work of breathing, no accessory muscles used. Heart: S1S2, regular rate and rhythm without overt murmur, gallops, or rubs. No JVD. No peripheral edema Abdomen: Soft, nondistended, nontender. Normoactive bowel sounds. Negative for masses or costovertebral tenderness. Skin: Intact, warm, dry. No lesions or rashes noted. Hematologic: No petechiae or purpra. Mucosa appropriate color and normal nail bed color and refill. Extremities: Atraumatic, moves all extremities per self without difficulty or deficits, negative for cords or calf pain. Neurovascular unremarkable. Neuro: Awake, alert, oriented. Cranial nerves II through XII unremarkable. Cerebellum unremarkable. Motor and sensory unremarkable throughout. Exam nonfocal. Psychiatric: Mood and affect are appropriate. Normal thought process. Answering questions appropriately. Notes: *This patient was seen and evaluated during the 2019 SARS-CoV-2 novel coronavirus pandemic period. Community viral transmission is ongoing at time of this encounter and the emergency department is operating under pandemic response procedures. After discussion and examination the patient is agreeable to blood work and a chest x-ray. I have offered the patient Reglan and Benadryl for her headache, however, she states that she does not have a ride home and will just take Tylenol. I have ordered Tylenol for the patient. I offered the patient Nickmargarita Rory and she declined stating they never helped her. Radiology reading of chest x-ray: IMPRESSION:No acute cardiopulmonary findings. CBC unremarkable. CMP: Potassium 3.3. COVID-19 negative. Strep negative. I discussed the results with the patient who requested promethazine with codeine. I will order the promethazine with codeine 5 mL every 4-6 hours as needed for cough. I have instructed the patient this is most likely bronchitis and no antibiotic is needed. The patient is not having shortness of breath and her SPO2 is 96% on room air. The patient is agreeable to the discharge instructions. I have talked with the patient about today's findings, in addition to providing specific details for plan of care. Reassessment at the time of disposition demonstrates that the patient is in no acute distress. The patient is stable for discharge, counseling was provided and we discussed in great detail signs and symptoms that would prompt them to return to the Emergency Department. Medication, follow up and supportive care measures were reviewed and discussed. Voices understanding and is agreeable to plan of care. Denies any further questions or concerns at this time. Diagnostics: CBC, CMP, COVID-19, strep, CXR Therapeutics: Promethazine with codeine 5 mL p.o. Prescription: Promethazine with codeine 5 mL every 4-6 hours as needed for cough. Impression: Bronchitis Plan: 1. You were evaluated today on an emergent basis. Your your complaints of cough, Voice hoarseness, and chest tightness was evaluated with lab work and a chest x-ray. You were not wheezy when I listen to your lungs. Your oxygenation is normal. This is most likely bronchitis which does not require a antibiotic. I will prescribe promethazine with codeine 5 mils every 4-6 hours as needed for cough. If you develop a fever or your symptoms change please return to the emergency department or follow-up with your primary care. 2. You can alternate Tylenol and ibuprofen as needed for pain and fever management. 3. We encourage you to follow up with your primary care provider and/or recommended specialist in the next few days for re-evaluation and further care/management. 4. If your symptoms should worsen, new symptoms develop or any of the signs and symptoms we discussed should arise please return to the emergency room or call 911 (if needed). Definitive disposition and diagnosis as appropriate pending reevaluation and review of above. - Related Data Allergies Allergy/AdvReac Type Severity Reaction Status Date / Time clarithromycin [From Biaxin] Allergy Hives Verified 11/03/20 16:17 Iodinated Contrast Media Allergy Difficulty Verified 11/03/20 16:17 [Iodinated Contrast Media - Breathing IV Dye] ketorolac Allergy Nausea and Verified 11/03/20 16:17 Vomiting ketorolac tromethamine Allergy Nausea and Verified 11/03/20 16:17 [From Toradol] Vomiting lorazepam [From Ativan] Allergy Change Verified 11/03/20 16:17 Mental Status NSAIDS (Non-Steroidal Allergy Stomach Verified 11/03/20 16:17 Anti-Inflamma Upset tramadol Allergy Nausea and Verified 11/03/20 16:17 Vomiting tramadol HCl [From Ultracet] Allergy Cannot Verified 11/03/20 16:17 Remember prednisone AdvReac Mild Anxiety Verified 11/03/20 16:18 Home Meds: Home Meds . [Unable to Verify Home Med List] 10/17/20 [History] Past Medical History - Past Health History Medical/Surgical History: Denies Medical/Surgical History HEENT History: Reports: Impaired Vision, Sinusitis Cardiovascular History: Reports: None Respiratory History: Reports: Asthma, Pneumonia, Recurrent Gastrointestinal History: Reports: Bowel Obstruction, Other (See Below) Other Gastrointestinal History: gastric bypass Genitourinary History: Reports: None LEAK DETECTOR History: Reports: Spontaneous Musculoskeletal History: Reports: None Neurological History: Reports: Headaches, Chronic, Other (See Below) Other Neuro History: pseudo tumor cerebri, dystonia Psychiatric History: Reports: Anxiety Endocrine/Metabolic History: Reports: None Other Endocrine/Metabolic History: hypoglycemic Hematologic History: Reports: Anemia Immunologic History: Reports: Other (See Below) Other Immunologic History: Dystonia Oncologic (Cancer) History: Reports: None Dermatologic History: Reports: None - Infectious Disease History Infectious Disease History: Reports: None Other Infectious Disease History: childhood - Past Surgical History Head Surgeries/Procedures: Reports: Shunt HEENT Surgical History: Reports: Adenoidectomy, Oral Surgery, Tonsillectomy Cardiovascular Surgical History: Reports: None Respiratory Surgical History: Reports: None GI Surgical History: Reports: None Other GI Surgeries/Procedures: spleenectomy Female Surgical History: Reports: None Endocrine Surgical History: Reports: None Neurological Surgical History: Reports: Other (See Below) Other Neurological Surgeries/Procedures: 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 ED EXAM, GENERAL - Physical Exam Exam: See Below (See dictation) Course - Vital Signs Last Recorded V/S: Last Vital Signs Temp 97.6 F 11/03/20 16:18 Pulse 85 11/03/20 19:08 Resp 17 11/03/20 19:08 BP 126/62 11/03/20 19:08 Pulse Ox 100 11/03/20 19:08 - Orders/Labs/Meds Orders: Active Orders 24 hr Category Date Time Status Saline Lock Insert [OM.PC] Stat Oth 11/03/20 16:35 Ordered Labs: Laboratory Tests 11/03/20 11/03/20 11/03/20 Range/Units 16:43 16:43 16:45 WBC 9.11 (4.0-11.0) K/uL RBC 4.79 (4.30-5.90) M/uL Hgb 13.6 (12.0-16.0) g/dL Hct 42.9 (36.0-46.0) % MCV 89.6 (80.0-98.0) fL MCH 28.4 (27.0-32.0) pg MCHC 31.7 (31.0-37.0) g/dL RDW Std Deviation EXTRACT WRINGER RDW Coeff of Saúl EXTRACT WRINGER Plt Count 297 (150-400) K/uL MPV 10.80 (7.40-12.00) fL Add Manual Diff YES Neutrophils % (Manual) 56 (48.0-80.0) % Lymphocytes % (Manual) 39 (16.0-40.0) % Monocytes % (Manual) 4 (0.0-15.0) % Eosinophils % (Manual) 1 (0.0-7.0) % Nucleated RBC % 0.0 /100WBC Absolute Seg Neuts 5.1 (1.4-5.7) Lymphocytes # (Manual) 3.6 H (0.6-2.4) Monocytes # (Manual) 0.4 (0.0-0.8) Eosinophils # (Manual) 0.1 (0.0-0.7) Nucleated RBCs # 0 K/uL Poikilocytosis 2+ MODERATE Anisocytosis 1+ SLIGHT Target Cells 1+ SLIGHT Stomatocytes 2+ MODERATE Elliptocytes 1+ SLIGHT Sodium 138 (136-145) mmol/L Potassium 3.3 L (3.5-5.1) mmol/L Chloride 102 (98-107) mmol/L Carbon Dioxide 25.7 (21.0-32.0) mmol/L BUN 7 (7.0-18.0) mg/dL Creatinine 0.9 (0.6-1.0) mg/dL Est Cr Clr Drug Dosing 63.86 mL/min Estimated GFR (MDRD) > 60.0 ml/min Glucose 98 (74-106) mg/dL Calcium 8.7 (8.5-10.1) mg/dL Total Bilirubin 0.5 (0.2-1.0) mg/dL AST 21 (15-37) IU/L ALT 18 (14-63) IU/L Alkaline Phosphatase 86 (46-116) U/L Total Protein 7.6 (6.4-8.2) g/dL Albumin 3.9 (3.4-5.0) g/dL Globulin 3.7 (2.6-4.0) g/dL Albumin/Globulin Ratio 1.1 (0.9-1.6) SARS-CoV-2 RNA ([place]) (NEGATIVE) Group A Strep (PCR) NOT DETECTED (NOT DETECT) 11/03/20 Range/Units 16:46 WBC (4.0-11.0) K/uL RBC (4.30-5.90) M/uL Hgb (12.0-16.0) g/dL Hct (36.0-46.0) % MCV (80.0-98.0) fL MCH (27.0-32.0) pg MCHC (31.0-37.0) g/dL RDW Std Deviation RDW Coeff of Saúl Plt Count (150-400) K/uL MPV (7.40-12.00) fL Add Manual Diff Neutrophils % (Manual) (48.0-80.0) % Lymphocytes % (Manual) (16.0-40.0) % Monocytes % (Manual) (0.0-15.0) % Eosinophils % (Manual) (0.0-7.0) % Nucleated RBC % /100WBC Absolute Seg Neuts (1.4-5.7) Lymphocytes # (Manual) (0.6-2.4) Monocytes # (Manual) (0.0-0.8) Eosinophils # (Manual) (0.0-0.7) Nucleated RBCs # K/uL Poikilocytosis Anisocytosis Target Cells Stomatocytes Elliptocytes Sodium (136-145) mmol/L Potassium (3.5-5.1) mmol/L Chloride (98-107) mmol/L Carbon Dioxide (21.0-32.0) mmol/L BUN (7.0-18.0) mg/dL Creatinine (0.6-1.0) mg/dL Est Cr Clr Drug Dosing mL/min Estimated GFR (MDRD) ml/min Glucose (74-106) mg/dL Calcium (8.5-10.1) mg/dL Total Bilirubin (0.2-1.0) mg/dL AST (15-37) IU/L ALT (14-63) IU/L Alkaline Phosphatase (46-116) U/L Total Protein (6.4-8.2) g/dL Albumin (3.4-5.0) g/dL Globulin (2.6-4.0) g/dL Albumin/Globulin Ratio (0.9-1.6) SARS-CoV-2 RNA ([place]) NEGATIVE (NEGATIVE) Group A Strep (PCR) (NOT DETECT) Meds: Medications Discontinued Medications Generic Name Dose Route Start Last Admin Trade Name Freq PRN Reason Stop Dose Admin Acetaminophen 1,000 mg 11/03/20 16:45 11/03/20 17:12 Acetaminophen 500 Mg Tab PO 11/03/20 16:46 1,000 mg ONETIME ONE Administration Diphenhydramine HCl 50 mg 11/03/20 16:38 11/03/20 16:45 Diphenhydramine 50 Mg/Ml Sdv IVPUSH 11/03/20 16:39 Not Given ONETIME ONE Metoclopramide HCl 10 mg 11/03/20 16:37 11/03/20 16:45 Metoclopramide 10 Mg/2 Ml Sdv IVPUSH 11/03/20 16:38 Not Given ONETIME ONE Promethazine HCl/Codeine 5 ml 11/03/20 18:49 11/03/20 19:07 Codeine/Promethazine 10-6.25 Mg/5 Ml Syrup 5 Ml Ud Cup PO 11/03/20 18:50 5 ml STAT STA Administration Sodium Chloride 10 ml 11/03/20 16:35 11/03/20 16:43 Sodium Chloride 0.9% 10 Ml Syringe FLUSH 10 ml ASDIRECTED PRN Administration Keep Vein Open Sodium Chloride 2.5 ml 11/03/20 16:35 11/03/20 16:43 Sodium Chloride 0.9% 2.5 Ml Syringe FLUSH 2.5 ml ASDIRECTED PRN Administration Keep Vein Open Departure - Departure Time of Disposition: 18:56 Disposition: Home, Self-Care 01 Condition: Good Clinical Impression: Bronchitis - Discharge Information *PRESCRIPTION DRUG MONITORING PROGRAM REVIEWED*: Not Applicable *COPY OF PRESCRIPTION DRUG MONITORING REPORT IN PATIENT TJ: Not Applicable Instructions: Acute Bronchitis, Adult, [id number] Referrals: Fior Angel NP [Primary Care Provider] - Forms: ED Department Discharge Additional Instructions: The following information is given to patients seen in the emergency department who are being discharged to home. This information is to outline your options for follow-up care. We provide all patients seen in our emergency department with a follow-up referral. The need for follow-up, as well as the timing and circumstances, are variable depending upon the specifics of your emergency department visit. If you don't have a primary care physician on staff, we will provide you with a referral. We always advise you to contact your personal physician following an emergency department visit to inform them of the circumstance of the visit and for follow-up with them and/or the need for any referrals to a consulting specialist. The emergency department will also refer you to a specialist when appropriate. This referral assures that you have the opportunity for follow-up care with a specialist. All of these measure are taken in an effort to provide you with optimal care, which includes your follow-up. Under all circumstances we always encourage you to contact your private physician who remains a resource for coordinating your care. When calling for follow-up care, please make the office aware that this follow-up is from your recent emergency room visit. If for any reason you are refused follow-up, please contact the [facility] Emergency Department at and asked to speak to the emergency department charge nurse. [facility] [address] [place] [id number] [id number] Plan: 1. You were evaluated today on an emergent basis. Your your complaints of cough, Voice hoarseness, and chest tightness was evaluated with lab work and a chest x-ray. You were not wheezy when I listen to your lungs. Your oxygenation is normal. This is most likely bronchitis which does not require a antibiotic. I will prescribe promethazine with codeine 5 mils every 4-6 hours as needed for cough. If you develop a fever or your symptoms change please return to the emergency department or follow-up with your primary care. 2. You can alternate Tylenol and ibuprofen as needed for pain and fever management. 3. We encourage you to follow up with your primary care provider and/or recommended specialist in the next few days for re-evaluation and further care/management. 4. If your symptoms should worsen, new symptoms develop or any of the signs and symptoms we discussed should arise please return to the emergency room or call 911 (if needed). Sepsis Event Note (ED) - Evaluation Sepsis Screening Result: No Definite Risk - Focused Exam Vital Signs: Vital Signs Temp Pulse Resp BP Pulse Ox 11/03/20 19:08 85 17 126/62 100 11/03/20 18:18 94 18 125/79 96 11/03/20 16:18 97.6 F 92 17 136/92 H 99 - My Orders Last 24 Hours: My Active Orders 11/03/20 16:35 Saline Lock Insert [OM.PC] Stat - Assessment/Plan Last 24 Hours: My Active Orders 11/03/20 16:35 Saline Lock Insert [OM.PC] Stat
[2020-11-03] MEDS ORDERED: Acetaminophen 500 MG Tab PO ONE (16:45)
[2020-11-03 17:27] LABS: BLOOD UREA NITROGEN,BUN 7 mg/dL (7.0-18.0); CARBON DIOXIDE,CO2 25.7 mmol/L (21.0-32.0); CHLORIDE,CL 102 mmol/L (98-107); GLUCOSE RANDOM 98 mg/dL (74-106); POTASSIUM,K 3.3 mmol/L (3.5-5.1); SODIUM,NA 138 mmol/L (136-145)
--- NOTE | 2020-11-03 17:56 | CR ---
INDICATION: Cough, shortness of breath for 4 days. History of asthma. TECHNIQUE: Chest 2 views. COMPARISON: Chest radiograph 01/16/2020. FINDINGS: No focal consolidation, pleural effusion, or pneumothorax. Normal heart size and pulmonary vascularity. The bones are unremarkable. Stable mild elevation of the right hemidiaphragm. Surgical clips left upper quadrant. IMPRESSION: No acute cardiopulmonary findings. Dictated by Indira Julio MD @ 11/03/2020 5:55:[address] Indira Julio @ Nov 03 2020 5:55PM
[2020-11-03] MEDS ORDERED: Codeine/Promethazine 10-6.25 MG/5 ML Syrup 5 ML UD Cup PO STA (18:49)
[2020-11-03 19:09] VITALS: BP 126/62; PULSE 85
== END 2020-11-03 19:12 | disposition home or self-care (01) ==
LOC: MW.ED 16:12
DX: J40 Bronchitis, not specified as acute or chronic (principal); Z91.041 Radiographic dye allergy status; Z88.1 Allergy status to other antibiotic agents; Z88.6 Allergy status to analgesic agent; Z88.5 Allergy status to narcotic agent; Z88.8 Allergy status to other drugs, medicaments and biological substances; Z20.822 Contact with and (suspected) exposure to COVID-19
CPT/HCPCS: 36415; 71046; 80053; 85025; 87651; 99285; A9270; U0002; 99284; J1200; J2765

== ENCOUNTER 2020-12-15 16:17 | Emergency (ER) | payer MEDICARE, MEDICAID ==
[2020-12-15] MEDS ORDERED: Orphenadrine 60 MG/2 ML Inj IM ONE (18:01)
--- NOTE | 2020-12-15 18:12 | EDM.PDOC ---
ED HPI GENERAL MEDICAL PROBLEM - General Chief Complaint: Back Pain or Injury Stated Complaint: BACK PAIN Time Seen by Provider: 12/15/20 17:48 Source of Information: Reports: Patient History Limitations: Reports: No Limitations - History of Present Illness INITIAL COMMENTS - FREE TEXT/NARRATIVE: HISTORY AND PHYSICAL: History of present illness: Patient is a 35-year-old female who presents to the emergency department with complaints of lower back pain which started after standing on her feet all day at work today. She does not identify any injury such as lifting or bending while at work. 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 She states that she had back issues like this many years ago but is unsure of what was done then. The patient states that she has degenerative joint disease. Patient denies any fever, chills, headache, change in vision, syncope or near syncope. Denies any chest pain, back pain, shortness of breath or cough. Denies any abdominal pain, nausea, vomiting, diarrhea, constipation or dysuria. Has not noted any blood in urine or stool. Patient has been eating and drinking appropriately. Review of systems: As per history of present illness and below otherwise all systems reviewed and negative. Past medical history: As per history of present illness and as reviewed below otherwise noncontributory. Surgical history: As per history of present illness and as reviewed below otherwise noncontributory. Social history: See social history for further information Family history: As per history of present illness and as reviewed below otherwise noncontributory. Physical exam: General: Well developed and well nourished. Alert and orientated x 3. Nontoxic in appearance and in no acute distress. Vital signs are stable and have been reviewed by me. Nursing notes were reviewed. HEENT: Atraumatic, normocephalic, pupils equal and reactive bilaterally, negative for conjunctival pallor or scleral icterus, mucous membranes moist, TMs normal bilaterally, throat clear, neck supple, nontender, trachea midline. No drooling or trismus noted. No meningeal signs. No hot potato voice noted. Lungs: Clear to auscultation bilaterally. No wheezes, rales, or rhonchi. Chest nontender. Normal work of breathing, no accessory muscles used. Heart: S1S2, regular rate and rhythm without overt murmur, gallops, or rubs. No JVD. No peripheral edema Abdomen: Soft, nondistended, nontender. Normoactive bowel sounds. Negative for masses or costovertebral tenderness. Skin: Intact, warm, dry. No lesions or rashes noted. Hematologic: No petechiae or purpra. Mucosa appropriate color and normal nail bed color and refill. Extremities: Atraumatic, painful straight leg raise, normal neurovascular, negative for cords or calf pain. Neuro: Awake, alert, oriented. Cranial nerves II through XII unremarkable. Cerebellum unremarkable. Motor and sensory unremarkable throughout. Exam nonfocal. Psychiatric: Mood and affect are appropriate. Normal thought process. Answering questions appropriately. Notes: *This patient was seen and evaluated during the 2019 SARS-CoV-2 novel coronavirus pandemic period. Community viral transmission is ongoing at time of this encounter and the emergency department is operating under pandemic response procedures. As stated above the patient is here for low back pain after standing on her feet all day as a bandsaw operator at the [employer]. Her exam just muscular in nature. The patient states that she has had a gastric bypass is not well take NSAIDs and does not tolerate prednisone at all. I will treat the patient's pain with Norflex milligrams IM. The patient states she cannot take any narcotics at this time as she is driving. I will send the patient home with a prescription for Norflex 1 every 4-6 hours as needed for pain #8 and send a prescription for Norflex 100 mg twice daily 7 days the patient should see her primary care provider in follow-up for possible physical therapy. The patient is agreeable with this discharge plan. I have talked with the patient about today's findings, in addition to providing specific details for plan of care. Reassessment at the time of disposition demonstrates that the patient is in no acute distress. The patient is stable for discharge, counseling was provided and we discussed in great detail signs and symptoms that would prompt them to return to the Emergency Department. Medication, follow up and supportive care measures were reviewed and discussed. Voices understanding and is agreeable to plan of care. Denies any further questions or concerns at this time. Therapeutics: Norflex 60 mg IM Prescription: Norflex 1 every 4-6 hours as needed for pain #8 and send a prescription for Norflex 100 mg twice daily 7 days Impression: Muscle spasm of the back Plan: 1. You were evaluated today on an emergent basis. Your plaints of low back pain after standing all day at work with no trauma appear to be muscular in nature. As you are driving and unable to take any NSAIDs due to your gastric bypass I have treated your pain with a muscle relaxer Norflex 60 mg intramuscularly. I will prescribe Norflex 100 mg to take twice a day for 7 days. I would follow-up with your primary care on Friday to talk about physical therapy as this is the best treatment. You can use heat or cold whichever one provides comfort. Once you are pretty much pain-free do some stretches. And ensure that you can move and stretch every several hours while at work. 2. You can alternate Tylenol and ibuprofen as needed for pain and fever management. 3. We encourage you to follow up with your primary care provider and/or recommended specialist in the next few days for re-evaluation and further care/management. 4. If your symptoms should worsen, new symptoms develop or any of the signs and symptoms we discussed should arise please return to the emergency room or call 911 (if needed). Definitive disposition and diagnosis as appropriate pending reevaluation and review of above. bilateral lower back Pain Score (Numeric/FACES): 8 - Related Data Allergies Allergy/AdvReac Type Severity Reaction Status Date / Time clarithromycin [From Biaxin] Allergy Hives Verified 12/15/20 17:43 Iodinated Contrast Media Allergy Difficulty Verified 12/15/20 17:43 [Iodinated Contrast Media - Breathing IV Dye] ketorolac Allergy Nausea and Verified 12/15/20 17:43 Vomiting ketorolac tromethamine Allergy Nausea and Verified 12/15/20 17:43 [From Toradol] Vomiting lorazepam [From Ativan] Allergy Change Verified 12/15/20 17:43 Mental Status NSAIDS (Non-Steroidal Allergy Stomach Verified 12/15/20 17:43 Anti-Inflamma Upset tramadol Allergy Nausea and Verified 12/15/20 17:43 Vomiting tramadol HCl [From Ultracet] Allergy Cannot Verified 12/15/20 17:43 Remember prednisone AdvReac Mild Anxiety Verified 12/15/20 17:43 Home Meds: Home Meds Orphenadrine [Norflex] 100 mg PO BID PRN 5 Days #10 tab 12/15/20 [Rx] Past Medical History - Past Health History Medical/Surgical History: Denies Medical/Surgical History HEENT History: Reports: Impaired Vision, Sinusitis Cardiovascular History: Reports: None Respiratory History: Reports: Asthma, Pneumonia, Recurrent Gastrointestinal History: Reports: Bowel Obstruction, Other (See Below) Other Gastrointestinal History: gastric bypass Genitourinary History: Reports: None 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: 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 Musculoskeletal History: Reports: None Neurological History: Reports: Headaches, Chronic, Other (See Below) Other Neuro History: pseudo tumor cerebri, dystonia Psychiatric History: Reports: Anxiety Endocrine/Metabolic History: Reports: None Other Endocrine/Metabolic History: hypoglycemic Hematologic History: Reports: Anemia Immunologic History: Reports: Other (See Below) Other Immunologic History: Dystonia Oncologic (Cancer) History: Reports: None Dermatologic History: Reports: None - Infectious Disease History Infectious Disease History: Reports: None Other Infectious Disease History: childhood - Past Surgical History Head Surgeries/Procedures: Reports: Shunt HEENT Surgical History: Reports: Adenoidectomy, Oral Surgery, Tonsillectomy Cardiovascular Surgical History: Reports: None Respiratory Surgical History: Reports: None GI Surgical History: Reports: None Other GI Surgeries/Procedures: spleenectomy Female Surgical History: Reports: None Endocrine Surgical History: Reports: None Neurological Surgical History: Reports: Other (See Below) Other Neurological Surgeries/Procedures: 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, to correct pseudotumor; since removed Musculoskeletal Surgical History: Reports: None Other Musculoskeletal Surgeries/Procedures:: L knee surgery Oncologic Surgical History: Reports: None Dermatological Surgical History: Reports: None Social & Family History - Family History Family Medical History: No Pertinent Family History - Tobacco Use Tobacco Use Status *Q: Never Tobacco User Second Hand Smoke Exposure: No - Caffeine Use Caffeine Use: Reports: None - Alcohol Use Days Per Week of Alcohol Use: 2 Number of Drinks Per Day: 1 Total Drinks Per Week: 2 - Recreational Drug Use Recreational Drug Use: No ED ROS GENERAL - Review of Systems Review Of Systems: Comprehensive ROS is negative, except as noted in HPI. ED EXAM,LOWER BACK PAIN/INJURY - Physical Exam Exam: See Below (See dictation) Course - Vital Signs Last Recorded V/S: Last Vital Signs Temp 98.2 F 12/15/20 18:44 Pulse 78 12/15/20 18:44 Resp 18 12/15/20 18:44 BP 118/72 12/15/20 18:44 Pulse Ox 98 12/15/20 18:44 - Orders/Labs/Meds Meds: Medications Discontinued Medications Generic Name Dose Route Start Last Admin Trade Name Freq PRN Reason Stop Dose Admin Orphenadrine Citrate 60 mg 12/15/20 18:01 12/15/20 18:13 Orphenadrine 60 Mg/2 Ml Inj IM 12/15/20 18:02 60 mg ONETIME ONE Administration Departure - Departure Time of Disposition: 18:30 Disposition: Home, Self-Care 01 Condition: Good Clinical Impression: Muscle spasm of back - Discharge Information *PRESCRIPTION DRUG MONITORING PROGRAM REVIEWED*: No *COPY OF PRESCRIPTION DRUG MONITORING REPORT IN PATIENT TJ: No Prescriptions: Orphenadrine [Norflex] 100 mg PO BID PRN 5 Days #10 tab PRN Reason: Muscle Spasm - Painful Instructions: Muscle Cramps and Spasms, [id number] Referrals: Fior Angel NP [Primary Care Provider] - Forms: ED Department Discharge Additional Instructions: The following information is given to patients seen in the emergency department who are being discharged to home. This information is to outline your options for follow-up care. We provide all patients seen in our emergency department with a follow-up referral. The need for follow-up, as well as the timing and circumstances, are variable depending upon the specifics of your emergency department visit. If you don't have a primary care physician on staff, we will provide you with a referral. We always advise you to contact your personal physician following an emergency department visit to inform them of the circumstance of the visit and for follow-up with them and/or the need for any referrals to a consulting specialist. The emergency department will also refer you to a specialist when appropriate. This referral assures that you have the opportunity for follow-up care with a specialist. All of these measure are taken in an effort to provide you with optimal care, which includes your follow-up. Under all circumstances we always encourage you to contact your private physician who remains a resource for coordinating your care. When calling for follow-up care, please make the office aware that this follow-up is from your recent emergency room visit. If for any reason you are refused follow-up, please contact the [facility] Emergency Department at and asked to speak to the emergency department charge nurse. [facility] [address] [place] [id number] [facility] [address] [place] [address] Plan: 1. You were evaluated today on an emergent basis. Your plaints of low back pain after standing all day at work with no trauma appear to be muscular in nature. As you are driving and unable to take any NSAIDs due to your gastric bypass I have treated your pain with a muscle relaxer Norflex 60 mg intramuscularly. I will prescribe Norflex 100 mg to take twice a day for 7 days. I would follow-up with your primary care on Friday to talk about physical therapy as this is the best treatment. You can use heat or cold whichever one provides comfort. Once you are pretty much pain-free do some stretches. And ensure that you can move and stretch every several hours while at work. 2. You can alternate Tylenol and ibuprofen as needed for pain and fever management. 3. We encourage you to follow up with your primary care provider and/or recommended specialist in the next few days for re-evaluation and further care/management. 4. If your symptoms should worsen, new symptoms develop or any of the signs and symptoms we discussed should arise please return to the emergency room or call 911 (if needed). Sepsis Event Note (ED) - Evaluation Sepsis Screening Result: No Definite Risk - Focused Exam Vital Signs: Vital Signs Temp Pulse Resp BP Pulse Ox 12/15/20 18:44 98.2 F 78 18 118/72 98 12/15/20 18:21 74 18 122/72 98 12/15/20 17:38 98.1 F 96 18 138/88 98
[2020-12-15 19:09] VITALS: BP 118/72; PULSE 78
== END 2020-12-15 18:45 | disposition home or self-care (01) ==
LOC: MW.ED 16:17
DX: M62.830 Muscle spasm of back (principal); Z88.5 Allergy status to narcotic agent; Z88.8 Allergy status to other drugs, medicaments and biological substances; Z88.6 Allergy status to analgesic agent; Z91.041 Radiographic dye allergy status; Z88.1 Allergy status to other antibiotic agents
CPT/HCPCS: 96372; 99283; J2360

== ENCOUNTER 2020-12-22 13:20 | Emergency (ER) | payer MEDICARE, MEDICAID ==
[2020-12-22] MEDS ORDERED: Acetaminophen 500 MG Tab PO ONE (13:31)
--- NOTE | 2020-12-22 13:36 | EDM.PDOC ---
ED HPI GENERAL MEDICAL PROBLEM - General Chief Complaint: General Stated Complaint: HEADACHE/DIZZINESS/DIFFICULTY SPEAKING Time Seen by Provider: 12/22/20 13:24 Source of Information: Reports: Patient History Limitations: Reports: No Limitations - History of Present Illness INITIAL COMMENTS - FREE TEXT/NARRATIVE: Patient is a 35-year-old female with history of dystonia presents today for confusion. Patient she had an episode of dystonia and afterwards she felt like she was drowsy and had a headache. States she normally does not get that other dystonia. She is able to move all extremity and drove here and cannot see clearly but she states she feels foggy. Patient denies any fever chills or head injury. She denies to getting drugs and or alcohol. - Related Data Allergies Allergy/AdvReac Type Severity Reaction Status Date / Time clarithromycin [From Biaxin] Allergy Hives Verified 12/22/20 13:25 Iodinated Contrast Media Allergy Difficulty Verified 12/22/20 13:25 [Iodinated Contrast Media - Breathing IV Dye] ketorolac Allergy Nausea and Verified 12/22/20 13:25 Vomiting ketorolac tromethamine Allergy Nausea and Verified 12/22/20 13:25 [From Toradol] Vomiting lorazepam [From Ativan] Allergy Change Verified 12/22/20 13:25 Mental Status NSAIDS (Non-Steroidal Allergy Stomach Verified 12/22/20 13:25 Anti-Inflamma Upset tramadol Allergy Nausea and Verified 12/22/20 13:25 Vomiting tramadol HCl [From Ultracet] Allergy Cannot Verified 12/22/20 13:25 Remember prednisone AdvReac Mild Anxiety Verified 12/22/20 13:25 Home Meds: Home Meds Orphenadrine [Norflex] 100 mg PO BID PRN 5 Days #10 tab 12/15/20 [Rx] Past Medical History - Past Health History Medical/Surgical History: Denies Medical/Surgical History HEENT History: Reports: Impaired Vision, Sinusitis Cardiovascular History: Reports: None Respiratory History: Reports: Asthma, Pneumonia, Recurrent Gastrointestinal History: Reports: Bowel Obstruction, Other (See Below) Other Gastrointestinal History: gastric bypass Genitourinary History: Reports: None 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 Musculoskeletal History: Reports: None Neurological History: Reports: Headaches, Chronic, Other (See Below) Other Neuro History: pseudo tumor cerebri, dystonia Psychiatric History: Reports: Anxiety Endocrine/Metabolic History: Reports: None Other Endocrine/Metabolic History: hypoglycemic Hematologic History: Reports: Anemia Immunologic History: Reports: Other (See Below) Other Immunologic History: Dystonia Oncologic (Cancer) History: Reports: None Dermatologic History: Reports: None - Infectious Disease History Infectious Disease History: Reports: None Other Infectious Disease History: childhood - Past Surgical History Head Surgeries/Procedures: Reports: Shunt HEENT Surgical History: Reports: Adenoidectomy, Oral Surgery, Tonsillectomy Cardiovascular Surgical History: Reports: None Respiratory Surgical History: Reports: None GI Surgical History: Reports: None Other GI Surgeries/Procedures: spleenectomy Female Surgical History: Reports: None Endocrine Surgical History: Reports: None Neurological Surgical History: Reports: Other (See Below) Other Neurological Surgeries/Procedures: 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, to correct pseudotumor; since removed Musculoskeletal Surgical History: Reports: None Other Musculoskeletal Surgeries/Procedures:: L knee surgery Oncologic Surgical History: Reports: None Dermatological Surgical History: Reports: None Social & Family History - Family History Family Medical History: No Pertinent Family History - Tobacco Use Tobacco Use Status *Q: Never Tobacco User - Caffeine Use Caffeine Use: Reports: None - Recreational Drug Use Recreational Drug Use: No ED ROS GENERAL - Review of Systems Review Of Systems: See Below Constitutional: Reports: No Symptoms HEENT: Reports: No Symptoms Respiratory: Reports: No Symptoms Cardiovascular: Reports: No Symptoms Endocrine: Reports: No Symptoms GI/Abdominal: Reports: No Symptoms : Reports: No Symptoms Musculoskeletal: Reports: No Symptoms Skin: Reports: No Symptoms Neurological: Reports: Confusion Psychiatric: Reports: No Symptoms Hematologic/Lymphatic: Reports: No Symptoms Immunologic: Reports: No Symptoms ED EXAM, GENERAL - Physical Exam Exam: See Below Exam Limited By: No Limitations General Appearance: Alert Respiratory/Chest: No Respiratory Distress, Lungs Clear Cardiovascular: Normal Peripheral Pulses, Regular Rate, Rhythm GI/Abdominal: Normal Bowel Sounds, Soft, Non-Tender Neurological: Alert, Oriented, CN II-XII Intact, Normal Cognition, Normal Gait Course - Vital Signs Last Recorded V/S: Last Vital Signs Temp 96.8 F L 12/22/20 15:03 Pulse 80 12/22/20 15:03 Resp 20 12/22/20 15:03 BP 126/69 12/22/20 15:03 Pulse Ox 92 L 12/22/20 15:03 - Orders/Labs/Meds Labs: Laboratory Tests 12/22/20 12/22/20 12/22/20 Range/Units 13:43 13:43 13:43 WBC 6.51 (4.0-11.0) K/uL RBC 4.40 (4.30-5.90) M/uL Hgb 13.4 (12.0-16.0) g/dL Hct 40.3 (36.0-46.0) % MCV 91.6 (80.0-98.0) fL MCH 30.5 (27.0-32.0) pg MCHC 33.3 (31.0-37.0) g/dL RDW Std Deviation 63.3 H (28.0-62.0) fl RDW Coeff of Saúl 19 H (11.0-15.0) % Plt Count 300 (150-400) K/uL MPV 10.90 (7.40-12.00) fL Neut % (Auto) 44.1 L (48.0-80.0) % Lymph % (Auto) 42.1 H (16.0-40.0) % Hawkins % (Auto) 9.2 (0.0-15.0) % Eos % (Auto) 2.8 (0.0-7.0) % Baso % (Auto) 1.8 H (0.0-1.5) % Neut # (Auto) 2.9 (1.4-5.7) K/uL Lymph # (Auto) 2.7 H (0.6-2.4) K/uL Hawkins # (Auto) 0.6 (0.0-0.8) K/uL Eos # (Auto) 0.2 (0.0-0.7) K/uL Baso # (Auto) 0.1 (0.0-0.1) K/uL Nucleated RBC % 0.0 /100WBC Nucleated RBCs # 0 K/uL Sodium 142 (136-145) mmol/L Potassium 4.3 (3.5-5.1) mmol/L Chloride 105 (98-107) mmol/L Carbon Dioxide 24.1 (21.0-32.0) mmol/L BUN 9 (7.0-18.0) mg/dL Creatinine 0.7 (0.6-1.0) mg/dL Est Cr Clr Drug Dosing 102.86 mL/min Estimated GFR (MDRD) > 60.0 ml/min Glucose 90 (74-106) mg/dL Calcium 8.5 (8.5-10.1) mg/dL Total Bilirubin 0.4 (0.2-1.0) mg/dL AST 19 (15-37) IU/L ALT 14 (14-63) IU/L Alkaline Phosphatase 71 (46-116) U/L Total Protein 6.9 (6.4-8.2) g/dL Albumin 3.5 (3.4-5.0) g/dL Globulin 3.4 (2.6-4.0) g/dL Albumin/Globulin Ratio 1.0 (0.9-1.6) HCG, Qual NEGATIVE (NEG) Meds: Medications Discontinued Medications Generic Name Dose Route Start Last Admin Trade Name Freq PRN Reason Stop Dose Admin Acetaminophen 1,000 mg 12/22/20 13:31 12/22/20 14:07 Acetaminophen 500 Mg Tab PO 12/22/20 13:32 1,000 mg ONETIME ONE Administration - Re-Assessments/Exams Free Text/Narrative Re-Assessment/Exam: 12/22/20 16:[address] negative patient headache improved with Tylenol patient will be discharged home. Departure - Departure Time of Disposition: 16:00 Disposition: Home, Self-Care 01 Condition: Good Clinical Impression: Head ache - Discharge Information *PRESCRIPTION DRUG MONITORING PROGRAM REVIEWED*: Not Applicable *COPY OF PRESCRIPTION DRUG MONITORING REPORT IN PATIENT TJ: Not Applicable Instructions: General Headache Without Cause Forms: ED Department Discharge Additional Instructions: The following information is given to patients seen in the emergency department who are being discharged to home. This information is to outline your options for follow-up care. We provide all patients seen in our emergency department with a follow-up referral. The need for follow-up, as well as the timing and circumstances, are variable depending upon the specifics of your emergency department visit. If you don't have a primary care physician on staff, we will provide you with a referral. We always advise you to contact your personal physician following an emergency department visit to inform them of the circumstance of the visit and for follow-up with them and/or the need for any referrals to a consulting specialist. The emergency department will also refer you to a specialist when appropriate. This referral assures that you have the opportunity for follow-up care with a specialist. All of these measure are taken in an effort to provide you with optimal care, which includes your follow-up. Under all circumstances we always encourage you to contact your private physician who remains a resource for coordinating your care. When calling for follow-up care, please make the office aware that this follow-up is from your recent emergency room visit. If for any reason you are refused follow-up, please contact the [facility] Emergency Department at and asked to speak to the emergency department charge nurse. Please follow up with your primary care physician. If you do not have a primary care physician, see below: [facility] [address] [place] [id number] [address] [facility] [address] [place] [address] You were seen today for a headache and also feeling drowsy after having 1 your dystonia episodes. We did CT scans of your head and also obtain labs are within normal limits. The Tylenol helped improve your headache. We recommend you follow-up to primary care physician if you have any other concerning signs or symptoms please return to ED immediately. Sepsis Event Note (ED) - Evaluation Sepsis Screening Result: No Definite Risk - Focused Exam Vital Signs: Vital Signs Temp Pulse Resp BP Pulse Ox 12/22/20 15:03 96.8 F L 80 20 126/69 92 L 12/22/20 13:27 98.1 F 89 16 147/95 H 99 - Assessment/Plan Plan: Patient is a 35-year-old female who presents today for confusion. Patient she had dystonia reaction and has been body cramps since resolved she now has a headache as well. Patient exam neurologically intact has no signs of speech does not seem confused. Will obtain labs CT head and reassess.
[2020-12-22 14:23] LABS: BLOOD UREA NITROGEN,BUN 9 mg/dL (7.0-18.0); CARBON DIOXIDE,CO2 24.1 mmol/L (21.0-32.0); CHLORIDE,CL 105 mmol/L (98-107); GLUCOSE RANDOM 90 mg/dL (74-106); POTASSIUM,K 4.3 mmol/L (3.5-5.1); SODIUM,NA 142 mmol/L (136-145)
--- NOTE | 2020-12-22 15:56 | CT ---
INDICATION: Headache, difficulty speaking and ambulating TECHNIQUE: CT head without contrast. COMPARISON: January 16, 2020 FINDINGS: CSF spaces: Within normal limits for age. Brain parenchyma: The pleitez-white differentiation is normal. No sign of mass, hemorrhage, or midline shift. Skull base and calvarium: The visualized paranasal sinuses and mastoid air cells demonstrate no acute or significant findings. The visualized orbits are grossly unremarkable. No skull fractures. Bilateral frontal davey holes. IMPRESSION: No acute abnormality. Please note that all CT scans at this facility use dose modulation, iterative reconstruction, and/or weight-based dosing when appropriate to reduce radiation dose to as low as reasonably achievable. Dictated by Sarah Araujo MD @ 12/22/2020 3:54:[address] Sarah Araujo @ Dec 22 2020 3:54PM
[2020-12-22 16:09] VITALS: BP 124/83; PULSE 75
== END 2020-12-22 16:09 | disposition home or self-care (01) ==
LOC: MW.ED 13:20
DX: R51.9 Headache, unspecified (principal); Z88.5 Allergy status to narcotic agent; Z88.6 Allergy status to analgesic agent; Z91.041 Radiographic dye allergy status; Z88.1 Allergy status to other antibiotic agents
CPT/HCPCS: 36415; 70450; 80053; 84703; 85025; 99285; A9270

== ENCOUNTER 2021-01-16 09:13 | Emergency (ER) | payer MEDICARE, MEDICAID ==
--- NOTE | 2021-01-16 10:12 | EDM.PDOC ---
ED HPI GENERAL MEDICAL PROBLEM - General Chief Complaint: ENT Problem Stated Complaint: sore throat cough Time Seen by Provider: 01/16/21 09:14 Source of Information: Reports: Patient History Limitations: Reports: No Limitations - History of Present Illness INITIAL COMMENTS - FREE TEXT/NARRATIVE: HISTORY AND PHYSICAL: History of present illness: Patient is a 35-year-old female who presents to the emergency room with complaints of sore throat, sinus congestion/drainage and cough since Friday. She states she frequently gets sinusitis and bronchitis and is concerned she nee ds antibiotics. Describes the cough as a dry nonproductive cough. She has no concerns for COVID-19. Patient denies any fever, chills, headache, change in vision, syncope or near syncope. Denies any chest pain, back pain, shortness of breath or cough. Denies any GI or symptoms. No concern for . Patient has been eating and drinking appropriately. Review of systems: As per history of present illness and below otherwise all systems reviewed and negative. Past medical history: As per history of present illness and as reviewed below otherwise noncontributory. Surgical history: As per history of present illness and as reviewed below otherwise noncontributory. Social history: See social history for further information Family history: As per history of present illness and as reviewed below otherwise noncontributory. Physical exam: General: Well developed and well nourished 35-year-old female. Alert and orientated x 3. Nontoxic in appearance and in no acute distress. Vital signs are stable and have been reviewed by me. Nursing notes were reviewed. HEENT: Atraumatic, normocephalic, pupils equal and reactive bilaterally, negative for conjunctival pallor or scleral icterus, mucous membranes moist, bilateral maxillary sinus tenderness to palpation, TMs normal bilaterally, throat erythematous without exudate or soft tissue swelling, neck supple, nontender, trachea midline. No drooling or trismus noted. No meningeal signs. No hot potato voice noted. Lungs: Clear to auscultation bilaterally. No wheezes, rales, or rhonchi. Chest nontender. Normal work of breathing, no accessory muscles used. Heart: S1S2, regular rate and rhythm without overt murmur, gallops, or rubs. No JVD. No peripheral edema Abdomen: Soft, nondistended, nontender. Skin: Intact, warm, dry. No lesions or rashes noted. Hematologic: No petechiae or purpra. Mucosa appropriate color and normal nail bed color and refill. Extremities: Atraumatic, moves all extremities per self without difficulty or deficits, negative for cords or calf pain. Neurovascular unremarkable. Neuro: Awake, alert, oriented. Cranial nerves II through XII unremarkable. Cerebellum unremarkable. Motor and sensory unremarkable throughout. Exam nonfocal. Psychiatric: Mood and affect are appropriate. Normal thought process. Answering questions appropriately. Notes: *This patient was seen and evaluated during the 2019 SARS-CoV-2 novel coronavirus pandemic period. Community viral transmission is ongoing at time of this encounter and the emergency department is operating under pandemic response procedures. Negative strep and chest x-ray readings. She would like to be treated for her sinusitis. I have talked with the patient about today's findings, in addition to providing specific details for plan of care. Reassessment at the time of disposition demonstrates that the patient is in no acute distress. The patient is stable for discharge, counseling was provided and we discussed in great detail signs and symptoms that would prompt them to return to the Emergency Department. Medication, follow up and supportive care measures were reviewed and discussed. Voices understanding and is agreeable to plan of care. Denies any further questions or concerns at this time. Diagnostics: Strep Therapeutics: None Prescription: Augmentin Impression: Sinusitis Plan: 1. You were evaluated today on an emergent basis. Your strep and chest x-ray are normal. 2. You can alternate Tylenol and ibuprofen as needed for pain and fever management. 3. We encourage you to follow up with your primary care provider and/or recommended specialist in the next few days for re-evaluation and further care/management. 4. If your symptoms should worsen, new symptoms develop or any of the signs and symptoms we discussed should arise please return to the emergency room or call 911 (if needed). Definitive disposition and diagnosis as appropriate pending reevaluation and review of above. headache Pain Score (Numeric/FACES): 4 - Related Data Allergies Allergy/AdvReac Type Severity Reaction Status Date / Time clarithromycin [From Biaxin] Allergy Hives Verified 01/16/21 10:09 Iodinated Contrast Media Allergy Difficulty Verified 01/16/21 10:09 [Iodinated Contrast Media - Breathing IV Dye] ketorolac Allergy Nausea and Verified 01/16/21 10:09 Vomiting ketorolac tromethamine Allergy Nausea and Verified 01/16/21 10:09 [From Toradol] Vomiting lorazepam [From Ativan] Allergy Change Verified 01/16/21 10:09 Mental Status NSAIDS (Non-Steroidal Allergy Stomach Verified 01/16/21 10:09 Anti-Inflamma Upset tramadol Allergy Nausea and Verified 01/16/21 10:09 Vomiting tramadol HCl [From Ultracet] Allergy Cannot Verified 01/16/21 10:09 Remember prednisone AdvReac Mild Anxiety Verified 01/16/21 10:09 Home Meds: Home Meds . 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 Musculoskeletal History: Reports: None Neurological History: Reports: Headaches, Chronic, Other (See Below) Other Neuro History: pseudo tumor cerebri, dystonia Psychiatric History: Reports: Anxiety Endocrine/Metabolic History: Reports: None Other Endocrine/Metabolic History: hypoglycemic Hematologic History: Reports: Anemia Immunologic History: Reports: Other (See Below) Other Immunologic History: Dystonia Oncologic (Cancer) History: Reports: None Dermatologic History: Reports: None - Infectious Disease History Infectious Disease History: Reports: None Other Infectious Disease History: childhood - Past Surgical History Head Surgeries/Procedures: Reports: Shunt HEENT Surgical History: Reports: Adenoidectomy, Oral Surgery, Tonsillectomy Cardiovascular Surgical History: Reports: None Respiratory Surgical History: Reports: None GI Surgical History: Reports: None Other GI Surgeries/Procedures: spleenectomy Female Surgical History: Reports: None Endocrine Surgical History: Reports: None Neurological Surgical History: Reports: Other (See Below) Other Neurological Surgeries/Procedures: 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 ED EXAM, ENT - Physical Exam Exam: See Below (See dictation) Course - Vital Signs Last Recorded V/S: Last Vital Signs Temp 97.1 F 01/16/21 10:09 Pulse 95 01/16/21 10:09 Resp 18 01/16/21 10:09 BP 142/97 H 01/16/21 10:09 Pulse Ox 97 01/16/21 10:09 - Orders/Labs/Meds Orders: Active Orders 24 hr Category Date Time Status Chest 1V Frontal [CR] Stat Exams 01/16/21 10:12 Taken Labs: Laboratory Tests 01/16/21 Range/Units 10:25 Group A Strep (PCR) NOT DETECTED (NOT DETECT) Departure - Departure Time of Disposition: 11:07 Disposition: Home, Self-Care 01 Clinical Impression: Sinusitis Qualifiers: Sinusitis location: maxillary Chronicity: acute Recurrence: not specified as recurrent Qualified Code(s): J01.00 - Acute maxillary sinusitis, unspecified - Discharge Information Referrals: Fior Angel NP [Primary Care Provider] - Forms: ED Department Discharge Additional Instructions: The following information is given to patients seen in the emergency department who are being discharged to home. This information is to outline your options for follow-up care. We provide all patients seen in our emergency department with a follow-up referral. The need for follow-up, as well as the timing and circumstances, are variable depending upon the specifics of your emergency department visit. If you don't have a primary care physician on staff, we will provide you with a referral. We always advise you to contact your personal physician following an emergency department visit to inform them of the circumstance of the visit and for follow-up with them and/or the need for any referrals to a consulting specialist. The emergency department will also refer you to a specialist when appropriate. This referral assures that you have the opportunity for follow-up care with a specialist. All of these measure are taken in an effort to provide you with optimal care, which includes your follow-up. Under all circumstances we always encourage you to contact your private physician who remains a resource for coordinating your care. When calling for follow-up care, please make the office aware that this follow-up is from your recent emergency room visit. If for any reason you are refused follow-up, please contact the Emergency Department at and asked to speak to the emergency department charge nurse. Primary Care [address] [place] [address] [facility] [address] [place] [id number] Thank you for choosing the [facility] emergency department in [place] for your medical needs today. It was a pleasure caring for you. Today you were seen in the emergency department for sinusitis. 1. You were evaluated today on an emergent basis. Your strep and chest x-ray are normal. 2. You can alternate Tylenol and ibuprofen as needed for pain and fever management. 3. We encourage you to follow up with your primary care provider and/or recommended specialist in the next few days for re-evaluation and further care/management. 4. If your symptoms should worsen, new symptoms develop or any of the signs and symptoms we discussed should arise please return to the emergency room or call 911 (if needed). Sepsis Event Note (ED) - Focused Exam Vital Signs: Vital Signs Temp Pulse Resp BP Pulse Ox 01/16/21 10:09 97.1 F 95 18 142/97 H 97 - My Orders Last 24 Hours: My Active Orders 01/16/21 10:12 Chest 1V Frontal [CR] Stat - Assessment/Plan Last 24 Hours: My Active Orders 01/16/21 10:12 Chest 1V Frontal [CR] Stat
[2021-01-16 11:22] VITALS: BP 143/97; PULSE 92
--- NOTE | 2021-01-16 11:30 | CR ---
INDICATION: Cough TECHNIQUE: Chest 1 views COMPARISON: 11/03/2020 FINDINGS: Cardiovascular and mediastinum: Heart size and vasculature are normal in caliber and appearance. Lungs and pleural spaces: Lungs are clear. No sign of infiltrate or mass. No sign of pleural effusion. No pneumothorax. Bones and soft tissues: No significant findings. IMPRESSION: Negative chest. No finding to explain cough. Dictated by David Bains MD @ 01/16/2021 11:28:[address] David Bains @ Jan 16 2021 11:28AM
== END 2021-01-16 11:23 | disposition home or self-care (01) ==
LOC: MW.ED 09:13
DX: J01.00 Acute maxillary sinusitis, unspecified (principal); J45.909 Unspecified asthma, uncomplicated; Z88.1 Allergy status to other antibiotic agents; Z91.041 Radiographic dye allergy status; Z88.5 Allergy status to narcotic agent; Z88.8 Allergy status to other drugs, medicaments and biological substances; Z88.6 Allergy status to analgesic agent
CPT/HCPCS: 71045; 71045-26; 87651-QW; 99283-25

== ENCOUNTER 2021-01-17 06:37 | Emergency (ER) | payer MEDICARE, MEDICAID ==
--- NOTE | 2021-01-17 06:54 | EDM.PDOC ---
ED HPI GENERAL MEDICAL PROBLEM - General Chief Complaint: ENT Problem Stated Complaint: SORE THROAT, COUGH, LOSS OF VOICE Time Seen by Provider: 01/17/21 06:53 Source of Information: Reports: Patient History Limitations: Reports: No Limitations - History of Present Illness INITIAL COMMENTS - FREE TEXT/NARRATIVE: 35yoF PMHx splenectomy presents for sore throat and nasal congestion. Patient was seen yesterday for similar symptoms and diagnosed with sinusitis and started on Augmentin. She notes that symptoms continue and now she feels like she has lost her voice. She had subjective fevers last night. No difficulty breathing. Bilateral Ear Pain Score (Numeric/FACES): 5 - Related Data Allergies Allergy/AdvReac Type Severity Reaction Status Date / Time clarithromycin [From Biaxin] Allergy Hives Verified 01/17/21 06:57 Iodinated Contrast Media Allergy Difficulty Verified 01/17/21 06:57 [Iodinated Contrast Media - Breathing IV Dye] ketorolac Allergy Nausea and Verified 01/17/21 06:57 Vomiting ketorolac tromethamine Allergy Nausea and Verified 01/17/21 06:57 [From Toradol] Vomiting lorazepam [From Ativan] Allergy Change Verified 01/17/21 06:57 Mental Status NSAIDS (Non-Steroidal Allergy Stomach Verified 01/17/21 06:57 Anti-Inflamma Upset tramadol Allergy Nausea and Verified 01/17/21 06:57 Vomiting tramadol HCl [From Ultracet] Allergy Cannot Verified 01/17/21 06:57 Remember prednisone AdvReac Mild Anxiety Verified 01/17/21 06:57 Home Meds: Home Meds Amoxicillin/Clavulanate K [Augmentin 875-125 MG] 1 tab PO BID 10 Days #20 tablet 01/16/21 [Rx] Past Medical History - Past Health History Medical/Surgical History: Denies Medical/Surgical History HEENT History: Reports: Impaired Vision, Sinusitis Cardiovascular History: Reports: None Respiratory History: Reports: Asthma, Bronchitis, Recurrent, Pneumonia, Recurrent Gastrointestinal History: Reports: Bowel Obstruction, Other (See Below) Other Gastrointestinal History: gastric bypass Genitourinary History: Reports: None 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 Musculoskeletal History: Reports: None Neurological History: Reports: Headaches, Chronic, Other (See Below) Other Neuro History: pseudo tumor cerebri, dystonia Psychiatric History: Reports: Anxiety Endocrine/Metabolic History: Reports: Other (See Below) Other Endocrine/Metabolic History: hypoglycemic Hematologic History: Reports: Anemia Immunologic History: Reports: Other (See Below) Other Immunologic History: Dystonia Oncologic (Cancer) History: Reports: None Dermatologic History: Reports: None - Infectious Disease History Infectious Disease History: Reports: Chicken Pox Other Infectious Disease History: childhood - Past Surgical History Head Surgeries/Procedures: Reports: Shunt HEENT Surgical History: Reports: Adenoidectomy, Oral Surgery, Tonsillectomy Cardiovascular Surgical History: Reports: None Respiratory Surgical History: Reports: None GI Surgical History: Reports: Other (See Below) Other GI Surgeries/Procedures: spleenectomy Female Surgical History: Reports: None Endocrine Surgical History: Reports: None Neurological Surgical History: Reports: Other (See Below) Other Neurological Surgeries/Procedures: 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 ED EXAM, GENERAL - Physical Exam Exam: See Below Exam Limited By: No Limitations General Appearance: Alert, WD/WN, No Apparent Distress Ears: Hearing Grossly Normal Throat/Mouth: Normal Inspection, Normal Lips, Normal Oropharynx, Normal Voice, No Airway Compromise, Other (Hoarse voice) Head: Atraumatic, Normocephalic Neck: Normal Inspection Respiratory/Chest: No Respiratory Distress, Lungs Clear, Normal Breath Sounds, No Accessory Muscle Use Cardiovascular: Normal Peripheral Pulses, Regular Rate, Rhythm Extremities: Normal Inspection Neurological: Alert, Normal Cognition, Normal Gait Psychiatric: Normal Affect, Normal Mood Skin Exam: Warm, Dry, Intact, Normal Color Course - Vital Signs Last Recorded V/S: Last Vital Signs Temp 97.9 F 01/17/21 06:52 Pulse 81 01/17/21 06:52 Resp 16 01/17/21 06:52 BP 146/98 H 01/17/21 06:52 Pulse Ox 99 01/17/21 06:52 - Orders/Labs/Meds Labs: Laboratory Tests 01/17/21 Range/Units 07:25 SARS-CoV-2 RNA ([place]) NEGATIVE (NEGATIVE) - Re-Assessments/Exams Free Text/Narrative Re-Assessment/Exam: 01/17/21 07:04 Will get COVID-19 testing as patient is not vaccinated; will f/u results and disposition accordingly 01/17/21 08:23 COVID negative; will d/c with instructions to use cough drops for throat pain, c ontinue antibiotics. Departure - Departure Time of Disposition: 08:23 Disposition: Home, Self-Care 01 Condition: Good Clinical Impression: Sinusitis Qualifiers: Sinusitis location: maxillary Chronicity: acute Recurrence: not specified as recurrent Qualified Code(s): J01.00 - Acute maxillary sinusitis, unspecified - Discharge Information Instructions: Sinusitis, Adult, [id number], COVID-19 Vaccine Information Referrals: Fior Angel NP [Primary Care Provider] - Forms: ED Department Discharge Additional Instructions: Your COVID test is negative. Please continue your antibiotics. You can use cough drops to soothe your throat pain. The best way to protect yourself and others from COVID-19 is to take one of the three safe and effective vaccines that have been proven to substantially reduce risk of both infection and severe illness. [facility] is currently offering COVID vaccinations for anyone age 18 and older. To schedule an appointment call [phone]. Or, to be contacted by our clinics about scheduling your vaccine online, please go to [email or web address] The following information is given to patients seen in the emergency department who are being discharged to home. This information is to outline your options for follow-up care. We provide all patients seen in our emergency department with a follow-up referral. The need for follow-up, as well as the timing and circumstances, are variable depending upon the specifics of your emergency department visit. If you don't have a primary care physician on staff, we will provide you with a referral. We always advise you to contact your personal physician following an emergency department visit to inform them of the circumstance of the visit and for follow-up with them and/or the need for any referrals to a consulting specialist. The emergency department will also refer you to a specialist when appropriate. This referral assures that you have the opportunity for follow-up care with a specialist. All of these measure are taken in an effort to provide you with optimal care, which includes your follow-up. Under all circumstances we always encourage you to contact your private physician who remains a resource for coordinating your care. When calling for follow-up care, please make the office aware that this follow-up is from your recent emergency room visit. If for any reason you are refused follow-up, please contact the [facility] Emergency Department at and asked to speak to the emergency department charge nurse. Please follow up with your primary care physician. If you do not have a primary care physician, see below: [facility] Primary [facility] [address] [place] [id number] [facility] [address] [place] [address] Sepsis Event Note (ED) - Focused Exam Vital Signs: Vital Signs Temp Pulse Resp BP Pulse Ox 01/17/21 06:52 97.9 F 81 16 146/98 H 99
[2021-01-17 06:57] VITALS: BP 146/98; PULSE 81
== END 2021-01-17 08:59 | disposition home or self-care (01) ==
LOC: MW.ED 06:37
DX: J01.00 Acute maxillary sinusitis, unspecified (principal); Z88.1 Allergy status to other antibiotic agents; Z91.041 Radiographic dye allergy status; Z88.6 Allergy status to analgesic agent; Z88.5 Allergy status to narcotic agent; Z88.8 Allergy status to other drugs, medicaments and biological substances; Z20.822 Contact with and (suspected) exposure to COVID-19
CPT/HCPCS: 99283; U0002

== ENCOUNTER 2021-10-09 20:27 | Emergency (ER) | payer MEDICARE, MEDICAID ==
[2021-10-09 20:46] VITALS: BP 135/88; PULSE 81
== END 2021-10-09 21:08 | disposition home or self-care (01) ==
LOC: MW.ED 20:27
DX: H01.001 Unspecified blepharitis right upper eyelid (principal); Z88.8 Allergy status to other drugs, medicaments and biological substances; Z88.6 Allergy status to analgesic agent
CPT/HCPCS: 99283

== ENCOUNTER 2022-01-03 19:44 | Emergency (ER) | payer MEDICARE | END 2022-01-03 21:35 | disposition left against medical advice (07) | LOC: MW.ED 19:44 | DX: Z53.21 Procedure and treatment not carried out due to patient leaving prior to being seen by health care provider (principal) ==

== ENCOUNTER 2022-01-04 13:43 | Emergency (ER) | payer MEDICARE, MEDICAID ==
[2022-01-04 16:04] VITALS: BP 142/65; PULSE 65
== END 2022-01-04 16:03 | disposition home or self-care (01) ==
LOC: MW.ED 13:43
DX: L03.116 Cellulitis of left lower limb (principal); Z76.0 Encounter for issue of repeat prescription; Z88.1 Allergy status to other antibiotic agents; Z91.041 Radiographic dye allergy status; Z88.6 Allergy status to analgesic agent; Z88.5 Allergy status to narcotic agent; Z79.899 Other long term (current) drug therapy; Z88.8 Allergy status to other drugs, medicaments and biological substances
CPT/HCPCS: 99283

== ENCOUNTER 2022-01-14 20:20 | Emergency (ER) | payer MEDICARE, MEDICAID ==
[2022-01-14 21:53] LABS: POTASSIUM,K 3.2 mmol/L (3.5-5.1)
[2022-01-14] MEDS ORDERED: Potassium Chloride 20 MEQ Tab.ER PO ONE (22:24)
[2022-01-14] MEDS ORDERED: Cephalexin 500 MG Cap PO ONE (22:24)
[2022-01-15] MEDS ORDERED: Enoxaparin 150 MG/1 ML Syringe SUBCUT STA (00:06)
[2022-01-15 00:48] VITALS: BP 122/68; PULSE 75
== END 2022-01-15 00:47 | disposition home or self-care (01) ==
LOC: MW.ED 20:20
DX: L03.116 Cellulitis of left lower limb (principal); E87.6 Hypokalemia; R60.0 Localized edema; R79.89 Other specified abnormal findings of blood chemistry; Z88.1 Allergy status to other antibiotic agents; Z91.041 Radiographic dye allergy status; Z88.6 Allergy status to analgesic agent; Z88.5 Allergy status to narcotic agent
CPT/HCPCS: 36415; 71045; 80053; 81001; 83880; 84703; 85025; 85379; 87086; 87088; 87186; 96372; 99283; A9270; J1650; 93970-26

== ENCOUNTER 2022-01-23 14:52 | Emergency (ER) | payer MEDICARE, MEDICAID ==
[2022-01-23 15:43] LABS: CARBON DIOXIDE,CO2 27.4 mmol/L (21.0-32.0); POTASSIUM,K 3.7 mmol/L (3.5-5.1)
[2022-01-23] MEDS: Sulfamethoxazole/Trimethoprim 800-160 MG Tab PO ONE (16:10)
[2022-01-23 16:19] VITALS: BP 128/77; PULSE 91
== END 2022-01-23 16:19 | disposition home or self-care (01) ==
LOC: MW.ED 14:52
DX: L03.115 Cellulitis of right lower limb (principal); L03.116 Cellulitis of left lower limb; Z91.041 Radiographic dye allergy status; Z88.1 Allergy status to other antibiotic agents; Z88.6 Allergy status to analgesic agent; Z88.5 Allergy status to narcotic agent; Z88.8 Allergy status to other drugs, medicaments and biological substances
CPT/HCPCS: 36415; 80053; 83880; 85025; 99284; A9270

== ENCOUNTER 2022-07-29 15:33 | Emergency (ER) | payer MEDICARE, MEDICAID ==
[2022-07-29] MEDS ORDERED: HYDROmorphone 1 MG/ML Syringe IM ONE (16:24)
[2022-07-29 17:23] VITALS: BP 140/71; PULSE 86
== END 2022-07-29 17:14 | disposition home or self-care (01) ==
LOC: MW.ED 15:33
DX: G89.29 Other chronic pain (principal); M54.50 Low back pain, unspecified; J45.909 Unspecified asthma, uncomplicated; Z87.891 Personal history of nicotine dependence; Z88.5 Allergy status to narcotic agent; Z88.8 Allergy status to other drugs, medicaments and biological substances; Z91.041 Radiographic dye allergy status; Z88.1 Allergy status to other antibiotic agents
CPT/HCPCS: 96372; 99283; J1170

== ENCOUNTER 2024-05-12 12:58 | Emergency (ER) | payer MEDICARE, MEDICAID ==
[2024-05-12] MEDS: Ketorolac 30 MG/ML SDV IM ONE (14:38)
[2024-05-12 15:21] VITALS: BP 150/90; PULSE 89
== END 2024-05-12 15:20 | disposition home or self-care (01) ==
LOC: MW.ED 12:58
DX: M54.16 Radiculopathy, lumbar region (principal); J45.909 Unspecified asthma, uncomplicated; Z75.8 Other problems related to medical facilities and other health care; Z88.1 Allergy status to other antibiotic agents; Z88.5 Allergy status to narcotic agent; Z88.8 Allergy status to other drugs, medicaments and biological substances; Z91.041 Radiographic dye allergy status; Z79.899 Other long term (current) drug therapy
CPT/HCPCS: 96372; 99283; J1885